=== PATIENT | female | born 1950 | race Caucasian/White ===

== ENCOUNTER 2017-12-08 18:44 | Inpatient (IN) ==
[2017-12-08] MEDS ORDERED: Naloxone 0.4 MG/ML INJ IVP PRN (21:09)
[2017-12-08] MEDS ORDERED: *HR* Metoprolol 5 MG/5 ML VIAL IVP PRN (21:13)
[2017-12-08] MEDS ORDERED: Ringers Solution, Lactated 1,000 ML IVC SCH (21:15)
[2017-12-08] MEDS: Ipratropium/Albuterol Neb 3 ML IH PRN (22:20)
[2017-12-08] MEDS: *HR* Heparin 5,000 UNIT/ML VIAL SQ SCH (22:49)
[2017-12-08] MEDS: Pantoprazole 40 MG VIAL IVP SCH ×2 (22:59→23:33)
--- NOTE | 2017-12-08 23:13 | Internal Med History&Physical ---
Date of Encounter: 12/08/17 Time of Encounter: 23:07 Internal Medicine - H&P: HPI Chief complaint: abdominal pain Admitted From: Hospital to Hospital Transfer Plans for Post Hospital Care: Home History of present illness: Ms. Morales is a 67 year old female presents with chief complaint of abdominal pain. Patient reports she has chronic abdominal pain secondary to abdominal hernias however since 2 weeks ago she had worsening abdominal pain along with nausea, vomiting, diarrhea. She reports a poor appetite secondary to abdominal pain. And pain worsens with movement as well as with coughing. She has chronic cough secondary to COPD. She is not oxygen dependent. Currently she is requiring 4 L. She denies hematemesis, hemoptysis. She is unclear if she has had melena or hematochezia. Patient denies fevers, chills, chest pain, shortness of breath, night sweats. She denies dysuria, hematuria, urinary frequency. She does report that she was treated for UTI with Macrobid recently. She wears a diaper and does not have a Harmon in place. Patient has history of UTIs Past Med Surg Social Fam HX - Past Medical History Medical history: arthritis, COPD, coronary artery disease, GERD, hyperlipidemia , hypertension, osteoporosis Additional medical history: Anemia. stage 3 CKD. Renal Mass Psychiatric history: anxiety - Past Surgical History Additional surgical history: left nephrectomy - Social History Smoking Status: Current every day smoker Alcohol use: none Drug use: none Internal Medicine - H&P: Meds Albuterol Sulfate [Ventolin Hfa] 18 gm IH Q6H 10/07/17 [History] Aspirin [Ecotrin] 325 mg PO DAILY 10/07/17 [History] Diltiazem HCl [Cardizem] 360 mg PO DAILY 10/07/17 [History] Furosemide [Lasix] 20 mg PO DAILY 10/07/17 [History] Isosorbide MONOnitrate (24 HR) [Imdur] 60 mg PO DAILY 10/07/17 [History] Montelukast Sodium [Singulair] 10 mg PO HS 10/07/17 [History] Omeprazole [PriLOSEC] 40 mg PO DAILY 10/07/17 [History] diazePAM [Valium] 10 mg PO DAILY 10/07/17 [History] 3 Allergy/AdvReac Type Severity Reaction Status Date / Time iodine AdvReac See Verified 10/07/17 14:34 Comments All Systems PM: A 10-system review of systems was performed and is negative for pertinent findings except as documented above in the HPI. Review of systems: Constitutional: Denies fever, chills HEENT: Denies headache, trauma, blurry vision, eye discharge, ear pain, ear discharge neck pain, sore throat, rhinorrhea Heart: Denies chest pain palpitations, LE edema Lungs: Poor shortness of breath, cough Abdomen: Reports abdominal pain, nausea, vomiting, diarrhea MSK: Denies back pain, falls, joint pain Kidney: Denies dysuria, hematuria Skin: Denies rash, ulcers Neuro: Denies numbness and tingling Psych: denies axniety, depression - Constitutional Vitals: Temp Pulse Resp BP Pulse Ox 98.3 F 103 18 92/61 88 12/08/17 21:10 12/08/17 21:10 12/08/17 22:24 12/08/17 21:10 12/08/17 22:24 Exam: General: pleasant, moderately distress, weak HEENT: Head atraumatic, normocephalic, EOMI, PERRL, absent ear discharge or trauma, Moist Mucous Membranes, uvula midline Neck: nontender to palpation, absent lymphadenopathy, Cardiovascualr: Sinus tachycardia no murmur, absent gallops or rubs, mild pedal edema bilaterally, radial pulses 2 out of 4 Lungs: Clear to auscultation bilaterally, not in respiratory distress, absent wheezing absent crackles Abdomen: Soft and tender to palpation in the umbilical region. Patient has umbilical hernia as well as right abdominal wall hernia. Skin: warm and dry, absent rash, absent open wounds and nodules MSK: absent clubbing, cyanosis, joints without swelling Neuro: Cranial nerves II through XII intact, UE and LE sensation equal bilaterally, alert oriented 3, Psych: good insight and judgment Internal Med - H&P Results - Labs Labs: Cardiac Enzymes 12/08/17 Range/Units 21:27 Troponin I 0.16 H* (< 0.04) ng/mL - Assessment and plan (1) Sepsis Current Visit: Yes Status: Acute Assessment and plan: presented with leukocytosis, tachycardia, tachypnea along with hypotension Secondary to UTI in conjunction with pancreatitis CT abdomen pelvis shows edema of the pancreas with pancreatic stranding and free fluid. There is no abscess Patient was given Flagyl and ceftriaxone in the ED He was given 2 L normal saline Lactic acid was 0.8 Plan: Obtain CBC in the morning. Telemetry. IV antibiotics. LR 75cc/hr Qualifiers: Sepsis type: sepsis due to unspecified organism Qualified Code(s): A41.9 - Sepsis, unspecified organism (2) UTI (urinary tract infection) Current Visit: Yes Status: Acute Assessment and plan: Patient presents with leukocytosis, hypotension Urinalysis shows turbid urine with pH of 9.0, moderate blood, leukocyte esterase and urine bacteria. There are a few squamous epithelial cells. Urine culture and blood cultures were collected at [facility] We will start patient on ceftriaxone and await culture results Qualifiers: Urinary tract infection type: acute cystitis Hematuria presence: with hematuria Qualified Code(s): N30.01 - Acute cystitis with hematuria (3) Pancreatitis Current Visit: Yes Status: Acute Assessment and plan: Patient presented with worsening abdominal pain for the last couple weeks CT abdomen pelvis showed evidence of pancreatitis. Gallbladder and liver within normal limits. No evidence of ductal dilation. denies alcohol use, trauma Lipase is 1624 LFT, T-ara WNL home meds lasix has been known to cause drug induced pancreatitis. and macrobid has been associated with pancreatitis Clear etiology of pancreatitis obtain triglycerides plan: NPO, zofran prn nausea, LR 75cc/hr, holding pain medication due to low BP. Qualifiers: Chronicity: acute Pancreatitis type: unspecified pancreatitis type Acute pancreatitis complication: no infection or necrosis Qualified Code(s): K85.90 - Acute pancreatitis without necrosis or infection, unspecified (4) Acute renal failure Current Visit: Yes Status: Acute Assessment and plan: NEETU on CKD in presence of sepsis Scr 3.38 previous SCR around 3 plan: strict I/O, avoid nephrotoxic agents, IVF, BMP in AM. Qualifiers: Acute renal failure type: unspecified Qualified Code(s): N17.9 - Acute kidney failure, unspecified (5) Elevated troponin Current Visit: Yes Status: Acute Assessment and plan: patient has had adynamic troponin in setting of NEETU on CKD 0.16, 0.15,0.16 EKg sinus tachycardia without ST elevation or depression no changes to previous denies chest pain likely demand ischemia no previous echocardiogram on file will obtain echo (6) Coronary artery disease Current Visit: Yes Status: Acute Assessment and plan: hx of CAD patient is on aspirin and metoprolol at home w/o chest pain EKG sinus tachycardia without ST elevation or depression plan: patient is NPO will hold aspirin. lopressor prn for HR >120 Qualifiers: Coronary Disease-Associated Artery/Lesion type: [place] artery [place] vs. transplanted heart: [place] heart Associated angina: without angina Qualified Code(s): I25.10 - Atherosclerotic heart disease of [place] coronary artery without angina pectoris (7) Anxiety Current Visit: Yes Status: Acute Assessment and plan: hx of anxiety on valium at home currently calm/ without anxiety will start ativan 0.5mg daily to prevent withdrawal (8) COPD (chronic obstructive pulmonary disease) Current Visit: Yes Status: Acute Assessment and plan: hx of COPD not on O2 at home currently requiring 4L O2 CXR negative for acute changes lung exam clear without crackles or wheezing prn nebulizer suspect patient is having respiratory distress 2nd to pain with respirations and coughing. Qualifiers: COPD type: unspecified COPD Qualified Code(s): J44.9 - Chronic obstructive pulmonary disease, unspecified (9) Aneurysm Current Visit: Yes Status: Acute Assessment and plan: CT abdomen pelvis showed new infrarenal aortic aneurysm 2.9 cm will need repeat follow up in 5 years follow up with PCP - Time Spent With Patient Total time spent is greater than 50% in coordination of care (as documented) at patient's floor/unit and/or counseling patient:
[2017-12-09] MEDS: Ipratropium/Albuterol Neb 3 ML IH PRN ×2 (04:18→21:11)
[2017-12-09] MEDS: Ondansetron 4 MG/2 ML VIAL IVP PRN (05:05)
[2017-12-09 05:14] LABS: Basophils # 0.1 K/mcL (0.0-0.2); Basophils % 0.3 %; Eosinophils # 0.2 K/mcL (0.0-0.6); Eosinophils % 0.8 %; Hematocrit 35.7 % (35.3-44.9); Immature Granulocytes % 0.8 % (0-4); Lymphocytes # 3.1 K/mcL (0.6-4.6); Lymphocytes % 15.3 %; Mean Corpuscular HGB Conc 30.8 g/dL (31.6-35.5); Mean Corpuscular Hemoglobin 29.6 pg (28.0-33.3); Mean Corpuscular Volume 96.2 fL (83.0-100.0); Mean Platelet Volume 9.7 fL (9.4-12.4); Monocytes % 4.9 %; Neutrophils # 15.8 K/mcL (1.6-8.9); Platelet Count 378 K/mcL (140-400); Red Blood Count 3.71 M/mcL (3.82-4.97); Red Cell Distribution Width 16.6 % (11.5-14.5); Segmented Neutrophils % 77.9 %
[2017-12-09 05:39] LABS: Albumin 2.1 g/dL (3.5-5.7); Albumin/Globulin Ratio 0.5 (1.1-2.2); Bilirubin,Total 0.2 mg/dL (0.3-1.0); Calcium 7.9 mg/dL (8.6-10.3); Globulin 4.1 g/dL (2.4-3.5); Total Protein 6.2 g/dL (6.4-8.9)
[2017-12-09] MEDS: *HR* Heparin 5,000 UNIT/ML VIAL SQ SCH ×3 (05:45→23:56)
[2017-12-09] MEDS: Pantoprazole 40 MG VIAL IVP SCH (08:51)
[2017-12-09] MEDS ORDERED: *HR* LORazepam 2 MG/ML VIAL IVP SCH (09:00)
--- NOTE | 2017-12-09 09:31 | Internal Med Progress Note ---
<Devonte Ramos - Last Filed: 12/09/17 10:26> Hospitalist Progress Note - Encounter Date of Encounter: 12/09/17 Time of Encounter: 09:00 - Subjective Interval History: 67 y/o F with hx of multiple abdominal hernias and recurrent UTIs presents to the ED on (12/08) with failure to thrive, increased weakness, and diarrhea. Pt was seen and evaluated at bedside. Pt is A&Ox3. Pt reports chronic abdominal pain as a result of her hernias in the umbilical and right abdominal wall areas however she experienced a worsening in this pain 2 weeks ago with movement and coughing. Pt also began to experience N/V and diarrhea two weeks ago. She describes her diarrhea has being watery. The abdominal pain was so severe pt has developed a poor appetite. Since arriving the pt has not experienced any episodes of diarrhea or felt nauseous. Nausea is currently being controlled with Zofran prn. Pt continues to deny hemoptysis, hematochezia, Pt reports hx of multiple UTIs but is unsure of the timeline she has had them. She has had one recently and was treated with Macrobid Pt additionally has a chronic dry and nonproductive cough secondary to her COPD. Pt has been a daily smoker for most of her life. PMHx includes dx of: arthritis, COPD, CAD, GERD, hyperlipidemia, htn, osteoporosis, anemia, CKD stage III, a renal mass, as well as anxiety. Pt has surgical hx of a left nephrectomy. Upon presenting Troponin levels were drawn OOR at 0.16. Additionally, an elevated lipase of 1624 was found. EKG upon admission showed sinus tachycardia with no ST elevation or depression Pt is currently NPO with a Harmon placed waiting on blood cx results for suspected UTI and echocardiogram to evaluate elevated Troponin levels. Pt is on telemetry with strict monitoring of I/O. - Exam Vitals: Temp Pulse Resp BP Pulse Ox 98.7 F 110 16 110/64 94 12/09/17 07:54 12/09/17 07:54 12/09/17 07:54 12/09/17 07:54 12/09/17 07:54 Exam: General: Pt is fatigued and appears weak. CV: RRR. No murmurs, rubs, or gallops. Radial pulses 2/4. Lung: Pt is experiencing noticeable shortness of breath. Lungs are CTAB. Abdomen: Pt experiences generalized abdominal tenderness with deep palpation - Assessment and Plan (1) Sepsis Current Visit: Yes Status: Acute Assessment and Plan: Pt arrived to the ED (12/08) meeting sepsis criteria of leukocytosis, tachycardia , tachypnea, and hypotension. CT Abdomen and pelvis found edema of the pancreas with pancreatic stranding and free fluid. No abscess noted. D Dimer: 1923 (H) Lactic Acid: 0.8 Pt currently on Ceftriaxone (IV) Pt given IVF (2L saline) LR 75 cc/hr Pt on telemetry CBC from this morning: WBC 20.2 (H), RBC 3.71 (L), Hgb 11 (L) (2) Pancreatitis Current Visit: Yes Status: Acute Assessment and Plan: Pt has had worsening abdominal pain for past [address] abdomen/pelvis found pancreatitis. GB/Liver WNL. No ductal dilation Pt denies alcohol use and trauma Admitting Lipase level of 1624 LFTs and T-ara WNL Etiology of pancreatitis could include pts home medications: Lasix as well as Macrobid TG levels found to be 259 (H), also a possible etiology Pt currently NPO Zofran prn nausea LR 75 cc/hr No current pain meds due to the pts hypotensive state Plan to possibly initiate a TG lowering medication such as fenofibrate following discharge (3) Acute renal failure Current Visit: Yes Status: Acute Assessment and Plan: Creatinine levels currently at 3.07 (H). Previous levels: 3.38 and 3. I/O is being closely watched. Last output 100 mL (wt has remained steady at 62.6 kg) BMP from this morning indicated Na and K WNL. Chloride values OOR Will retake BMP once fluid levels have been stabilized. Plan to increase LR fluids from 75cc/hr to help restore hydration Plan to take Renal ultrasound of the single right kidney and consult nephrology (4) Elevated troponin Current Visit: Yes Status: Acute Assessment and Plan: Pts levels: 0.15, 0.16, 0.16 Levels are checked Q6H EKG finds: sinus tach w/out ST elevation or depression Pt denies any chest pain Echocardiogram is pending (5) COPD (chronic obstructive pulmonary disease) Current Visit: Yes Status: Acute Assessment and Plan: Pt has hx of COPD for which she typically does not need oxygen. Currently pt is on 4L of O2 with a O2Sat of 93 CXR: No acute changes. Mild bibasilar atelectasis and low lung volumes. Lung exam: Pt has nebulizer prn It is possible this respiratory distress is secondary to pts current condition (6) Coronary artery disease Current Visit: Yes Status: Acute Assessment and Plan: Pt has hx of CAD and is taking Aspirin and Metoprolol at home to manage Pt has no complaint of CP Pt currently just taking the metoprolol and has Lopressor prn for HR>120 (7) UTI (urinary tract infection) Current Visit: Yes Status: Acute Assessment and Plan: Urinalysis found turbid urine with a pH of 9.0, moderate blood, leukocyte esterase, urine bacteria, and few squamous epithelial cells. Pt currently on Ceftriaxone awaiting results of blood cx (8) Aneurysm Current Visit: Yes Status: Acute Assessment and Plan: Abdomen CT incidentally found infrarenal aortic aneurysm measuring 2.9cm. As per guidelines, f/u with PCP every 5 yrs to manage (9) Anxiety Current Visit: Yes Status: Acute Assessment and Plan: Pt hx of anxiety for which she takes Valium Pt currently not anxious and has been placed on 0.5 mg Ativan to prevent w/ drawal (10) DVT prophylaxis Current Visit: Yes Status: Acute DVT Prophylaxis: SubQ heparin - Time Spent with Patient Total time spent is greater than 50% in coordination of care (as documented) at patient's floor/unit and/or counseling patient: Greater than 35 minutes Plan of Care Discussed with: patient Internal Medicine: Result - Labs CBC & Chem 7: 12/09/17 04:59 12/09/17 04:59 Labs: Short CBC 12/09/17 Range/Units 04:59 WBC 20.2 H (4.3-11.1) K/mcL Hgb 11.0 L D (11.5-15.4) g/dL Hct 35.7 (35.3-44.9) % Plt Count 378 (140-400) K/mcL Neutrophils # 15.8 H (1.6-8.9) K/mcL BMP 12/09/17 04:59 Sodium 139 Potassium 4.0 Chloride 118 H Carbon Dioxide 12 L BUN 52 H Creatinine 3.07 H Glucose 86 Calcium 7.9 L Cardiac Enzymes 12/08/17 12/09/17 Range/Units 21:27 04:59 Troponin I 0.16 H* 0.16 H* (< 0.04) ng/mL Liver Function 12/09/17 Range/Units 04:59 Total Bilirubin 0.2 L (0.3-1.0) mg/dL AST 7 L (13-39) Units/L ALT 3 L (7-52) Units/L Alkaline Phosphatase 111 H (34-104) Units/L Albumin 2.1 L (3.5-5.7) g/dL Consult Discharge Plan - Plan Referrals: NONE,PCP [Primary Care Provider] - <Levi Topete - Last Filed: 12/09/17 17:45> Hospitalist Progress Note - Encounter Date of Encounter: 12/09/17 - Exam Vitals: Temp Pulse Resp BP Pulse Ox 98.4 F 110 20 120/75 96 12/09/17 15:01 12/09/17 15:01 12/09/17 15:01 12/09/17 15:01 12/09/17 15:01 - Assessment and Plan (1) UTI (urinary tract infection) Current Visit: Yes Status: Acute (2) Sepsis Current Visit: Yes Status: Acute (3) Pancreatitis Current Visit: Yes Status: Acute (4) Aneurysm Current Visit: Yes Status: Inactive (5) Coronary artery disease Current Visit: Yes Status: Acute (6) Anxiety Current Visit: Yes Status: Acute (7) COPD (chronic obstructive pulmonary disease) Current Visit: Yes Status: Chronic (8) Elevated troponin Current Visit: Yes Status: Acute (9) Acute renal failure Current Visit: Yes Status: Acute - Time Spent with Patient Total time spent is greater than 50% in coordination of care (as documented) at patient's floor/unit and/or counseling patient: Internal Medicine: Result - Labs CBC & Chem 7: 12/09/17 04:59 12/09/17 15:15 Labs: Short CBC 12/09/17 Range/Units 04:59 WBC 20.2 H (4.3-11.1) K/mcL Hgb 11.0 L D (11.5-15.4) g/dL Hct 35.7 (35.3-44.9) % Plt Count 378 (140-400) K/mcL Neutrophils # 15.8 H (1.6-8.9) K/mcL BMP 12/09/17 12/09/17 04:59 15:15 Sodium 139 141 Potassium 4.0 4.1 Chloride 118 H 119 H Carbon Dioxide 12 L 16 L BUN 52 H 47 H Creatinine 3.07 H 2.98 H Glucose 86 80 Calcium 7.9 L 8.3 L Cardiac Enzymes 12/08/17 12/09/17 12/09/17 Range/Units 21:27 04:59 10:48 Troponin I 0.16 H* 0.16 H* 0.16 H* (< 0.04) ng/mL Liver Function 12/09/17 Range/Units 04:59 Total Bilirubin 0.2 L (0.3-1.0) mg/dL AST 7 L (13-39) Units/L ALT 3 L (7-52) Units/L Alkaline Phosphatase 111 H (34-104) Units/L Albumin 2.1 L (3.5-5.7) g/dL - Impressions Impressions Echocardiogram 12/09/17 07:00 Impressions: LVEF 65%. Normal LV chamber size, wall thickness and function. Indeterminate diastolic function. Mild right ventricular hypokinesis. No significant valvular dysfunction. No pulmonary hypertension. Estimated RA pressure is 3 mmHg. Left Ventricular Wall Motion: Rest Echo Findings All wall segments showed normal motion. Findings: Study Quality * Technically sub-optimal due to clinical status. ECG Findings * Sinus tachycardia. Left Ventricle * LVEF 65%. * Definity echo contrast was not used. * Normal LV chamber size, wall thickness and function. * Indeterminate diastolic function. Right Ventricle * Mild right ventricular hypokinesis. * RV not well seen, grossly normal size. Left Atrium * Normal left atrial size. Right Atrium * Right atrium is not well visualized. Interatrial Septum * Interatrial septum not well evaluated. Aortic Valve * No aortic regurgitation. * No aortic stenosis. Mitral Valve * Normal mitral valve structure and function. * No mitral regurgitation. Tricuspid Valve * Tricuspid valve not well visualized. * Trace tricuspid regurgitation. * Unable to estimate RVSP due to lack of TR jet. * Estimated RVSP is 33 mmHg. * Estimated RA pressure is 3 mmHg. * No pulmonary hypertension. Pulmonic Valve * Pulmonic valve not well visualized. Aorta * Normally sized aortic root. Pericardium * The pericardium appears normal. IVC * The IVC is not well evaluated. Retroperitoneum Ultrasound 12/09/17 14:30 IMPRESSION: Possible mildly hyperechoic 2.3 cm mass within the upper pole of the right kidney. This finding is suspected to be artifactual possibly representing medical renal disease rather than due to a true renal mass. Either follow-up ultrasound study or MRI of the right kidney is suggested for further evaluation. Left nephrectomy. Cholelithiasis. D/ / 12/09/2017 15:32:11 Donato Whipple MD / asael Interpreting Provider: Donato Whipple MD Chest X-Ray 12/09/17 16:00 IMPRESSION: 1. Suboptimal chest, chin and neck obscuring portions of the upper right and left lung. 2. Bibasilar consolidation, left greater than right with bilateral pleural effusion. Pulmonary edema or pneumonia are considerations. 3. Vascular engorgement and cephalization is demonstrated with bilateral peribronchial cuffing and perivascular haziness typical of congestive heart failure. 4. Mild cardiomegaly. D/ / Jaydon Mojica / Jaydon Mojica Interpreting Provider: Jaydon Mojica - Attending Attestation The history, physical exam, and medical decision making was performed by the medical student either while I was physically present and actively involved or I personally re-performed the exam and medical decision making. I have verified the accuracy of the medical student's documentation with regards to the history, physical exam findings, and medical decision making on 12/09/17. Ms Morales was admitted earlier this AM with acute pancreatitis. She is hungry at this time Exam Alert though somnolent Vitals good except for some tachycardia Abd with tenderness Agree with assessment and plan as above and in H&P <Devonte Ramos S - Last Filed: 12/09/17 10:26> (1) Sepsis Qualifiers: Sepsis type: sepsis due to unspecified organism Qualified Code(s): A41.9 - Sepsis, unspecified organism (3) Acute renal failure Qualifiers: Acute renal failure type: unspecified Qualified Code(s): N17.9 - Acute kidney failure, unspecified (5) COPD (chronic obstructive pulmonary disease) Qualifiers: COPD type: unspecified COPD Qualified Code(s): J44.9 - Chronic obstructive pulmonary disease, unspecified (6) Coronary artery disease Qualifiers: Coronary Disease-Associated Artery/Lesion type: [place] artery [place] vs. transplanted heart: [place] heart Associated angina: without angina Qualified Code(s): I25.10 - Atherosclerotic heart disease of [place] coronary artery without angina pectoris (7) UTI (urinary tract infection) Qualifiers: Urinary tract infection type: acute cystitis Hematuria presence: with hematuria Qualified Code(s): N30.01 - Acute cystitis with hematuria <Levi Topete - Last Filed: 12/09/17 17:45> (1) UTI (urinary tract infection) Qualifiers: Urinary tract infection type: acute cystitis Hematuria presence: with hematuria Qualified Code(s): N30.01 - Acute cystitis with hematuria (2) Sepsis Qualifiers: Sepsis type: sepsis due to unspecified organism Qualified Code(s): A41.9 - Sepsis, unspecified organism (3) Pancreatitis Qualifiers: Chronicity: acute Pancreatitis type: other Acute pancreatitis complication: no infection or necrosis Qualified Code(s): K85.80 - Other acute pancreatitis without necrosis or infection (5) Coronary artery disease Qualifiers: Coronary Disease-Associated Artery/Lesion type: [place] artery [place] vs. transplanted heart: [place] heart Associated angina: without angina Qualified Code(s): I25.10 - Atherosclerotic heart disease of [place] coronary artery without angina pectoris (7) COPD (chronic obstructive pulmonary disease) Qualifiers: COPD type: unspecified COPD Qualified Code(s): J44.9 - Chronic obstructive pulmonary disease, unspecified (9) Acute renal failure Qualifiers: Acute renal failure type: unspecified Qualified Code(s): N17.9 - Acute kidney failure, unspecified
[2017-12-09] MEDS ORDERED: Ringers Solution, Lactated 1,000 ML IVC SCH ×2 (10:26→16:03)
--- NOTE | 2017-12-09 14:01 | Nephrology Consult Note ---
Date of Encounter: 12/09/17 Time of Encounter: 13:50 Assessment and Plan (1) CKD (chronic kidney disease) stage 4, GFR 15-29 ml/min Current Visit: Yes Status: Acute Unsure if this is NEETU related to dehydration or progression of CKD. Spoke with Dr. Barclay agree with IVF at 100/hr, did suggest adding HCO3 since Carbon dioxide is 12. Avoid nephrotoxins and renal dose all medications. Strict I/O. On 11/02/17 Retroperitoneal US did show some hydronephrosis,she does have a Harmon Cath now. UA/Urine NA ordered. Uric Acid and CPK ordered. (2) Pancreatitis Current Visit: Yes Status: Acute Per primary. Qualifiers: Qualified Code(s): K85.90 - Acute pancreatitis without necrosis or infection , unspecified (3) Sepsis Current Visit: Yes Status: Acute Per primary. Qualifiers: Sepsis type: sepsis due to unspecified organism Qualified Code(s): A41.9 - Sepsis, unspecified organism History of Present Illness - Reason for Consult Consult date: 12/09/17 Chronic Kidney Disease - Chief Complaint abdominal pain - History of Present Illness Ms. Morales is a 67 year old female presented with chief complaint of abdominal pain. PMH: arthritis, COPD, coronary artery disease, GERD, hyperlipidemia, hypertension, osteoporosis and CKD III. She is managed outpatient by Dr. Connor. She admits to nausea/vomiting/diarrhea with abdominal pain. She had a left nephrectomy approximately 10 years ago. She denied CP/SOB. She did have a Retroperitoneal US on 11/02/17 which did show hydronephrosis and a possible renal mass. She has seen Dr. Ma and was referred to a urologist in [place] later this month. The daughter did tell me that she does have some hematuria. GFR in September of this year was 16, it is now 15. Agree with IV hydration however would caution with CHF. Renal US already ordered by primary team. NEETU workup initiated. Pt is off the floor at this time for echo. Continue to avoid nephrotoxins if possible. Strict I/O. Past Med Surg Social Fam HX - Past Medical History Medical history: arthritis, COPD, coronary artery disease, GERD, hyperlipidemia , hypertension, osteoporosis Additional medical history: Anemia. stage 3 CKD. Renal Mass Psychiatric history: anxiety - Past Surgical History Additional surgical history: left nephrectomy - Social History Smoking Status: Current every day smoker Alcohol use: none Drug use: none Medications and Allergies Albuterol Sulfate [Ventolin Hfa] 2 puff IH Q6H PRN 10/07/17 [History] Aspirin [Ecotrin] 325 mg PO DAILY 10/07/17 [History] Furosemide [Lasix] 20 mg PO DAILY 10/07/17 [History] Isosorbide MONOnitrate (24 HR) [Imdur] 60 mg PO DAILY 10/07/17 [History] Montelukast Sodium [Singulair] 10 mg PO HS 10/07/17 [History] Omeprazole [PriLOSEC] 40 mg PO DAILY 10/07/17 [History] diazePAM [Valium] 5 mg PO TID PRN 10/07/17 [History] Diltiazem HCl [Cardizem Cd] 360 mg PO DAILY 12/09/17 [History] 3 Allergy/AdvReac Type Severity Reaction Status Date / Time iodine AdvReac See Verified 10/07/17 14:34 Comments Exam - Vital Signs Vital signs: Initial Vital Signs Temp Pulse Resp BP Pulse Ox 98.3 F 103 18 92/61 86 12/08/17 21:10 12/08/17 21:10 12/08/17 21:10 12/08/17 21:10 12/08/17 21:10 Vital Signs - Last 8 Hours Temp Pulse Resp BP Pulse Ox 12/09/17 11:15 98.3 F 109 20 114/63 88 12/09/17 07:54 98.7 F 110 16 110/64 94 Intake and Output 12/08/17 12/09/17 12/09/17 23:59 07:59 15:59 Intake Total 0 / 0 0 / 0 1000 / 1000 Output Total 100 / 100 Balance 0 / 0 -100 / -100 1000 / 1000 Intake: IV Fluids 1000 / 1000 Lactated Ringers 1,000 ML @ 75 1000 / 1000 mls/hr IVC .[id number] [facility] Rx#: [id number] Oral 0 / 0 0 / 0 Output: Urine 50 / 50 Catheter 50 / 50 Other: # Voids 1 1 Weight 62.6 kg 62.6 kg Blood Glucose* 77 Patient Weight 12/09/17 23:59 Weight 62.6 kg Results - Lab Results 12/09/17 04:59 12/09/17 04:59 Most recent lab results Calcium 7.9 mg/dL (8.6-10.3) L 12/09/17 04:59 Consult Discharge Plan - Plan Referrals: NONE,PCP [Primary Care Provider] -
[2017-12-09 15:36] LABS: VBG HCO3 14 mEq/L (21-27); VBG PCO2 38 mmHg (41-51); VBG PH 7.18 pH Units (7.32-7.42); VBG PO2 79 mmHg (25-50)
[2017-12-09] MEDS ORDERED: Sodium Bicarbonate 150 MEQ in D5% in Water 1,000 ML IVC SCH (15:45)
[2017-12-09 15:54] LABS: Calcium 8.3 mg/dL (8.6-10.3); Potassium 4.1 mEq/L (3.5-5.1); Uric Acid 8.2 mg/dL (2.3-7.6)
[2017-12-09] MEDS ORDERED: cefTRIAXone 2,000 MG in Water for inj. (sterile) 20 ML 20 ML IVPB SCH (16:00)
[2017-12-09 19:23] LABS: Bilirubin,Urine Negative (Negative); Blood,Urine Moderate (Negative); Clarity,Urine Turbid (Clear); Color,Urine Yellow (Yellow); Glucose,Urine (UA) Normal (Normal); Ketones,Urine Negative (Negative); Leukocyte Esterase,Urine Large (Negative); Nitrite,Urine Negative (Negative); PH,Urine 6.5 pH Units (5.0-8.0); Protein,Urine 100 mg/dL (Neg-Trace); Specific Gravity,Urine 1.006 (1.010-1.025); Urobilinogen,Urine Normal (Normal)
[2017-12-09 19:24] LABS: Bacteria,Urine None Seen per hpf (None-Few); Hyaline Casts,Urine None Seen per lpf (None-Few); Squamous Epithelial Cell,Urine Moderate per lpf (None-Few); WBC,Urine TNTC per hpf (0-3)
[2017-12-09 19:32] LABS: Protein/Creatinine Ratio,Urine 7.09 mg/mg (0.00-0.20)
[2017-12-10 04:54] LABS: VBG HCO3 22 mEq/L (21-27); VBG PCO2 54 mmHg (41-51); VBG PH 7.22 pH Units (7.32-7.42); VBG PO2 71 mmHg (25-50)
[2017-12-10 04:59] LABS: Hematocrit 35.7 % (35.3-44.9); Hemoglobin 11.1 g/dL (11.5-15.4); Mean Corpuscular HGB Conc 31.1 g/dL (31.6-35.5); Mean Corpuscular Hemoglobin 30.2 pg (28.0-33.3); Mean Corpuscular Volume 97.3 fL (83.0-100.0); Mean Platelet Volume 10.2 fL (9.4-12.4); Platelet Count 381 K/mcL (140-400); Red Blood Count 3.67 M/mcL (3.82-4.97); Red Cell Distribution Width 16.6 % (11.5-14.5)
[2017-12-10 05:25] LABS: Albumin 1.9 g/dL (3.5-5.7); Albumin/Globulin Ratio 0.5 (1.1-2.2); Bilirubin,Total 0.2 mg/dL (0.3-1.0); Calcium 7.9 mg/dL (8.6-10.3); Potassium 3.5 mEq/L (3.5-5.1); Total Protein 5.9 g/dL (6.4-8.9)
[2017-12-10] MEDS: Ipratropium/Albuterol Neb 3 ML IH PRN (05:54)
[2017-12-10] MEDS: Ipratropium/Albuterol Neb 3 ML IH SCH ×5 (08:43→23:29)
[2017-12-10] MEDS: *HR* Heparin 5,000 UNIT/ML VIAL SQ SCH ×2 (08:45→16:24)
[2017-12-10] MEDS: Pantoprazole 40 MG VIAL IVP SCH (08:46)
--- NOTE | 2017-12-10 08:46 | Nephrology Progress Note ---
Date of Encounter: 12/10/17 Time of Encounter: 17:00 - Assessment and Plan (1) CKD (chronic kidney disease) stage 4, GFR 15-29 ml/min Current Visit: Yes Status: Chronic CKD stage IV and she is at her baseline. She initially presented with pancreatitis and required volume expansion. Now that her CXR is suggesting a hypervolemic status (with bibasilar consolidations), I agree with stopping the IVF, and recommend resuming diuretics. I see that her home Rx includes Furosemide 20mg IV x1, so let's start with this as a test dose and titrate by UOP and clinical status/response. She may need D5w tomorrow if the hypernatremia worsens. Meanwhile, continue to follow a renal protective strategy as able by avoiding concomitant nephrotoxic medications / exposures, if able. Continue to follow strict I/Os, daily weights and dosing of renally cleared Rx by eGFR or CrCl. Will follow with you. (2) History of nephrectomy Current Visit: Yes Status: Chronic Hx of left nephrectomy, and in this solitary renal state, this has likely contributed at least in part to her CKD stage IV. (3) Renal cyst, acquired, right Current Visit: Yes Status: Acute Noted on renal U/S to be a mildly hyperechoic right 2.3cm lesion, and I recommend repeat retroperitoneal U/S or CT abd without contrast or MRI abd without gadolinium as an outpt in about 3 months. (4) Pancreatitis Current Visit: Yes Status: Acute Qualifiers: Qualified Code(s): K85.90 - Acute pancreatitis without necrosis or infection , unspecified (5) Sepsis Current Visit: Yes Status: Acute Qualifiers: Sepsis type: sepsis due to unspecified organism Qualified Code(s): A41.9 - Sepsis, unspecified organism (6) Hypernatremia Current Visit: Yes Status: Acute See above. (7) Hypomagnesemia Current Visit: Yes Status: Acute Will provide 2gm Mag Sulfate and I've ordered written instruction to pharmacy to mix in sterile water or D5W (instead of 0.9% saline d/t the mild hypernatremia). She is borderline hypokalemic as well, and since I've added Lasix, I've also ordered a low dose KCl IV since she is NPO. Subjective Principal diagnosis: CKD Interval history: Pt was s/e and her son, daughter and floor RN were present. She reported feeling thirsty. She affirmed having mild central abd pain during the exam. She has nausea with a vomit bag at bedside. Objective - Vital Signs Vital signs: Vital Signs Temp Pulse Resp BP Pulse Ox 12/10/17 07:27 97.5 F L 117 17 101/67 87 12/10/17 05:54 26 87 12/10/17 04:00 97.9 F 110 16 102/66 85 12/10/17 00:00 98 F 121 16 111/65 92 12/09/17 21:16 92 12/09/17 21:11 18 92 12/09/17 20:00 98 F 117 16 117/82 93 12/09/17 15:01 98.4 F 110 20 120/75 96 12/09/17 11:15 98.3 F 109 20 114/63 88 Intake and Output 12/09/17 12/10/17 12/10/17 23:59 07:59 15:59 Intake Total 0 / 0 0 / 0 Output Total 700 / 700 Balance 0 / 0 -700 / -700 Intake: Oral 0 / 0 0 / 0 Output: Urine 300 / 300 Catheter 400 / 400 Other: Weight 63.5 kg Blood Glucose* 79 63 Patient Weight 12/10/17 23:59 Weight 63.5 kg - General Appearance General appearance: Present: appears started age, obese, fatigue, frail EENT: Present: ATNC, mucous membranes dry Neck: Present: supple Respiratory: Present: clear Cardiology: Present: no edema, normal S1, normal S2 Gastrointestinal: Present: normoactive bowel sounds, tenderness (mild without rebound in the epigastric area) Integumentary: Present: no rash, warm and dry Neurologic: Present: no focal deficit, no asterixis Musculoskeletal: Present: no erythema, no clubbing Psychiatric: Present: cooperative - Lab 12/10/17 15:21 12/10/17 15:21 Most recent lab results Calcium 7.9 mg/dL (8.6-10.3) L 12/10/17 04:34 Urine Creatinine 23 mg/dL 12/09/17 19:10 Urine Sodium 68.7 mEq/L 12/09/17 19:10 Urine Total Protein 163 mg/dL (1-14) H 12/09/17 19:10 - Imaging Kidney/bladder ultrasound: report reviewed (left nephrectomy with right renal cyst) Consult Discharge Plan - Plan Referrals: NONE,PCP [Primary Care Provider] -
[2017-12-10] MEDS ORDERED: D5% in Water 1,000 ML IVC PRN (08:48)
[2017-12-10] MEDS ORDERED: Dextrose Gel 15 GM/37.5 ML TUBE PO PRN ×2 (08:48)
[2017-12-10] MEDS ORDERED: *HR* Dextrose 50 % in Water (Syg) 50 ML SYRINGE IVP PRN (08:48)
[2017-12-10] MEDS: Piperacillin/Tazobactam 3.375 GM in 0.9 % Sodium Chloride Mini Bag 100 ML IVPB SCH ×2 (08:57→21:01)
[2017-12-10] MEDS ORDERED: Furosemide 20 MG TABLET PO SCH (09:00)
[2017-12-10] MEDS ORDERED: Ringers Solution, Lactated 1,000 ML IVC SCH (10:00)
--- NOTE | 2017-12-10 10:04 | Internal Med Progress Note ---
<Devonte Ramos - Last Filed: 12/10/17 13:23> Hospitalist Progress Note - Encounter Date of Encounter: 12/10/17 Time of Encounter: 07:30 - Subjective Interval History: 67 y/o F with hx of multiple abdominal hernias and recurrent UTIs presents to the ED on (12/08) with failure to thrive, increased weakness, and diarrhea. Pt was seen and evaluated at bedside. Pt is A&Ox3. Pt reports chronic abdominal pain as a result of her hernias in the umbilical and right abdominal wall areas however she experienced a worsening in this pain 2 weeks ago with movement and coughing. Pt also began to experience N/V and diarrhea two weeks ago. She describes her diarrhea has being watery. The abdominal pain was so severe pt has developed a poor appetite. Since arriving the pt has not experienced any episodes of diarrhea or felt nauseous. Nausea is currently being controlled with Zofran prn. Pt continues to deny hemoptysis, hematochezia, Pt reports hx of multiple UTIs but is unsure of the timeline she has had them. She has had one recently and was treated with Macrobid Pt additionally has a chronic dry and nonproductive cough secondary to her COPD. Pt has been a daily smoker for most of her life. PMHx includes dx of: arthritis, COPD, CAD, GERD, hyperlipidemia, htn, osteoporosis, anemia, CKD stage III, a renal mass, as well as anxiety. Pt has surgical hx of a left nephrectomy and recent renal ultrasound found a mass in her remaining right kidney (12/09/17). Upon presenting (12/09/17) Troponin levels were drawn OOR at 0.16. EKG upon admission showed sinus tachycardia with no ST elevation or depression. Additionally, an elevated lipase of [address] of abdomen and pelvis was significant for pancreatitis and a fluid regimen was started on LR at 77cc/ hr. LR was increased to 150 cc/hr when BMP showed OOR electrolytes consistent with decreased kidney function. CXR taken after this point showed B/L pleural effusion with mild cardiomegaly (). A third CXR taken this morning (12/10) continued to show B/L pulmonary effusions and no pulmonary edema. Echocardiogram was WNL with an EF of 65%. Pt ABG had pH of 7.18. Diffuse rales were heard in the lungs. At this point bicarb was added to pt regimen overnight and LR was taken back down to 100cc/hr This morning pt BMP had improved with kidney function back to pt baseline (SCr from 3.3 at admission to 2.78 today) and ABG showing pH 7.22, pCO2 54 (H), and pO2 71. However vitals were concerning with a downtrending BP. BP at 5:00 this morning was 101/67. Pt was on 8 L of O2 with a Sat around 80% however fluids were stopped this morning. In order to resume fluids and preserve O2 levels pt was switched over to a bipap (FiO2 0.8). Duoneb has been scheduled QH to support respiratory efforts. Nephrology has been consulted. Currently holding fluids and adding Lasix 20mg PO to assist lung function. Urine cx identifies a gram negative catalino. Blood cx results pending. Pt antibiotic switched to Zosyn. Ativan has been D/C until pt requires it Pt glucose level was 63 this morning and D50 was added. Pt is currently NPO with a Harmon placed waiting on blood cx results and repeat CXR to evaluate lungs. Repeat CXRs will be scheduled to monitor lung status. Pt is on telemetry with strict monitoring of I/O. Last urine output was 700 mL. - Exam Vitals: Temp Pulse Resp BP Pulse Ox 97.5 F L 117 24 101/67 91 12/10/17 07:27 12/10/17 07:27 12/10/17 08:43 12/10/17 08:43 12/10/17 08:43 Exam: Head: normocephalic CV: RRR, No murmurs rubs or gallops Lungs: Diffuse rales. Abdomen: Tender to deep palpation - Assessment and Plan (1) Sepsis Current Visit: Yes Status: Acute Assessment and Plan: Pt arrived to the ED (12/08) meeting sepsis criteria of leukocytosis, tachycardia , tachypnea, and hypotension. CT Abdomen and pelvis found edema of the pancreas with pancreatic stranding and free fluid. No abscess noted. D Dimer: 1923 (H) Lactic Acid: 0.5 (12/10), 0.8 (12/09) Urine Cx: Gram negative catalino. Pt given IVF (2L saline) (12/09) On admission pt was given Ceftriaxone, but now due to pts worsening clinical picture with possible infectious etiology, the medication has been switched to Zosyn. Doubt respiratory source. Pt on telemetry (2) Pancreatitis Current Visit: Yes Status: Acute Assessment and Plan: Pt has had worsening abdominal pain for past [address] abdomen/pelvis found pancreatitis. GB/Liver WNL. No ductal dilation Pt denies alcohol use and trauma Admitting Lipase level of 1624 LFTs and T-ara WNL Etiology of pancreatitis could include pts home medications: Lasix as well as Macrobid TG levels found to be 259 (H), also a possible etiology Pt currently NPO Zofran prn nausea LR 75 cc/hr on (12/09) increased to 150cc/hr and later decreased to 100 cc/hr later that day with the pt presenting in an acidotic state.. LR D/C due to declining respiratory capacity and unstable vitals (BP 101/67) this morning (). Nephro consulted due to pt history of left nephrectomy and mass in right kidney. NEETU is improving (Cr has improved from 3.3 to 2.3 which is around patient's baseline). Urine output is 1.5 kg/hr. Filipe's Criteria determined to be 4 points, indicating a 15% predicted mortality Currently fluids are being held and pt is starting Lasix 20mg PO to assist respiratory function with spot diuresis as needed. No current pain meds due to the pts hypotensive stat Plan to recheck lipase Plan to possibly initiate a TG lowering medication such as fenofibrate following discharge (3) Acute renal failure Current Visit: Yes Status: Acute Assessment and Plan: Creatinine levels currently back at baseline at 2.78. Previous levels: 3.38, 3, 3.07, 2.98) I/O is being closely watched. Last output 700 mL LR fluids were increased from 75cc/hr to 150cc/hr to help restore hydration and then later to 100 cc/hr (12/09). Currently pt is not on fluids as to preserve lung function. Current urine out put is 1.5/kg/hr Nephrology was consulted (12/09). Renal ultrasound was taken and found a mass in the right kidney. 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 Currently pt is on 4L of O2 with a O2Sat of 93 CXR: No acute changes. Mild bibasilar atelectasis and low lung volumes. Second CXR taken on (12/09) showed B/L pleural effusion and mild cardiomegaly Lung exam: diffuse rales were heard in pt lungs (12/09) and continue to be present Pt has nebulizer prn It is possible this respiratory distress is secondary to pts current condition Pt is on bipap with FiO2 at 0.8. O2 sat at 93% (6) Coronary artery disease Current Visit: Yes Status: Acute Assessment and Plan: Pt has hx of CAD and is taking Aspirin and Metoprolol at home to manage Pt has no complaint of CP Pt currently just taking the metoprolol and has Lopressor prn for HR>120 (7) UTI (urinary tract infection) Current Visit: Yes Status: Acute Assessment and Plan: Urinalysis found turbid urine with a pH of 9.0, moderate blood, leukocyte esterase, urine bacteria, and few squamous epithelial cells. Urine cx found a gram negative catalino Pt switched from Ceftriaxone to Zosyn Blood cx results pending (8) Aneurysm Current Visit: Yes Status: Acute Assessment and Plan: Abdomen CT incidentally found infrarenal aortic aneurysm measuring 2.9cm. As per guidelines, f/u with PCP every 5 yrs to manage (9) Anxiety Current Visit: Yes Status: Acute Assessment and Plan: Pt hx of anxiety for which she takes Valium Pt currently not anxious and has been placed on 0.5 mg Ativan to prevent w/ drawal (12/09) Ativan D/C (12/10) (10) DVT prophylaxis Current Visit: Yes Status: Acute Assessment and Plan: Heparin SubQ - Time Spent with Patient Total time spent is greater than 50% in coordination of care (as documented) at patient's floor/unit and/or counseling patient: Internal Medicine: Result - Labs CBC & Chem 7: 12/10/17 04:34 12/10/17 04:34 Labs: Short CBC 12/10/17 Range/Units 04:34 WBC 17.1 H (4.3-11.1) K/mcL Hgb 11.1 L (11.5-15.4) g/dL Hct 35.7 (35.3-44.9) % Plt Count 381 (140-400) K/mcL BMP 12/09/17 12/10/17 15:15 04:34 Sodium 141 144 Potassium 4.1 3.5 Chloride 119 H 117 H Carbon Dioxide 16 L 20 L BUN 47 H 45 H Creatinine 2.98 H 2.78 H Glucose 80 93 Calcium 8.3 L 7.9 L Cardiac Enzymes 12/09/17 Range/Units 10:48 Troponin I 0.16 H* (< 0.04) ng/mL Liver Function 12/10/17 Range/Units 04:34 Total Bilirubin 0.2 L (0.3-1.0) mg/dL AST 6 L (13-39) Units/L ALT 3 L (7-52) Units/L Alkaline Phosphatase 109 H (34-104) Units/L Albumin 1.9 L (3.5-5.7) g/dL Urine 12/09/17 Range/Units 19:10 Urine Color Yellow (Yellow) Urine Clarity Turbid A (Clear) Urine pH 6.5 (5.0-8.0) pH Units Ur Specific [place] 1.006 L (1.010-1.025) Urine Protein 100 H (Neg-Trace) mg/dL Urine Glucose (UA) Normal (Normal) mg/dL - Impressions Impressions Echocardiogram 12/09/17 07:00 Impressions: LVEF 65%. Normal LV chamber size, wall thickness and function. Indeterminate diastolic function. Mild right ventricular hypokinesis. No significant valvular dysfunction. No pulmonary hypertension. Estimated RA pressure is 3 mmHg. Left Ventricular Wall Motion: Rest Echo Findings All wall segments showed normal motion. Findings: Study Quality * Technically sub-optimal due to clinical status. ECG Findings * Sinus tachycardia. Left Ventricle * LVEF 65%. * Definity echo contrast was not used. * Normal LV chamber size, wall thickness and function. * Indeterminate diastolic function. Right Ventricle * Mild right ventricular hypokinesis. * RV not well seen, grossly normal size. Left Atrium * Normal left atrial size. Right Atrium * Right atrium is not well visualized. Interatrial Septum * Interatrial septum not well evaluated. Aortic Valve * No aortic regurgitation. * No aortic stenosis. Mitral Valve * Normal mitral valve structure and function. * No mitral regurgitation. Tricuspid Valve * Tricuspid valve not well visualized. * Trace tricuspid regurgitation. * Unable to estimate RVSP due to lack of TR jet. * Estimated RVSP is 33 mmHg. * Estimated RA pressure is 3 mmHg. * No pulmonary hypertension. Pulmonic Valve * Pulmonic valve not well visualized. Aorta * Normally sized aortic root. Pericardium * The pericardium appears normal. IVC * The IVC is not well evaluated. Retroperitoneum Ultrasound 12/09/17 14:30 IMPRESSION: Possible mildly hyperechoic 2.3 cm mass within the upper pole of the right kidney. This finding is suspected to be artifactual possibly representing medical renal disease rather than due to a true renal mass. Either follow-up ultrasound study or MRI of the right kidney is suggested for further evaluation. Left nephrectomy. Cholelithiasis. D/ / 12/09/2017 15:32:11 Donato Whipple MD / asael Interpreting Provider: Donato Whipple MD Chest X-Ray 12/09/17 16:00 IMPRESSION: 1. Suboptimal chest, chin and neck obscuring portions of the upper right and left lung. 2. Bibasilar consolidation, left greater than right with bilateral pleural effusion. Pulmonary edema or pneumonia are considerations. 3. Vascular engorgement and cephalization is demonstrated with bilateral peribronchial cuffing and perivascular haziness typical of congestive heart failure. 4. Mild cardiomegaly. D/ / Jaydon Mojica / Jaydon Mojica Interpreting Provider: Jaydon Mojica Consult Discharge Plan - Plan Referrals: NONE,PCP [Primary Care Provider] - <Levi Topete - Last Filed: 12/10/17 18:31> Hospitalist Progress Note - Encounter Date of Encounter: 12/10/17 - Exam Vitals: Temp Pulse Resp BP Pulse Ox 97.8 F 120 20 109/69 88 12/10/17 15:10 12/10/17 18:15 12/10/17 18:15 12/10/17 18:15 12/10/17 18:15 - Assessment and Plan (1) Respiratory failure Current Visit: Yes Status: Acute (2) UTI (urinary tract infection) Current Visit: Yes Status: Acute (3) Sepsis Current Visit: Yes Status: Acute (4) Pancreatitis Current Visit: Yes Status: Acute (5) Coronary artery disease Current Visit: Yes Status: Acute (6) Anxiety Current Visit: Yes Status: Acute (7) COPD (chronic obstructive pulmonary disease) Current Visit: Yes Status: Chronic (8) Elevated troponin Current Visit: Yes Status: Acute (9) Acute renal failure Current Visit: Yes Status: Acute (10) Hypernatremia Current Visit: Yes Status: Acute - Time Spent with Patient Total time spent is greater than 50% in coordination of care (as documented) at patient's floor/unit and/or counseling patient: Internal Medicine: Result - Labs CBC & Chem 7: 12/10/17 15:21 12/10/17 15:21 Labs: Short CBC 12/10/17 12/10/17 Range/Units 04:34 15:21 WBC 17.1 H 17.7 H (4.3-11.1) K/mcL Hgb 11.1 L 10.8 L (11.5-15.4) g/dL Hct 35.7 34.6 L (35.3-44.9) % Plt Count 381 365 (140-400) K/mcL BMP 12/10/17 12/10/17 04:34 15:21 Sodium 144 147 H Potassium 3.5 3.5 Chloride 117 H 118 H Carbon Dioxide 20 L 23 BUN 45 H 44 H Creatinine 2.78 H 2.89 H Glucose 93 98 Calcium 7.9 L 7.8 L Cardiac Enzymes 12/10/17 Range/Units 15:21 Troponin I 0.11 H* (< 0.04) ng/mL Liver Function 12/10/17 Range/Units 04:34 Total Bilirubin 0.2 L (0.3-1.0) mg/dL AST 6 L (13-39) Units/L ALT 3 L (7-52) Units/L Alkaline Phosphatase 109 H (34-104) Units/L Albumin 1.9 L (3.5-5.7) g/dL Urine 12/09/17 Range/Units 19:10 Urine Color Yellow (Yellow) Urine Clarity Turbid A (Clear) Urine pH 6.5 (5.0-8.0) pH Units Ur Specific [place] 1.006 L (1.010-1.025) Urine Protein 100 H (Neg-Trace) mg/dL Urine Glucose (UA) Normal (Normal) mg/dL - ABG Interpretation ABG results: ABG ABG pH 7.31 pH Units (7.32-7.45) L 12/10/17 15:16 ABG pCO2 46 mmHg (35-45) H 12/10/17 15:16 ABG pO2 71 mmHg (85-104) L 12/10/17 15:16 ABG O2 Saturation 92 % (95-98) L 12/10/17 15:16 - Impressions Impressions Chest X-Ray 12/10/17 08:05 IMPRESSION: Stable examination with bilateral pleural effusions and bibasilar atelectasis. Findings suggesting emphysema. D/ / Zen Avelar MD / Zen Avelar MD Interpreting Provider: Zen Avelar MD - Attending Attestation The history, physical exam, and medical decision making was performed by the medical student either while I was physically present and actively involved or I personally re-performed the exam and medical decision making. I have verified the accuracy of the medical student's documentation with regards to the history, physical exam findings, and medical decision making on 12/10/17. Ms Morales is currently admitted for acute pancreatitis and renal failure. She remains moderate to high risk due to potential for worsening clinical status. Ms Morales is more hypoxic today. No fever or chills. Placed on bipap. Blood pressure has been on low side. Fluids held earlier due to concern for pulmonary edema. CXR shows effusions but not edema. More alert now and pulling at bipap. Exam alert Mild resp distress Mucus membranes dry Heart tachy Lungs diminished bases - no rales or rhonchi Abd soft - tender in epigastric region. No edema Labs reviewed. Lipase improving. Trop same. WBC elevated. Lactate normal. Creatinine about the same. I/P 1. Hypoxic and hypercarbic resp failure - bipap today 2. Tachycardia - takes benzo at home. Restart low dose 3. Acute pancreatitis Further diagnoses and plan as above. <Devonte Ramos - Last Filed: 12/10/17 13:23> (1) Sepsis Qualifiers: Sepsis type: sepsis due to unspecified organism Qualified Code(s): A41.9 - Sepsis, unspecified organism (3) Acute renal failure Qualifiers: Acute renal failure type: unspecified Qualified Code(s): N17.9 - Acute kidney failure, unspecified (5) COPD (chronic obstructive pulmonary disease) Qualifiers: COPD type: unspecified COPD Qualified Code(s): J44.9 - Chronic obstructive pulmonary disease, unspecified (6) Coronary artery disease Qualifiers: Coronary Disease-Associated Artery/Lesion type: [place] artery [place] vs. transplanted heart: beaver heart Associated angina: without angina Qualified Code(s): I25.10 - Atherosclerotic heart disease of beaver coronary artery without angina pectoris (7) UTI (urinary tract infection) Qualifiers: Urinary tract infection type: acute cystitis Hematuria presence: with hematuria Qualified Code(s): N30.01 - Acute cystitis with hematuria <Levi Topete - Last Filed: 12/10/17 18:31> (1) Respiratory failure Qualifiers: Chronicity: acute Respiratory failure complication: hypoxia and hypercapnia Qualified Code(s): J96.01 - Acute respiratory failure with hypoxia; J96.02 - Acute respiratory failure with hypercapnia (2) UTI (urinary tract infection) Qualifiers: Urinary tract infection type: acute cystitis Hematuria presence: with hematuria Qualified Code(s): N30.01 - Acute cystitis with hematuria (3) Sepsis Qualifiers: Sepsis type: sepsis due to unspecified organism Qualified Code(s): A41.9 - Sepsis, unspecified organism (4) Pancreatitis Qualifiers: Chronicity: acute Pancreatitis type: other Acute pancreatitis complication: no infection or necrosis Qualified Code(s): K85.80 - Other acute pancreatitis without necrosis or infection (5) Coronary artery disease Qualifiers: Coronary Disease-Associated Artery/Lesion type: [place] artery [place] vs. transplanted heart: beaver heart Associated angina: without angina Qualified Code(s): I25.10 - Atherosclerotic heart disease of [place] coronary artery without angina pectoris (7) COPD (chronic obstructive pulmonary disease) Qualifiers: COPD type: unspecified COPD Qualified Code(s): J44.9 - Chronic obstructive pulmonary disease, unspecified (9) Acute renal failure Qualifiers: Acute renal failure type: unspecified Qualified Code(s): N17.9 - Acute kidney failure, unspecified
[2017-12-10 13:30] LABS: Magnesium 1.6 mg/dL (1.6-2.6)
[2017-12-10] MEDS ORDERED: Albumin 25% 12.5gm/50mL 12.5 GM/50 ML IV.SOLN IVPB ONE (15:04)
[2017-12-10 15:21] LABS: ABG Base Excess -3 mEq/L (-2 to 3); ABG HCO3 23 mEq/L (21-27); ABG Oxygen Saturation 92 % (95-98); ABG PCO2 46 mmHg (35-45); ABG PH 7.31 pH Units (7.32-7.45); ABG PO2 71 mmHg (85-104); ABG TCO2 24 mEq/L (20-26); Blood Gas Modality NIV; Blood Gas VT 350 cc
[2017-12-10 15:35] LABS: Hematocrit 34.6 % (35.3-44.9); Hemoglobin 10.8 g/dL (11.5-15.4); Mean Corpuscular HGB Conc 31.2 g/dL (31.6-35.5); Mean Corpuscular Hemoglobin 30.7 pg (28.0-33.3); Mean Corpuscular Volume 98.3 fL (83.0-100.0); Platelet Count 365 K/mcL (140-400); Red Blood Count 3.52 M/mcL (3.82-4.97); Red Cell Distribution Width 16.9 % (11.5-14.5)
[2017-12-10 16:00] LABS: Calcium 7.8 mg/dL (8.6-10.3); Potassium 3.5 mEq/L (3.5-5.1)
[2017-12-10 16:05] LABS: Troponin I 0.11 ng/mL (< 0.04)
[2017-12-10] MEDS ORDERED: Furosemide 20 MG/2 ML VIAL IVP ONE (17:24)
--- NOTE | 2017-12-10 17:26 | Electrocardiograph Report ---
[place] [id number] Test Date: 2017-12-08 Pat Name: Mamta Morales Department: 111 Room: [id number] Gender: F [employer] Clerk: [id number] : 1950 Requested By: Levi Topete Order Number: [id number] Reading MD: Felisa Stewart Measurements Intervals [place] Rate: 104 P: 71 AK: 162 QRS: 32 QRSD: 90 T: 65 QT: 359 QTc: 420 Interpretive Statements SINUS TACHYCARDIA LOW QRS VOLTAGE IN PRECORDIAL LEADS NONSPECIFIC T-WAVE ABNORMALITY ABNORMAL RHYTHM ECG Electronically Signed On 12-10-2017 17:25:09 EDT by Felisa Stewart
[2017-12-11] MEDS: Ipratropium/Albuterol Neb 3 ML IH SCH ×5 (03:45→20:02)
[2017-12-11 05:00] LABS: Hematocrit 33.3 % (35.3-44.9); Hemoglobin 10.2 g/dL (11.5-15.4); Mean Corpuscular HGB Conc 30.6 g/dL (31.6-35.5); Mean Corpuscular Hemoglobin 29.7 pg (28.0-33.3); Mean Corpuscular Volume 97.1 fL (83.0-100.0); Mean Platelet Volume 10.2 fL (9.4-12.4); Platelet Count 336 K/mcL (140-400); Red Blood Count 3.43 M/mcL (3.82-4.97); Red Cell Distribution Width 16.9 % (11.5-14.5)
[2017-12-11] MEDS: Ondansetron 4 MG/2 ML VIAL IVP PRN (05:11)
[2017-12-11 05:18] LABS: Calcium 8.2 mg/dL (8.6-10.3)
[2017-12-11 05:19] LABS: Magnesium 2.4 mg/dL (1.6-2.6); Phosphorous 3.3 mg/dL (2.7-4.5)
[2017-12-11] MEDS ORDERED: Furosemide 20 MG/2 ML VIAL IVP ONE (05:35)
--- NOTE | 2017-12-11 08:03 | Internal Med Progress Note ---
<Levi Topete - Last Filed: 12/11/17 16:17> Hospitalist Progress Note - Encounter Date of Encounter: 12/11/17 - Exam Vitals: Temp Pulse Resp BP Pulse Ox 98.1 F 120 18 106/68 90 12/11/17 15:32 12/11/17 15:32 12/11/17 15:39 12/11/17 15:32 12/11/17 15:39 - Assessment and Plan (1) Respiratory failure Current Visit: Yes Status: Acute (2) UTI (urinary tract infection) Current Visit: Yes Status: Acute (3) Sepsis Current Visit: Yes Status: Acute (4) Pancreatitis Current Visit: Yes Status: Acute (5) Coronary artery disease Current Visit: Yes Status: Acute (6) Anxiety Current Visit: Yes Status: Acute (7) COPD (chronic obstructive pulmonary disease) Current Visit: Yes Status: Chronic (8) Elevated troponin Current Visit: Yes Status: Acute (9) Acute renal failure Current Visit: Yes Status: Acute (10) Hypernatremia Current Visit: Yes Status: Acute - Time Spent with Patient Total time spent is greater than 50% in coordination of care (as documented) at patient's floor/unit and/or counseling patient: Internal Medicine: Result - Labs CBC & Chem 7: 12/11/17 04:43 12/11/17 04:43 Labs: Short CBC 12/11/17 Range/Units 04:43 WBC 15.8 H (4.3-11.1) K/mcL Hgb 10.2 L (11.5-15.4) g/dL Hct 33.3 L (35.3-44.9) % Plt Count 336 (140-400) K/mcL BMP 12/11/17 04:43 Sodium 150 H Potassium 4.0 Chloride 120 H Carbon Dioxide 22 L BUN 43 H Creatinine 2.90 H Glucose 94 Calcium 8.2 L - ABG Interpretation ABG results: ABG ABG pH 7.31 pH Units (7.32-7.45) L 12/10/17 15:16 ABG pCO2 46 mmHg (35-45) H 12/10/17 15:16 ABG pO2 71 mmHg (85-104) L 12/10/17 15:16 ABG O2 Saturation 92 % (95-98) L 12/10/17 15:16 PT/INR, D-dimer PT 12.2 Seconds (9.4-12.1) H 12/11/17 08:30 - Impressions Impressions Chest X-Ray 12/11/17 05:36 IMPRESSION: No substantial change in bilateral effusions, edema and basilar opacities. D/ / Ramsey Luciano / Ramsey Luciano Interpreting Provider: Ramsey Luciano Consult Discharge Plan - Plan Referrals: NONE,PCP [Primary Care Provider] - - Attending Attestation I examined this patient and my medical decision-making was reviewed with the Resident Physician on 12/11/17. I agree with the documented findings, disposition and treatment plan as described except to the extent set forth below. Ms Morales is currently admitted for acute hypoxic resp failure and pancreatitis. She remains high risk due to potential for worsening respiratory status. Ms Morales had a rough night. She remains tachycardic. No fever or chills. WBC somewhat better. On bipap. Seems to be more oriented and awake at this time. No CP. Still with some abd pain and nausea. Exam alert More awake and interactive Mucus membranes dry Heart reg and tachy Decreased breath sounds. No wheeze Abd soft. Mild epigastric tenderness. No edema Labs reviewed I/P 1. Resp failure - CXR not impressive for fluid or infiltrate. Remains tachycardic. Will start heparin - unable to do CTA due to renal function. Would be difficult to do V/Q with current respiratory status. 2. Pancreatitis - supportive care 3. Hypernatremia - hypotonic fluids for now Further diagnoses and plan as above. <Cb Barclay - Last Filed: 12/11/17 18:00> Hospitalist Progress Note - Encounter Date of Encounter: 12/11/17 Time of Encounter: 08:00 - Subjective Interval History: Ms. Morales continues to describe thirst, she does respond in short sentences and makes good eye contact, more energy today. Less slouched posture. Mild abdominal pain. - Exam Vitals: Temp Pulse Resp BP Pulse Ox 97.6 F 111 20 108/66 99 12/11/17 07:42 12/11/17 07:42 12/11/17 07:42 12/11/17 07:42 12/11/17 07:42 Exam: PHYSICAL EXAM: Head exam: Present: atraumatic, normocephalic Eye exam: Present: conjuntiva pink, sclera anicteric, EOMI Neck exam Present: supple, trachea midline. Absent: lymphadenopathy Respiratory exam: Present: modest resp effort, on rebreather, normal chest wall excursion. Absent: accessory muscle use, rales, rhonchi, wheezes Cardiovascular exam: Present: RRR, +S1, +S2. Absent: diastolic murmur, gallop, rubs, systolic murmur GI/Abdominal exam: Present: normal bowel sounds, soft, no peritoneal signs, midline herination (chronic), mild tenderness on palpation of hernia - reduceable Extremities exam: Present: warm, radial pulses palpable and symmetrical. Absent : calf tenderness, cyanotic, pedal edema Neurological exam: Present: oriented X3, no focal deficits. Absent: facial droop, speech deficit Skin exam: Present: dry, intact - Assessment and Plan (1) Acute respiratory failure with hypoxia and hypercarbia Current Visit: Yes Status: Acute Assessment and Plan: In setting of acute pancreatitis Underlying COPD/emphasematous changes on CXR ECHO 65%, CXR shows no pulm edema Concern for PE due to tachycardia and hypoxia, on heparin gtt, ordering venous studies; imaging with CTA or VQ difficult in clinical picture due to patient's CKD and poor resp effort respectively continue bipap, nonrebreather, duonebs, steroid (2) Sepsis Current Visit: Yes Status: Acute Assessment and Plan: Sepsis in setting of acute pancreatitis wt ct 15.8 (17.7, 20.2) last abg 7.31 MAP in 80s today compared to 65-70 yesterday Remains tachycardic UOP has been >1 x2 days, creatinine at baseline Continue fluid resuscitation today, electrolyte repletion (s/p mag and calcium) , non-rebreather (3) Pancreatitis Current Visit: Yes Status: Acute Assessment and Plan: Acute pancreatitis: lipase downtrending 208 (216, 1624) Negative gallstone workup, denies alcohol, has history of macrobid use plan as above (4) UTI (urinary tract infection) Current Visit: Yes Status: Acute Assessment and Plan: Patient presents with leukocytosis, hypotension Urinalysis shows turbid urine with pH of 9.0, moderate blood, leukocyte esterase and urine bacteria. There are a few squamous epithelial cells. Urine culture and blood cultures were collected at [facility] Urine Culture has grown Klebsiella - abx coverage adequate (5) Coronary artery disease Current Visit: Yes Status: Acute Assessment and Plan: echo this admission shows lvef 65%, ecg without ischemic changes, doubt acs (6) Anxiety Current Visit: Yes Status: Acute Assessment and Plan: Pt hx of anxiety for which she takes Valium Pt currently not anxious and has been placed on 0.5 mg Ativan to prevent w/ drawal (12/09) Ativan D/C (12/10) (7) COPD (chronic obstructive pulmonary disease) Current Visit: Yes Status: Chronic Assessment and Plan: emphasematous changes on CXR continue duoneb eron, o2 titration (8) Elevated troponin Current Visit: Yes Status: Acute Assessment and Plan: elevated in setting of acute resp failure, likely demand (9) Acute renal failure Current Visit: Yes Status: Acute Assessment and Plan: 3.3->3.0->1.9 near baseline 150 sodium in setting of 3rd spacing from acute pancreatitis and IVF with .9NS; switching to d5-1/2NS UOP good >1cc/kg/hr (10) Aneurysm Current Visit: Yes Status: Acute Assessment and Plan: Abdomen CT incidentally found infrarenal aortic aneurysm measuring 2.9cm. As per guidelines, f/u with PCP every 5 yrs to manage (11) Dysphagia Current Visit: Yes Status: Acute Assessment and Plan: 12/11 x1 cough episode when taking Cardizem per RN Ordering speech eval - pt to be in sitting position for meds and for eval (12) DVT prophylaxis Current Visit: Yes Status: Acute Assessment and Plan: currently on heparin drip for concern for possible PE - Time Spent with Patient Total time spent is greater than 50% in coordination of care (as documented) at patient's floor/unit and/or counseling patient: Internal Medicine: Result - Labs CBC & Chem 7: 12/11/17 04:43 12/11/17 04:43 Labs: Short CBC 12/10/17 12/11/17 Range/Units 15:21 04:43 WBC 17.7 H 15.8 H (4.3-11.1) K/mcL Hgb 10.8 L 10.2 L (11.5-15.4) g/dL Hct 34.6 L 33.3 L (35.3-44.9) % Plt Count 365 336 (140-400) K/mcL BMP 12/10/17 12/10/17 12/11/17 04:34 15:21 04:43 Sodium 144 147 H 150 H Potassium 3.5 3.5 4.0 Chloride 117 H 118 H 120 H Carbon Dioxide 20 L 23 22 L BUN 45 H 44 H 43 H Creatinine 2.78 H 2.89 H 2.90 H Glucose 93 98 94 Calcium 7.9 L 7.8 L 8.2 L Cardiac Enzymes 12/10/17 Range/Units 15:21 Troponin I 0.11 H* (< 0.04) ng/mL Liver Function 12/10/17 Range/Units 04:34 Total Bilirubin 0.2 L (0.3-1.0) mg/dL AST 6 L (13-39) Units/L ALT 3 L (7-52) Units/L Alkaline Phosphatase 109 H (34-104) Units/L Albumin 1.9 L (3.5-5.7) g/dL - ABG Interpretation ABG results: ABG ABG pH 7.31 pH Units (7.32-7.45) L 12/10/17 15:16 ABG pCO2 46 mmHg (35-45) H 12/10/17 15:16 ABG pO2 71 mmHg (85-104) L 12/10/17 15:16 ABG O2 Saturation 92 % (95-98) L 12/10/17 15:16 - Impressions Impressions Chest X-Ray 12/10/17 08:05 IMPRESSION: Stable examination with bilateral pleural effusions and bibasilar atelectasis. Findings suggesting emphysema. D/ / Zen Avelar MD / Zen Avelar MD Interpreting Provider: Zen Avelar MD Chest X-Ray 12/11/17 05:36 IMPRESSION: No substantial change in bilateral effusions, edema and basilar opacities. D/ / Ramsey Luciano / Ramsey Luciano Interpreting Provider: Ramsey Luciano <Levi Topete - Last Filed: 12/11/17 16:17> (1) Respiratory failure Qualifiers: Chronicity: acute Respiratory failure complication: hypoxia and hypercapnia Qualified Code(s): J96.01 - Acute respiratory failure with hypoxia; J96.02 - Acute respiratory failure with hypercapnia (2) UTI (urinary tract infection) Qualifiers: Urinary tract infection type: acute cystitis Hematuria presence: with hematuria Qualified Code(s): N30.01 - Acute cystitis with hematuria (3) Sepsis Qualifiers: Sepsis type: sepsis due to unspecified organism Qualified Code(s): A41.9 - Sepsis, unspecified organism (4) Pancreatitis Qualifiers: Chronicity: acute Pancreatitis type: other Acute pancreatitis complication: no infection or necrosis Qualified Code(s): K85.80 - Other acute pancreatitis without necrosis or infection (5) Coronary artery disease Qualifiers: Coronary Disease-Associated Artery/Lesion type: [place] artery [place] vs. transplanted heart: [place] heart Associated angina: without angina Qualified Code(s): I25.10 - Atherosclerotic heart disease of [place] coronary artery without angina pectoris (7) COPD (chronic obstructive pulmonary disease) Qualifiers: COPD type: unspecified COPD Qualified Code(s): J44.9 - Chronic obstructive pulmonary disease, unspecified (9) Acute renal failure Qualifiers: Acute renal failure type: unspecified Qualified Code(s): N17.9 - Acute kidney failure, unspecified <Cb Barclay - Last Filed: 12/11/17 18:00> (2) Sepsis Qualifiers: Sepsis type: sepsis due to unspecified organism Qualified Code(s): A41.9 - Sepsis, unspecified organism (3) Pancreatitis Qualifiers: Chronicity: acute Pancreatitis type: other Acute pancreatitis complication: no infection or necrosis Qualified Code(s): K85.80 - Other acute pancreatitis without necrosis or infection (4) UTI (urinary tract infection) Qualifiers: Urinary tract infection type: acute cystitis Hematuria presence: with hematuria Qualified Code(s): N30.01 - Acute cystitis with hematuria (5) Coronary artery disease Qualifiers: Coronary Disease-Associated Artery/Lesion type: [place] artery [place] vs. transplanted heart: [place] heart Associated angina: without angina Qualified Code(s): I25.10 - Atherosclerotic heart disease of [place] coronary artery without angina pectoris (7) COPD (chronic obstructive pulmonary disease) Qualifiers: COPD type: unspecified COPD Qualified Code(s): J44.9 - Chronic obstructive pulmonary disease, unspecified (9) Acute renal failure Qualifiers: Acute renal failure type: unspecified Qualified Code(s): N17.9 - Acute kidney failure, unspecified
[2017-12-11] MEDS ORDERED: *HR* Heparin 5,000 UNIT/ML VIAL IVP ONE (08:04)
[2017-12-11] MEDS ORDERED: *HR* Heparin 5,000 UNIT/ML VIAL IVP PRN ×2 (08:04)
[2017-12-11] MEDS: D5% in 0.45% NACL 1,000 ML IVC SCH (09:11)
[2017-12-11] MEDS: Pantoprazole 40 MG VIAL IVP SCH (09:11)
[2017-12-11] MEDS: Piperacillin/Tazobactam 3.375 GM in 0.9 % Sodium Chloride Mini Bag 100 ML IVPB SCH ×2 (09:11→20:59)
[2017-12-11 09:13] LABS: Heparin anti-factor XA UFH 0.08 IU/mL (0.30-0.70)
[2017-12-11 09:14] LABS: INR 1.1; Prothrombin Time 12.2 Seconds (9.4-12.1)
[2017-12-11] MEDS: Heparin 25,000 UNIT/500 ML D5W 25,000 UNIT/500 ML BAG IVC SCH (11:25)
[2017-12-11] MEDS: *HR* Heparin 5,000 UNIT/ML VIAL SQ SCH ×3 (11:27→16:52)
--- NOTE | 2017-12-11 13:36 | Nephrology Progress Note ---
Date of Encounter: 12/11/17 Time of Encounter: 10:55 - Assessment and Plan (1) CKD (chronic kidney disease) stage 4, GFR 15-29 ml/min Current Visit: Yes Status: Chronic CKD stage IV and she is at or at least very near her baseline. No need for [employer] at this time. Hypernatremia: likely d/t her being NPO from the pancreatitis. She has an intact thirst, and reported feeling considerably thirsty. Meanwhile, a hypotonic IVF is very prudent such as 1/2NS or D5W, as you have already started : agree. Meanwhile, continue to follow a renal protective strategy as able by avoiding concomitant nephrotoxic medications / exposures, if able. Continue to follow strict I/Os, daily weights and dosing of renally cleared Rx by eGFR or CrCl. Will follow with you. (2) History of nephrectomy Current Visit: Yes Status: Chronic Hx of left nephrectomy, and in this solitary renal state, this has likely contributed at least in part to her CKD stage IV. (3) Renal cyst, acquired, right Current Visit: Yes Status: Acute Noted on renal U/S to be a mildly hyperechoic right 2.3cm lesion, and I recommend repeat retroperitoneal U/S or CT abd without contrast or MRI abd without gadolinium as an outpt in about 3 months. (4) Pancreatitis Current Visit: Yes Status: Acute Per primary. Qualifiers: Qualified Code(s): K85.90 - Acute pancreatitis without necrosis or infection , unspecified (5) Sepsis Current Visit: Yes Status: Acute Qualifiers: Sepsis type: sepsis due to unspecified organism Qualified Code(s): A41.9 - Sepsis, unspecified organism (6) Hypernatremia Current Visit: Yes Status: Acute See above. (7) Hypomagnesemia Current Visit: Yes Status: Acute S/p Mag Sulfate. Should follow levels. Subjective Principal diagnosis: CKD Interval history: Pt was s/e in her 2NE room. She was by herself, and she did not report N/V today but that she has been thirst the last few days. She did not report CP or diarrhea. She feels more hungry she said as well. Objective - Vital Signs Vital signs: Vital Signs Temp Pulse Resp BP Pulse Ox 12/11/17 11:49 20 108/72 89 12/11/17 11:47 98.7 F 118 20 108/72 90 12/11/17 08:00 18 98 12/11/17 07:42 97.6 F 111 20 108/66 99 12/11/17 04:00 97.8 F 113 26 109/66 88 12/11/17 03:45 21 92 12/11/17 00:27 21 93 12/10/17 23:29 22 93 12/10/17 22:00 97.8 F 19 11 110/95 91 12/10/17 21:00 91 12/10/17 20:12 26 92 12/10/17 20:00 97.8 F 120 22 94/60 91 12/10/17 18:15 120 20 109/69 88 12/10/17 15:31 30 87/59 93 12/10/17 15:10 97.8 F 128 17 93/54 94 12/10/17 14:57 127 22 85/54 93 Intake and Output 12/10/17 12/11/17 12/11/17 23:59 07:59 15:59 Intake Total 220 / 220 100 / 100 Output Total 394 / 394 800 / 800 Balance -174 / -174 -700 / -700 Intake: IV Fluids 100 / 100 100 / 100 Zosyn 3.375 GM In 0.9 % Sodium 100 / 100 Chloride (Mini-Bag +) 100 ML @ 25 mls/hr IVPB Q12H [facility] Rx#: [id number] Potassium Chloride 10 mEq/100mL 100 / 100 10 meq In 100 ml @ 100 mls/hr IVPB Q1H [facility] Rx#:[id number] Oral 120 / 120 0 / 0 Output: Catheter 394 / 394 800 / 800 Other: Stool Size Small Stool Consistency loose Stool Color Brown # Bowel Movement Diapers 1 Weight 63.7 kg Blood Glucose* 102 105 90 Patient Weight 12/11/17 23:59 Weight 63.7 kg - General Appearance General appearance: Present: well-developed, appears started age, chronically ill, frail EENT: Present: ATNC, PERRL, mucous membranes moist Neck: Present: supple Respiratory: Present: course breath sounds Cardiology: Present: no edema, normal S1, normal S2 Gastrointestinal: Present: normoactive bowel sounds, no tenderness, no guarding Integumentary: Present: no rash, warm and dry Neurologic: Present: no focal deficit, no asterixis, alert and oriented x3 Musculoskeletal: Present: no deformities, no erythema, no cyanosis Psychiatric: Present: mood/affect appropriate, cooperative - Lab 12/13/17 05:54 12/13/17 05:54 Most recent lab results ABG pH 7.31 pH Units (7.32-7.45) L 12/10/17 15:16 ABG pCO2 46 mmHg (35-45) H 12/10/17 15:16 ABG pO2 71 mmHg (85-104) L 12/10/17 15:16 ABG HCO3 23 mEq/L (21-27) 12/10/17 15:16 ABG O2 Saturation 92 % (95-98) L 12/10/17 15:16 Calcium 8.2 mg/dL (8.6-10.3) L 12/11/17 04:43 Phosphorus 3.3 mg/dL (2.7-4.5) 12/11/17 04:43 Magnesium 2.4 mg/dL (1.6-2.6) 12/11/17 04:43 Urine Creatinine 23 mg/dL 12/09/17 19:10 Urine Sodium 68.7 mEq/L 12/09/17 19:10 Urine Total Protein 163 mg/dL (1-14) H 12/09/17 19:10 Consult Discharge Plan - Plan Referrals: NONE,PCP [Primary Care Provider] -
[2017-12-11] MEDS: Insulin LISPRO 300 UNITS/3 ML VIAL SQ SCH ×2 (14:47→18:12)
[2017-12-11] MEDS: MethylPREDNISolone 40 MG/ML VIAL IVP SCH (20:58)
[2017-12-12] MEDS: Ipratropium/Albuterol Neb 3 ML IH SCH ×6 (00:24→19:49)
[2017-12-12] MEDS: *HR* Heparin 5,000 UNIT/ML VIAL SQ SCH ×3 (01:11→18:16)
[2017-12-12] MEDS: Insulin LISPRO 300 UNITS/3 ML VIAL SQ SCH ×4 (01:12→20:01)
[2017-12-12 02:10] LABS: Hematocrit 34.7 % (35.3-44.9); Hemoglobin 10.8 g/dL (11.5-15.4); Mean Corpuscular HGB Conc 31.1 g/dL (31.6-35.5); Mean Corpuscular Hemoglobin 30.4 pg (28.0-33.3); Mean Corpuscular Volume 97.7 fL (83.0-100.0); Mean Platelet Volume 10.2 fL (9.4-12.4); Platelet Count 358 K/mcL (140-400); Red Blood Count 3.55 M/mcL (3.82-4.97); Red Cell Distribution Width 16.6 % (11.5-14.5)
[2017-12-12 02:36] LABS: Potassium 3.8 mEq/L (3.5-5.1)
[2017-12-12] MEDS: D5% in 0.45% NACL 1,000 ML IVC SCH (06:38)
--- NOTE | 2017-12-12 07:27 | Internal Med Progress Note ---
<Levi Topete - Last Filed: 12/12/17 15:51> Hospitalist Progress Note - Encounter Date of Encounter: 12/12/17 - Exam Vitals: Temp Pulse Resp BP Pulse Ox 97.5 F L 100 31 117/73 90 12/12/17 12:58 12/12/17 12:58 12/12/17 14:29 12/12/17 12:58 12/12/17 14:29 - Assessment and Plan (1) Respiratory failure Current Visit: Yes Status: Acute (2) Pneumonia Current Visit: Yes Status: Suspected (3) UTI (urinary tract infection) Current Visit: Yes Status: Resolved (4) Sepsis Current Visit: Yes Status: Acute (5) Pancreatitis Current Visit: Yes Status: Acute (6) Coronary artery disease Current Visit: Yes Status: Acute (7) Anxiety Current Visit: Yes Status: Chronic (8) COPD (chronic obstructive pulmonary disease) Current Visit: Yes Status: Chronic (9) Elevated troponin Current Visit: Yes Status: Acute (10) Acute renal failure Current Visit: Yes Status: Acute (11) Hypernatremia Current Visit: Yes Status: Acute - Time Spent with Patient Total time spent is greater than 50% in coordination of care (as documented) at patient's floor/unit and/or counseling patient: Internal Medicine: Result - Labs CBC & Chem 7: 12/12/17 01:59 12/12/17 01:59 Labs: Short CBC 12/12/17 Range/Units 01:59 WBC 16.1 H (4.3-11.1) K/mcL Hgb 10.8 L (11.5-15.4) g/dL Hct 34.7 L (35.3-44.9) % Plt Count 358 (140-400) K/mcL BMP 12/12/17 01:59 Sodium 146 H Potassium 3.8 Chloride 116 H Carbon Dioxide 21 L BUN 36 H Creatinine 2.59 H Glucose 183 H Calcium 8.0 L - ABG Interpretation ABG results: ABG ABG pH 7.31 pH Units (7.32-7.45) L 12/10/17 15:16 ABG pCO2 46 mmHg (35-45) H 12/10/17 15:16 ABG pO2 71 mmHg (85-104) L 12/10/17 15:16 ABG O2 Saturation 92 % (95-98) L 12/10/17 15:16 PT/INR, D-dimer PT 12.2 Seconds (9.4-12.1) H 12/11/17 08:30 - Impressions Impressions Abdomen/Pelvis CT 12/12/17 07:44 IMPRESSION: Large ventral complex abdominal hernia containing multiple loops of bowel. No bowel obstruction is suspected at this time. Inflammatory changes of the pancreas, similar to the prior study. Perivesical fat stranding. Correlation for cystitis is recommended. D/ / Myriam Velazquez Cha, MD / Myriam Velazquez Cha, MD Interpreting Provider: Myriam Velazquez Cha, MD Chest CT 12/12/17 07:44 IMPRESSION: Bibasilar consolidation, greatest of the left lower lobe suspicious for pneumonia. Left pleural effusion. D/ / Myriam Velazquez Cha, MD / Myriam Velazquez Cha, MD Interpreting Provider: Myriam Velazquez Cha, MD Consult Discharge Plan - Plan Referrals: NONE,PCP [Primary Care Provider] - - Attending Attestation I examined this patient and my medical decision-making was reviewed with the Resident Physician on 12/12/17. I agree with the documented findings, disposition and treatment plan as described except to the extent set forth below. Ms Morales is currently admitted for acute pancreatitis and hypoxic resp failure. She remains moderate to high risk due to the potential for worsening clinical status. Ms Morales is more alert today but continues to be hypoxic. Her heart rate and BP are better. No fever or chills. Some dyspnea. Feels hungry and thirsty. Exam alert and interactive. Hypoxic with nonrebreather Mucus membranes dry Heart reg and not tachy Diminished breath sounds R. No rhonchi ABd soft with minimal epigastric discomfort. No edema CT - LLL consolidation and effusion. I/P 1. Hypoxia - bipap 2. LLL consolidation/pneumonia - ? aspiration versus other. Broaden abx Pulm consult tomorrow. Speech eval tomorrow for dysphagia. Further diagnoses and plan as above. <Cb Barclay - Last Filed: 12/12/17 17:00> Hospitalist Progress Note - Encounter Date of Encounter: 12/12/17 Time of Encounter: 08:30 - Subjective Interval History: Ms. Morales is more animated (not agitated-animated) today but at the consequence of not wanting to use bipap and desaturing on hi-flow. She is tolerating the full-face mask version of bipap. She remains thirsty. Plan for swallow eval tomorrow and possible diet change. - Exam Vitals: Temp Pulse Resp BP Pulse Ox 98.2 F 87 20 133/83 93 12/12/17 06:47 12/12/17 06:47 12/12/17 06:47 12/12/17 06:47 12/12/17 06:47 Exam: PHYSICAL EXAM: Head exam: Present: atraumatic, normocephalic Eye exam: Present: conjuntiva pink, sclera anicteric, EOMI Neck exam Present: supple, trachea midline. Absent: lymphadenopathy Respiratory exam: Present: modest resp effort, on full-face mask bipap, normal chest wall excursion, bilateral basilar rales. Absent: accessory muscle use Cardiovascular exam: Present: RRR, +S1, +S2. Absent: diastolic murmur, gallop, rubs, systolic murmur GI/Abdominal exam: Present: normal bowel sounds, soft, no peritoneal signs, midline herniation (chronic), mild tenderness on palpation of hernia - reduceable Extremities exam: Present: warm, radial pulses palpable and symmetrical. Absent : calf tenderness, cyanotic, pedal edema Neurological exam: Present: oriented X3, no focal deficits. Absent: facial droop, speech deficit Skin exam: Present: dry, intact - Assessment and Plan (1) Acute respiratory failure with hypoxia and hypercarbia Current Visit: Yes Status: Acute Assessment and Plan: In setting of acute pancreatitis Underlying COPD/emphasematous changes on CXR CT Chest/abd/pelvis shows bibasilar consolidations, atelectasis L>R (her dependent side) ECHO 65%, CXR shows no pulm edema Patient more agreeable to full-faced bipap, has done well on AVAPs prior days, Plan: continuing bipap, duonebs, steroid, zosyn/levaquin/vanc (gram-/+/atypicals /mrsa/double pseudomonas) Pulmonology has been consulted, appreciate their evaluation (2) Sepsis Current Visit: Yes Status: Acute Assessment and Plan: Sepsis in setting of acute pancreatitis wt ct 16.1 (15.8, 17.7, 20.2) last abg 7.31 MAP in 100s today compared to prior days in 65-70 range Remains tachycardic UOP has been >1 x2 days, creatinine at baseline Abx coverage with Zosyn, Levaquin, Vanc Continue fluid resuscitation, electrolyte repletion (s/p mag and calcium), non- rebreather; plan for swallow eval and possible diet progression tomorrow 12/13 (3) Pancreatitis Current Visit: Yes Status: Acute Assessment and Plan: Acute pancreatitis: lipase downtrending 191 (208, 216, 1624) Negative gallstone workup, denies alcohol, has history of macrobid use plan as above (4) UTI (urinary tract infection) Current Visit: Yes Status: Resolved Assessment and Plan: Patient presents with leukocytosis, hypotension Urinalysis early in hospital course shows turbid urine with pH of 9.0, moderate blood, leukocyte esterase and urine bacteria. There are a few squamous epithelial cells. Urine culture and blood cultures were collected at [facility] Urine Culture has grown Klebsiella - CT abd/pelvis possitlbe cystitis (fat stranding) - abx coverage adequate (5) Coronary artery disease Current Visit: Yes Status: Acute Assessment and Plan: echo this admission shows lvef 65%, ecg without ischemic changes, doubt acs (6) Anxiety Current Visit: Yes Status: Chronic Assessment and Plan: Pt hx of anxiety for which she takes Valium Pt currently not anxious and has been placed on 0.5 mg Ativan to prevent w/ drawal (12/09) Ativan D/C (12/10) (7) COPD (chronic obstructive pulmonary disease) Current Visit: Yes Status: Chronic Assessment and Plan: emphasematous changes on CXR continue duoneb eron, o2 titration (8) Elevated troponin Current Visit: Yes Status: Acute Assessment and Plan: elevated in setting of acute resp failure, likely demand (9) Acute renal failure Current Visit: Yes Status: Acute Assessment and Plan: Now below baseline UOP good >1cc/kg/hr switched from LR to d5 1/2 NS hypotonic for elevating Na, improved today (10) Aneurysm Current Visit: Yes Status: Acute (11) Dysphagia Current Visit: Yes Status: Acute Assessment and Plan: Speech eval Wednesday (12) DVT prophylaxis Current Visit: Yes Status: Acute Assessment and Plan: Has been on Heparin drip in setting of concern for PE Negative LE doppler - Time Spent with Patient Total time spent is greater than 50% in coordination of care (as documented) at patient's floor/unit and/or counseling patient: Internal Medicine: Result - Labs CBC & Chem 7: 12/12/17 01:59 12/12/17 01:59 Labs: Short CBC 12/12/17 Range/Units 01:59 WBC 16.1 H (4.3-11.1) K/mcL Hgb 10.8 L (11.5-15.4) g/dL Hct 34.7 L (35.3-44.9) % Plt Count 358 (140-400) K/mcL BMP 12/12/17 01:59 Sodium 146 H Potassium 3.8 Chloride 116 H Carbon Dioxide 21 L BUN 36 H Creatinine 2.59 H Glucose 183 H Calcium 8.0 L - ABG Interpretation ABG results: ABG ABG pH 7.31 pH Units (7.32-7.45) L 12/10/17 15:16 ABG pCO2 46 mmHg (35-45) H 12/10/17 15:16 ABG pO2 71 mmHg (85-104) L 12/10/17 15:16 ABG O2 Saturation 92 % (95-98) L 12/10/17 15:16 PT/INR, D-dimer PT 12.2 Seconds (9.4-12.1) H 12/11/17 08:30 <Levi Topete - Last Filed: 12/12/17 15:51> (1) Respiratory failure Qualifiers: Chronicity: acute Respiratory failure complication: hypoxia and hypercapnia Qualified Code(s): J96.01 - Acute respiratory failure with hypoxia; J96.02 - Acute respiratory failure with hypercapnia (2) Pneumonia Qualifiers: Pneumonia type: aspiration pneumonia Aspiration pneumonia type: due to regurgitated food Laterality: left Lung location: lower lobe of lung Qualified Code(s): J69.0 - Pneumonitis due to inhalation of food and vomit (3) UTI (urinary tract infection) Qualifiers: Urinary tract infection type: acute cystitis Hematuria presence: with hematuria Qualified Code(s): N30.01 - Acute cystitis with hematuria (4) Sepsis Qualifiers: Sepsis type: sepsis due to unspecified organism Qualified Code(s): A41.9 - Sepsis, unspecified organism (5) Pancreatitis Qualifiers: Chronicity: acute Pancreatitis type: other Acute pancreatitis complication: no infection or necrosis Qualified Code(s): K85.80 - Other acute pancreatitis without necrosis or infection (6) Coronary artery disease Qualifiers: Coronary Disease-Associated Artery/Lesion type: [place] artery [place] vs. transplanted heart: [place] heart Associated angina: without angina Qualified Code(s): I25.10 - Atherosclerotic heart disease of [place] coronary artery without angina pectoris (8) COPD (chronic obstructive pulmonary disease) Qualifiers: COPD type: emphysema Emphysema type: panlobular Qualified Code(s): J43.1 - Panlobular emphysema (10) Acute renal failure Qualifiers: Acute renal failure type: unspecified Qualified Code(s): N17.9 - Acute kidney failure, unspecified <Cb Barclay - Last Filed: 12/12/17 17:00> (2) Sepsis Qualifiers: Sepsis type: sepsis due to unspecified organism Qualified Code(s): A41.9 - Sepsis, unspecified organism (3) Pancreatitis Qualifiers: Chronicity: acute Pancreatitis type: other Acute pancreatitis complication: no infection or necrosis Qualified Code(s): K85.80 - Other acute pancreatitis without necrosis or infection (4) UTI (urinary tract infection) Qualifiers: Urinary tract infection type: acute cystitis Hematuria presence: with hematuria Qualified Code(s): N30.01 - Acute cystitis with hematuria (5) Coronary artery disease Qualifiers: Coronary Disease-Associated Artery/Lesion type: [place] artery [place] vs. transplanted heart: [place] heart Associated angina: without angina Qualified Code(s): I25.10 - Atherosclerotic heart disease of [place] coronary artery without angina pectoris (7) COPD (chronic obstructive pulmonary disease) Qualifiers: COPD type: emphysema Emphysema type: panlobular Qualified Code(s): J43.1 - Panlobular emphysema (9) Acute renal failure Qualifiers: Acute renal failure type: unspecified Qualified Code(s): N17.9 - Acute kidney failure, unspecified
--- NOTE | 2017-12-12 10:26 | Event Note ---
Date of Encounter: 12/12/17 Time of Encounter: 10:25 Nephrology Chart Review Pt's renal function is near if not better than baseline. No new nephrology recommendations today (Wednesday). My colleague Dr. Dougherty will be on-call tomorrow. Thank you.
[2017-12-12] MEDS: Pantoprazole 40 MG VIAL IVP SCH (11:04)
[2017-12-12] MEDS: MethylPREDNISolone 40 MG/ML VIAL IVP SCH (11:05)
[2017-12-12] MEDS: Piperacillin/Tazobactam 3.375 GM in 0.9 % Sodium Chloride Mini Bag 100 ML IVPB SCH (11:07)
[2017-12-12] MEDS ORDERED: Levofloxacin 750 MG/150 ML 750 MG/150 ML BAG IVPB ONE ×2 (13:00→21:00)
[2017-12-12] MEDS ORDERED: *HR* LORazepam 2 MG/ML VIAL IVP ONE ×2 (14:27→23:55)
[2017-12-12] MEDS: Heparin 25,000 UNIT/500 ML D5W 25,000 UNIT/500 ML BAG IVC SCH (14:28)
[2017-12-12 22:24] LABS: Adenovirus Not Detected (Not Detect); Bordetella Pertussis Not Detected (Not Detect); Chlamydophila pneumoniae Not Detected (Not Detect); Coronavirus 229E Not Detected (Not Detect); Coronavirus HKU1 Not Detected (Not Detect); Coronavirus NL63 Not Detected (Not Detect); Coronavirus OC43 Not Detected (Not Detect); Human Metapneumovirus Not Detected (Not Detect); Human Rhinovirus/Enterovirus Not Detected (Not Detect); Influenza A Subtype 2009 H1 Not Detected (Not Detect); Influenza A Untypeable Not Detected (Not Detect); Influenza B Not Detected (Not Detect); Mycoplasma pneumoniae Not Detected (Not Detect); Parainfluenza Virus 1 Not Detected (Not Detect); Parainfluenza Virus 2 Not Detected (Not Detect); Parainfluenza Virus 3 Not Detected (Not Detect); Parainfluenza Virus 4 Not Detected (Not Detect); Respiratory Syncytial Virus Not Detected (Not Detect)
[2017-12-13] MEDS: Ipratropium/Albuterol Neb 3 ML IH SCH ×7 (00:06→22:57)
[2017-12-13] MEDS: *HR* Heparin 5,000 UNIT/ML VIAL SQ SCH ×4 (00:25→23:48)
[2017-12-13] MEDS: Insulin LISPRO 300 UNITS/3 ML VIAL SQ SCH ×4 (00:26→17:31)
[2017-12-13] MEDS: Piperacillin/Tazobactam 3.375 GM in 0.9 % Sodium Chloride Mini Bag 100 ML IVPB SCH ×2 (00:27→08:59)
[2017-12-13] MEDS: D5% in 0.45% NACL 1,000 ML IVC SCH ×2 (05:32→05:33)
[2017-12-13 06:09] LABS: VBG HCO3 22 mEq/L (21-27); VBG PCO2 44 mmHg (41-51); VBG PO2 128 mmHg (25-50)
[2017-12-13 06:21] LABS: Hematocrit 31.7 % (35.3-44.9); Hemoglobin 9.7 g/dL (11.5-15.4); Mean Corpuscular HGB Conc 30.6 g/dL (31.6-35.5); Mean Corpuscular Volume 98.1 fL (83.0-100.0); Mean Platelet Volume 10.6 fL (9.4-12.4); Platelet Count 366 K/mcL (140-400); Red Blood Count 3.23 M/mcL (3.82-4.97); Red Cell Distribution Width 16.2 % (11.5-14.5)
[2017-12-13 06:32] LABS: Calcium 8.4 mg/dL (8.6-10.3); Potassium 4.3 mEq/L (3.5-5.1)
--- NOTE | 2017-12-13 07:28 | Pulmonology Consult Note ---
Date of Encounter: 12/13/17 Time of Encounter: 07:15 Assessment and Plan (1) Acute respiratory failure Current Visit: Yes Status: Acute Patient has acceptable oxygenation and ventilation if the condition worsened we will repeat a blood gas. Patient is on currently on BiPAP will give a break to put her on [place] high flow see the Vapotherm effect will help her so she can participate in incentive spirometry and flutter valve. Patient should be nothing by mouth will hold off IV fluids as she might be fluid overload with a background of diastolic dysfunction patient cannot diuresis now as she recently recovered from sepsis will hold off diuresis for now. The most likely etiology for this severe VQ mismatch is due to pneumonia I do not think pulmonary embolism is contributing to the current picture well stopped the heparin drip. Patient cannot undergo CTA because of her kidney function and patient cannot lie flat for a pulmonary perfusion imaging. To continue bronchodilators and steroids. On broad-spectrum antibiotics for pneumonia and streptococcal pneumonia antigen was positive in urine. We will continue with Vanco Levaquin. Vancomycin is renally dosed Vanco trough is 20. Since patient work of breathing is stable we will hold off ICU transfer for now if patient clinically deteriorated patient will need ICU transfer will have low threshold to transfer to ICU. Qualifiers: Respiratory failure complication: hypoxia Qualified Code(s): J96.01 - Acute respiratory failure with hypoxia (2) COPD (chronic obstructive pulmonary disease) Current Visit: Yes Status: Chronic COPD exacerbation complicated by possible aspiration pneumonia to continue bronchodilators and steroids. Qualifiers: COPD type: emphysema Emphysema type: panlobular Qualified Code(s): J43.1 - Panlobular emphysema (3) Acute kidney injury superimposed on CKD Current Visit: Yes Status: Acute Patient at her baseline renal function will hold of diuresis which will eventually help her hypoxic respiratory failure with since she recovered from subsequent recently we will hold of diuresis for next 24 hours (4) Pneumonia Current Visit: Yes Status: Acute Patient pneumonia most likely due to aspiration with urinary Streptococcus pneumonia is positive to continue vancomycin and Levaquin Vanco trough is a 20 will not feed her unless a formal speech evaluation has been done but patient is not clinically stable to get swallow evaluation today. Qualifiers: Pneumonia type: due to unspecified organism Laterality: bilateral Lung location: lower lobe of lung Qualified Code(s): J18.1 - Lobar pneumonia, unspecified organism History of Present Illness Consult date: 12/13/17 Requesting physician: Levi Topete Reason for consult: COPD, hypoxemia, pneumonia Chief complaint: Abdominal pain. History of present illness: 67-year-old female with past medical history of COPD not oxygen dependent with acute on chronic abdominal pain found to have pancreatitis also has ventral hernia with did not show any signs of intestinal obstruction developed acute respiratory failure found to have bilateral lower lobe pneumonia most likely due to aspiration patient and her caregivers noticed that she chokes on liquids and sometimes solids even her family members attest to that patient denies any unusual cough and sputum production denies any sick contact face that she is more short of breath than usual otherwise she is feeling a lot better when she came in when she presented she was in sepsis most likely due to UTI, pneumonia patient was fluid resuscitated patient hemodynamically became stable but progressively became more hypoxic the CT scan shows bilateral lower lobe consolidation with some more volume loss now central airway obstruction GERD bilateral lower lobe air bronchograms noted. Pulmonary was consult that for this worsening acute hypoxic respiratory failure. She denies any active chest pain, chest tightness denies any palpitation or syncope denies any neuro symptoms denies any active abdominal pain denies any nausea vomiting. Past Med Surg Social Fam HX - Past Medical History Medical history: arthritis, COPD, coronary artery disease, GERD, hyperlipidemia , hypertension, osteoporosis Additional medical history: Anemia. stage 3 CKD. Renal Mass Psychiatric history: anxiety - Past Surgical History Additional surgical history: left nephrectomy - Social History Smoking Status: Current every day smoker Alcohol use: none Drug use: none Medications and Allergies Albuterol Sulfate [Ventolin Hfa] 2 puff IH Q6H PRN 10/07/17 [History] Aspirin [Ecotrin] 325 mg PO DAILY 10/07/17 [History] Furosemide [Lasix] 20 mg PO DAILY 10/07/17 [History] Isosorbide MONOnitrate (24 HR) [Imdur] 60 mg PO DAILY 10/07/17 [History] Montelukast Sodium [Singulair] 10 mg PO HS 10/07/17 [History] Omeprazole [PriLOSEC] 40 mg PO DAILY 10/07/17 [History] diazePAM [Valium] 5 mg PO TID PRN 10/07/17 [History] Diltiazem HCl [Cardizem Cd] 360 mg PO DAILY 12/09/17 [History] 3 Allergy/AdvReac Type Severity Reaction Status Date / Time iodine AdvReac See Verified 10/07/17 14:34 Comments All Systems: The remainder of the systems were reviewed and are negative Physical Examination Vital Signs: Vital Signs, Last 4 Hours Temp Pulse Resp BP Pulse Ox 12/13/17 05:10 97.3 F L 58 18 119/67 98 12/13/17 04:55 27 97 General appearance: appears uncomfortable Effort: mildly labored Auscultation: bilateral: diminished breath sounds, rales (Scattered) Gastrointestinal: other (Ventral hernia noted) Extremities: edema Results - Laboratory Findings CBC and BMP: 12/13/17 05:54 12/13/17 05:54 ABG ABG pH 7.31 pH Units (7.32-7.45) L 12/10/17 15:16 ABG pCO2 46 mmHg (35-45) H 12/10/17 15:16 ABG pO2 71 mmHg (85-104) L 12/10/17 15:16 ABG O2 Saturation 92 % (95-98) L 12/10/17 15:16 PT/INR, D-dimer PT 12.2 Seconds (9.4-12.1) H 12/11/17 08:30 Abnormal lab findings: Abnormal lab results WBC 15.1 K/mcL (4.3-11.1) H 12/13/17 05:54 RBC 3.23 M/mcL (3.82-4.97) L 12/13/17 05:54 Hgb 9.7 g/dL (11.5-15.4) L 12/13/17 05:54 Hct 31.7 % (35.3-44.9) L 12/13/17 05:54 MCHC 30.6 g/dL (31.6-35.5) L 12/13/17 05:54 RDW 16.2 % (11.5-14.5) H 12/13/17 05:54 Neutrophils # 15.8 K/mcL (1.6-8.9) H 12/09/17 04:59 PT 12.2 Seconds (9.4-12.1) H 12/11/17 08:30 ABG pH 7.31 pH Units (7.32-7.45) L 12/10/17 15:16 ABG pCO2 46 mmHg (35-45) H 12/10/17 15:16 ABG pO2 71 mmHg (85-104) L 12/10/17 15:16 ABG O2 Saturation 92 % (95-98) L 12/10/17 15:16 ABG Base Excess -3 mEq/L (-2 to 3) L 12/10/17 15:16 VBG pH 7.30 pH Units (7.32-7.42) L 12/13/17 06:06 VBG pO2 128 mmHg (25-50) H 12/13/17 06:06 Chloride 117 mEq/L (98-107) H 12/13/17 05:54 Carbon Dioxide 19 mEq/L (23-29) L 12/13/17 05:54 BUN 35 mg/dL (8-23) H 12/13/17 05:54 Creatinine 2.27 mg/dL (0.60-1.20) H 12/13/17 05:54 Est GFR ( Amer) 26 (> 60) L 12/13/17 05:54 Est GFR (Non-Af Amer) 21 (> 60) L 12/13/17 05:54 Glucose 152 mg/dL (70-105) H 12/13/17 05:54 POC Glucose 141 mg/dL (70-99) H 12/13/17 06:03 Calculated Osmolality 307 (280-300) H 12/13/17 05:54 Uric Acid 8.2 mg/dL (2.3-7.6) H 12/09/17 15:15 Calcium 8.4 mg/dL (8.6-10.3) L 12/13/17 05:54 Total Bilirubin 0.2 mg/dL (0.3-1.0) L 12/10/17 04:34 AST 6 Units/L (13-39) L 12/10/17 04:34 ALT 3 Units/L (7-52) L 12/10/17 04:34 Alkaline Phosphatase 109 Units/L (34-104) H 12/10/17 04:34 Creatine Kinase 14 Units/L (30-223) L 12/09/17 15:15 Troponin I 0.11 ng/mL (< 0.04) H* 12/10/17 15:21 Serum Total Protein 5.9 g/dL (6.4-8.9) L 12/10/17 04:34 Albumin 1.9 g/dL (3.5-5.7) L 12/10/17 04:34 Globulin 4.0 g/dL (2.4-3.5) H 12/10/17 04:34 Albumin/Globulin Ratio 0.5 (1.1-2.2) L 12/10/17 04:34 Triglycerides 259 mg/dL (< 150) H 12/09/17 04:59 Lipase 180 Units/L (11-82) H 12/13/17 05:54 Urine Clarity Turbid (Clear) A 12/09/17 19:10 Ur Specific [place] 1.006 (1.010-1.025) L 12/09/17 19:10 Urine Protein 100 mg/dL (Neg-Trace) H 12/09/17 19:10 Urine Blood Moderate (Negative) H 12/09/17 19:10 Ur Leukocyte Esterase Large (Negative) H 12/09/17 19:10 Urine Microscopic RBC 5-15 per hpf (0-3) H 12/09/17 19:10 Urine Microscopic WBC TNTC per hpf (0-3) H 12/09/17 19:10 Ur Squamous Epith Cells Moderate per lpf (None-Few) H 12/09/17 19:10 Protein/Creatinin Ratio 7.09 mg/mg (0.00-0.20) H 12/09/17 19:10 Urine Total Protein 163 mg/dL (1-14) H 12/09/17 19:10 Vancomycin Trough 20 mcg/mL (5-10) H 12/13/17 05:54 - Microbiology Findings Microbiology Findings: Microbiology, Last 48 Hours 12/12/17 22:15 Legionella Antigen - Final Urine,Catheterized Streptococcus pneumoniae Antigen (M - Final - Clinical Findings Intake & Output: Intake & Output 12/12/17 12/12/17 12/13/17 15:59 23:59 07:59 Intake Total 333 / 333 900 / 900 198 / 198 Output Total 200 / 200 250 / 250 Balance 333 / 333 700 / 700 -52 / -52 Weight 58.7 kg Consult Discharge Plan - Plan Referrals: NONE,PCP [Primary Care Provider] -
[2017-12-13] MEDS ORDERED: Aminoglycoside Consult 1 EACH MC ONE (08:13)
[2017-12-13] MEDS: MethylPREDNISolone 40 MG/ML VIAL IVP SCH (08:58)
[2017-12-13] MEDS: Pantoprazole 40 MG VIAL IVP SCH (08:58)
[2017-12-13] MEDS: Heparin 25,000 UNIT/500 ML D5W 25,000 UNIT/500 ML BAG IVC SCH (09:07)
--- NOTE | 2017-12-13 09:46 | Internal Med Progress Note ---
<Devonte Ramos S - Last Filed: 12/13/17 16:38> Hospitalist Progress Note - Encounter Date of Encounter: 12/13/17 Time of Encounter: 08:30 - Subjective Interval History: Pt was seen and evaluated at bedside. Pt denies hemoptysis, hematochezia, abdominal pain, or any further episodes of diarrhea. Pt latest Chest CT (12/12) found bibasilar consolidation and LLL pneumonia. Pt is now being treated for S pneumo with Levaquin. There is also a left pleural effusion. Pt is on a Blayne 40 L with FiO2 of 70%. Speech eval reports pt can tolerate soft foods and liquids so pt is being transitioned to this diet. Currently waiting on blood and sputum cx results. - Exam Vitals: Temp Pulse Resp BP Pulse Ox 97.1 F L 107 24 134/88 96 12/13/17 07:32 12/13/17 07:32 12/13/17 07:59 12/13/17 07:32 12/13/17 07:59 Exam: Head: Normocephalic Lungs: Some wheezing heard CV: RRR. No murmurs rubs or gallops. Abdomen: Pain with deep palpation MSK: Upper and Lower extremities 5/5 strength - Assessment and Plan (1) Acute respiratory failure with hypoxia and hypercarbia Current Visit: Yes Status: Acute Assessment and Plan: In setting of acute pancreatitis Underlying COPD/emphasematous changes on CXR CT Chest/abd/pelvis shows bibasilar consolidations, atelectasis L>R (her dependent side) ECHO 65%, CXR shows no pulm edema Patient more agreeable to full-faced bipap, has done well on AVAPs prior days, Plan: continuing duonebs, steroid, levaquin Pt currently on 70% O2 on [place]ne. Pt tolerating well. Pulmonology has been consulted and pt should be evaluated today (2) Sepsis Current Visit: Yes Status: Acute Assessment and Plan: Sepsis in setting of acute pancreatitis. Pt meets criteria of leukocytosis, tachycardia, tachypnea, and hypotension. D-Dimer at admission 1923 (H) wt ct 15.1 (16.1, 15.8, 17.7, 20.2) VBG today (pH 7.30 L, pO2 128 H) MAP 119 today (in 60s-70s at admission) Lactic acid measurements: 0.8, 1.0 Remains tachycardic UOP has been >1 x2 days, creatinine at baseline for pt Abx coverage with Levaquin Continue fluid resuscitation, electrolyte repletion (s/p mag and calcium), non- rebreather; Consult for swallowing dysfxn and possible introduction of food today found pt can tolerate soft foods and liquids (3) Pancreatitis Current Visit: Yes Status: Acute Assessment and Plan: Pt had worsening abdominal pain for 2 weeks prior to presentation CT abdomen/pelvis found Acute pancreatitis. GB/Liver WNL with no ductal dilation LFTs and T-ara WNL lipase downtrending 191 (208, 216, 1624) TG levels 259 (H) at admission Pt denies alcohol use or trauma, has history of macrobid use. Zofran prn nausea plan as above (4) Acute renal failure Current Visit: Yes Status: Acute Assessment and Plan: Pt now below baseline with SCr 2.27 (3.38 at admission) UOP good >1cc/kg/hr switched from LR to d5 1/2 NS hypotonic to elevate Na. Na WNL at 143 (5) Elevated troponin Current Visit: Yes Status: Acute Assessment and Plan: elevated in setting of acute respiratory failure Pts levels: 0.15, 0.16, 0.16, 0.11 EKG finds: sinus tach w/out ST elevation or depression Pt denies any chest pain Echocardiogram WNL found LVEF 65% (6) COPD (chronic obstructive pulmonary disease) Current Visit: Yes Status: Chronic Assessment and Plan: emphasematous changes on CXR continue duoneb eron, o2 titration (7) Coronary artery disease Current Visit: Yes Status: Acute Assessment and Plan: Pt has hx of CAD and is taking Aspirin and Metoprolol at home to manage No current complaint of CP echo this admission shows LV EF 65%, ecg without ischemic changes Pt given Lopressor prn for HR>120 (8) UTI (urinary tract infection) Current Visit: Yes Status: Resolved Assessment and Plan: Patient presents with leukocytosis, hypotension Urinalysis early in hospital course shows turbid urine with pH of 9.0, moderate blood, leukocyte esterase and urine bacteria. There are a few squamous epithelial cells. Urine culture and blood cultures were collected at [facility] Urine Culture has grown Klebsiella - CT abd/pelvis possitlbe cystitis (fat stranding) - abx coverage adequate (9) Aneurysm Current Visit: Yes Status: Acute Assessment and Plan: Abdomen CT incidentally found infrarenal aortic aneurysm measuring 2.9cm. As per guidelines, f/u with PCP every 5 yrs to manage (10) Anxiety Current Visit: Yes Status: Chronic Assessment and Plan: Pt hx of anxiety for which she takes Valium Pt currently not anxious and has been placed on 0.5 mg Ativan to prevent w/ drawal (12/09) Ativan D/C (12/10) (11) DVT prophylaxis Current Visit: Yes Status: Acute Assessment and Plan: Has been on Heparin drip in setting of concern for PE Negative LE Doppler (12) Dysphagia Current Visit: Yes Status: Acute Assessment and Plan: Speech eval today cleared pt for liquids and soft foods. Plan to change pt diet off NPO - Time Spent with Patient Total time spent is greater than 50% in coordination of care (as documented) at patient's floor/unit and/or counseling patient: Greater than 35 minutes Plan of Care Discussed with: patient Internal Medicine: Result - Labs CBC & Chem 7: 12/13/17 05:54 12/13/17 05:54 Labs: Short CBC 12/13/17 Range/Units 05:54 WBC 15.1 H (4.3-11.1) K/mcL Hgb 9.7 L (11.5-15.4) g/dL Hct 31.7 L (35.3-44.9) % Plt Count 366 (140-400) K/mcL BMP 12/13/17 05:54 Sodium 143 Potassium 4.3 Chloride 117 H Carbon Dioxide 19 L BUN 35 H Creatinine 2.27 H Glucose 152 H Calcium 8.4 L - ABG Interpretation ABG results: ABG ABG pH 7.31 pH Units (7.32-7.45) L 12/10/17 15:16 ABG pCO2 46 mmHg (35-45) H 12/10/17 15:16 ABG pO2 71 mmHg (85-104) L 12/10/17 15:16 ABG O2 Saturation 92 % (95-98) L 12/10/17 15:16 PT/INR, D-dimer PT 12.2 Seconds (9.4-12.1) H 12/11/17 08:30 - Impressions Impressions Abdomen/Pelvis CT 12/12/17 07:44 IMPRESSION: Large ventral complex abdominal hernia containing multiple loops of bowel. No bowel obstruction is suspected at this time. Inflammatory changes of the pancreas, similar to the prior study. Perivesical fat stranding. Correlation for cystitis is recommended. D/ / Myriam Velazquez Cha, MD / Myriam Velazquez Cha, MD Interpreting Provider: Myriam Velazquez Cha, MD Chest CT 12/12/17 07:44 IMPRESSION: Bibasilar consolidation, greatest of the left lower lobe suspicious for pneumonia. Left pleural effusion. D/ / Myriam Velazquez Cha, MD / Myriam Velazquez Cha, MD Interpreting Provider: Myriam Velazquez Cha, MD Consult Discharge Plan - Plan Referrals: NONE,PCP [Primary Care Provider] - <Levi Topete - Last Filed: 12/13/17 19:10> Hospitalist Progress Note - Encounter Date of Encounter: 12/13/17 - Exam Vitals: Temp Pulse Resp BP Pulse Ox 97.9 F 71 25 129/84 90 12/13/17 11:08 12/13/17 15:00 12/13/17 15:43 12/13/17 15:00 12/13/17 15:43 - Assessment and Plan (1) Respiratory failure Current Visit: Yes Status: Acute (2) Pneumonia Current Visit: Yes Status: Acute (3) UTI (urinary tract infection) Current Visit: Yes Status: Resolved (4) Sepsis Current Visit: Yes Status: Acute (5) Pancreatitis Current Visit: Yes Status: Acute (6) Coronary artery disease Current Visit: Yes Status: Acute (7) Anxiety Current Visit: Yes Status: Chronic (8) COPD (chronic obstructive pulmonary disease) Current Visit: Yes Status: Chronic (9) Elevated troponin Current Visit: Yes Status: Acute (10) Acute renal failure Current Visit: Yes Status: Acute (11) Hypernatremia Current Visit: Yes Status: Acute - Time Spent with Patient Total time spent is greater than 50% in coordination of care (as documented) at patient's floor/unit and/or counseling patient: Internal Medicine: Result - Labs CBC & Chem 7: 12/13/17 05:54 12/13/17 05:54 Labs: Short CBC 12/13/17 Range/Units 05:54 WBC 15.1 H (4.3-11.1) K/mcL Hgb 9.7 L (11.5-15.4) g/dL Hct 31.7 L (35.3-44.9) % Plt Count 366 (140-400) K/mcL BMP 12/13/17 05:54 Sodium 143 Potassium 4.3 Chloride 117 H Carbon Dioxide 19 L BUN 35 H Creatinine 2.27 H Glucose 152 H Calcium 8.4 L - ABG Interpretation ABG results: ABG ABG pH 7.31 pH Units (7.32-7.45) L 12/10/17 15:16 ABG pCO2 46 mmHg (35-45) H 12/10/17 15:16 ABG pO2 71 mmHg (85-104) L 12/10/17 15:16 ABG O2 Saturation 92 % (95-98) L 12/10/17 15:16 PT/INR, D-dimer PT 12.2 Seconds (9.4-12.1) H 12/11/17 08:30 - Attending Attestation The history, physical exam, and medical decision making was performed by the medical student either while I was physically present and actively involved or I personally re-performed the exam and medical decision making. I have verified the accuracy of the medical student's documentation with regards to the history, physical exam findings, and medical decision making on 12/13/17. Ms Morales is currently admitted for resp failure and pneumonia. She remains moderate to high risk due to potential for worsening clinical status. Ms Morales is breathing better overall. No fever or chills. Tolerating current treatments. Pulm to see today. Exam alert Comfortable at this time. Mucus membranes dry Heart distant No wheeze abd soft No edema I/P 1. Pneumococcal pneumonia -on IV abx. 2. Resp failure Further diagnoses and plan as above <Devonte Ramos - Last Filed: 12/13/17 16:38> (2) Sepsis Qualifiers: Sepsis type: sepsis due to unspecified organism Qualified Code(s): A41.9 - Sepsis, unspecified organism (4) Acute renal failure Qualifiers: Acute renal failure type: unspecified Qualified Code(s): N17.9 - Acute kidney failure, unspecified (6) COPD (chronic obstructive pulmonary disease) Qualifiers: COPD type: emphysema Emphysema type: panlobular Qualified Code(s): J43.1 - Panlobular emphysema (7) Coronary artery disease Qualifiers: Coronary Disease-Associated Artery/Lesion type: [place] artery [place] vs. transplanted heart: [place] heart Associated angina: without angina Qualified Code(s): I25.10 - Atherosclerotic heart disease of [place] coronary artery without angina pectoris (8) UTI (urinary tract infection) Qualifiers: Urinary tract infection type: acute cystitis Hematuria presence: with hematuria Qualified Code(s): N30.01 - Acute cystitis with hematuria <Levi Topete - Last Filed: 12/13/17 19:10> (1) Respiratory failure Qualifiers: Chronicity: acute Respiratory failure complication: hypoxia and hypercapnia Qualified Code(s): J96.01 - Acute respiratory failure with hypoxia; J96.02 - Acute respiratory failure with hypercapnia (2) Pneumonia Qualifiers: Pneumonia type: due to Pneumococcus Laterality: bilateral Lung location: lower lobe of lung Qualified Code(s): J13 - Pneumonia due to Streptococcus pneumoniae (3) UTI (urinary tract infection) Qualifiers: Urinary tract infection type: acute cystitis Hematuria presence: with hematuria Qualified Code(s): N30.01 - Acute cystitis with hematuria (4) Sepsis Qualifiers: Sepsis type: sepsis due to unspecified organism Qualified Code(s): A41.9 - Sepsis, unspecified organism (5) Pancreatitis Qualifiers: Chronicity: acute Pancreatitis type: other Acute pancreatitis complication: no infection or necrosis Qualified Code(s): K85.80 - Other acute pancreatitis without necrosis or infection (6) Coronary artery disease Qualifiers: Coronary Disease-Associated Artery/Lesion type: [place] artery [place] vs. transplanted heart: [place] heart Associated angina: without angina Qualified Code(s): I25.10 - Atherosclerotic heart disease of [place] coronary artery without angina pectoris (8) COPD (chronic obstructive pulmonary disease) Qualifiers: COPD type: emphysema Emphysema type: panlobular Qualified Code(s): J43.1 - Panlobular emphysema (10) Acute renal failure Qualifiers: Acute renal failure type: unspecified Qualified Code(s): N17.9 - Acute kidney failure, unspecified
--- NOTE | 2017-12-13 17:33 | Nephrology Progress Note ---
Date of Encounter: 12/13/17 Time of Encounter: 13:00 - Assessment and Plan (1) CKD (chronic kidney disease) stage 4, GFR 15-29 ml/min Current Visit: Yes Status: Chronic SCr noted improved at 2.27, GFR 21 which is better than baseline UOP documented at 525cc in the past 24hrs Can stop IVF if concerns for resp. distress worsen Continue to avoid nephrotoxins if possible (2) Sepsis Current Visit: Yes Status: Acute Per primary. Abx on board Qualifiers: Sepsis type: sepsis due to unspecified organism Qualified Code(s): A41.9 - Sepsis, unspecified organism (3) Pancreatitis Current Visit: Yes Status: Acute Per primary. Advance po as tolerated Qualifiers: Chronicity: acute Acute pancreatitis complication: no infection or necrosis Qualified Code(s): K85.90 - Acute pancreatitis without necrosis or infection, unspecified (4) History of nephrectomy Current Visit: Yes Status: Chronic (5) Renal cyst, acquired, right Current Visit: Yes Status: Acute (6) Hypernatremia Current Visit: Yes Status: Acute Sodium improved at 143, continue free water (7) Hypomagnesemia Current Visit: Yes Status: Acute Subjective Principal diagnosis: CKD Interval history: Interim noted, pt seen and examined with daughter at bedside with complaints of back pain. Wants to go home soon. BiPAP noted on and appears comfortable Objective - Vital Signs Vital signs: Vital Signs Temp Pulse Resp BP Pulse Ox 12/13/17 15:43 25 90 12/13/17 15:00 71 129/84 90 12/13/17 12:43 83 12/13/17 11:08 97.9 F 95 18 123/78 87 12/13/17 10:55 18 90 12/13/17 07:59 24 96 12/13/17 07:32 97.1 F L 107 18 134/88 95 12/13/17 05:10 97.3 F L 58 18 119/67 98 12/13/17 04:55 27 97 12/13/17 00:07 31 117/79 88 12/12/17 23:58 97.6 F 91 18 117/79 92 12/12/17 19:50 28 130/88 97 12/12/17 19:12 98.0 F 68 18 130/88 99 Intake and Output 12/13/17 12/13/17 12/13/17 07:59 15:59 23:59 Intake Total 298 / 298 1452 / 1452 Output Total 250 / 250 550 / 550 Balance 48 / 48 902 / 902 Intake: IV Fluids 298 / 298 1212 / 1212 D5% And 0.45% Nacl 1000 Ml Bag 528 / 528 1,000 ML @ 75 mls/hr IVC . [id number] [facility] Rx#:[id number] Heparin 25,000 UNIT/500 ML D5W 198 / 198 284 / 284 25,000 unit In 500 ml @ 14 UNIT /KG/HR 17.836 mls/hr IVC .Q24H [facility] Rx#:[id number] Levaquin Premix 750mg/150 mL 150 / 150 750 mg In 150 ml @ 100 mls/hr IVPB ONCE ONE Rx#:[id number] Zosyn 3.375 GM In 0.9 % Sodium 100 / 100 Chloride (Mini-Bag +) 100 ML @ 25 mls/hr IVPB Q12H [facility] Rx#: [id number] Oral 0 / 0 240 / 240 Output: Urine 300 / 300 Catheter 250 / 250 250 / 250 Other: Meal Lunch Percent of Meal Consumed 50% Stool Size Small Stool Consistency liquid Stool Color Brown Blood Glucose* 141 187 184 - General Appearance General appearance: Present: chronically ill (NAD) EENT: Present: ATNC, mucous membranes moist Neck: Present: no JVD, supple Additional Comments: good areation ant bilat Cardiology: Present: no edema, normal S1, normal S2 Gastrointestinal: Present: no tenderness, no guarding Integumentary: Present: warm and dry Neurologic: Present: no focal deficit Musculoskeletal: Present: no deformities Psychiatric: Present: mood/affect appropriate - Lab 12/16/17 04:25 12/16/17 04:25 Most recent lab results ABG pH 7.31 pH Units (7.32-7.45) L 12/10/17 15:16 ABG pCO2 46 mmHg (35-45) H 12/10/17 15:16 ABG pO2 71 mmHg (85-104) L 12/10/17 15:16 ABG HCO3 23 mEq/L (21-27) 12/10/17 15:16 ABG O2 Saturation 92 % (95-98) L 12/10/17 15:16 Calcium 8.4 mg/dL (8.6-10.3) L 12/13/17 05:54 Phosphorus 3.3 mg/dL (2.7-4.5) 12/11/17 04:43 Magnesium 2.4 mg/dL (1.6-2.6) 12/11/17 04:43 Urine Creatinine 23 mg/dL 12/09/17 19:10 Urine Sodium 68.7 mEq/L 12/09/17 19:10 Urine Total Protein 163 mg/dL (1-14) H 12/09/17 19:10 Consult Discharge Plan - Plan Referrals: NONE,PCP [Primary Care Provider] -
[2017-12-14] MEDS: Insulin LISPRO 300 UNITS/3 ML VIAL SQ SCH ×5 (00:37→21:00)
[2017-12-14] MEDS: Ipratropium/Albuterol Neb 3 ML IH SCH ×5 (04:41→19:52)
[2017-12-14] MEDS ORDERED: Levofloxacin 500 MG/100 ML 500 MG/100 ML BAG IVPB SCH (09:00)
[2017-12-14] MEDS ORDERED: Furosemide 80 MG in 0.9 % Sodium Chloride 50 ML IVPB ONE (09:08)
--- NOTE | 2017-12-14 09:32 | Internal Med Progress Note ---
<Devonte Ramos - Last Filed: 12/14/17 13:37> Hospitalist Progress Note - Encounter Date of Encounter: 12/14/17 Time of Encounter: 09:00 - Subjective Interval History: Pt was seen and evaluated at bedside. Pt appears to be fatigued but is A&Ox3. Pt has begun to experience episodes of diarrhea, although this could be due to the reintroduction of fluids into diet. Since reintroduction yesterday pt has had 5-6 episodes of watery diarrhea. Pt denies abdominal pain except at hernia sites, despite reintroduction of diet and pt existing dx of acute pancreatitis. Pt denies N/V and CP. Lipase continues to dt at 180 (1624 at admission). Pt receives regular consults with pulm and nephrology. Pt urine output has been WNL at 525cc/24 hours. Pt was unable to tolerate Blayne FiO2 80% and is bipap dependent (FiO2 80%). Pt continues to receive Albuterol/Ipratropium and steroids to assist respiration. Pt was unable to undergo incentive spirometry testing yesterday (12/13). Pt continues to receive Levaquin for Strep pneumo LLL pneumonia. Pt is transitioning to pureed diet. Blood and sputum Cx pending. Stool cx taken and is C diff negative. Supplemented low potassium level (2.9). Repeat CXR to monitor pleural effusions today found worsening in the right base and mild improvement in the left. B/L effusions still present. . Pt diuresed with Furosemide (80 IV). Pt is currently back on Blayne FiO2 80% with an O2Sat of 83%. Pt has mentioned she does not wish to return to bipap. Pt code status is now DNR CCA DNI - Exam Vitals: Temp Pulse Resp BP Pulse Ox 97.9 F 99 28 97/49 97 12/14/17 07:00 12/14/17 07:00 12/14/17 08:04 12/14/17 07:00 12/14/17 08:04 Exam: Head: Normocephalic Skin: Cyanosis observed around the lips Lungs: Some wheezing heard CV: RRR. No murmurs rubs or gallops. Abdomen: Pain with deep palpation at sites of hernias. Bowel sounds in all 4 quadrants. MSK: Upper Extremities 4/5 strength - Assessment and Plan (1) Acute respiratory failure with hypoxia and hypercarbia Current Visit: Yes Status: Acute Assessment and Plan: In setting of acute pancreatitis Underlying COPD/emphasematous changes on CXR CT Chest/abd/pelvis shows bibasilar consolidations, atelectasis L>R (her dependent side) ECHO 65%, CXR shows no pulm edema Patient more agreeable to full-faced bipap, has done well on AVAPs prior days, Plan: continuing duonebs, steroid, levaquin Pt used bipap overnight with FiO2 80% and had O2 Sat 97% Pt is currently refusing the bipap and has Blayne FiO2 80% in with an O2Sat of 83%. Pt does not wish to return to bipap. Repeat CXR ordered (12/14) Regular consults with pulmonology (2) Sepsis Current Visit: Yes Status: Acute Assessment and Plan: Sepsis in setting of acute pancreatitis. Pt meets criteria of leukocytosis, tachycardia, tachypnea, and hypotension. D-Dimer at admission 1923 (H) wt ct downtrending 14.8 (15.1, 16.1, 15.8, 17.7, 20.2) Last VBG (12/13) (pH 7.30 L, pO2 128 H) MAP 81 today (in 60s-70s at admission) Lactic acid measurements: 0.8, 1.0 Pt remains tachycardic Urine Output has been >1cc/kg/hr Creatinine levels below pt baseline. Latest measurement 1.99. Abx coverage with Levaquin electrolyte repletion (s/p mag and calcium) (3) Pneumonia Current Visit: Yes Status: Acute Assessment and Plan: LLL pneumonia with identified organism S pneumoniae (12/12) Pt on day 3 of Abx therapy with Levaquin (4) Pancreatitis Current Visit: Yes Status: Acute Assessment and Plan: Pt had worsening abdominal pain for 2 weeks prior to presentation CT abdomen/pelvis found Acute pancreatitis. GB/Liver WNL with no ductal dilation LFTs and T-ara WNL lipase downtrending at 180 (1624 at admission) TG levels 259 (H) at admission Pt denies alcohol use or trauma, has history of macrobid use. Zofran prn nausea Pt recently reintroduced fluids into diet (12/13) and has experienced no abdominal pain since Pt currently on pureed diet (5) Acute renal failure Current Visit: Yes Status: Acute Assessment and Plan: Pt now below baseline with SCr 2.27 (3.38 at admission) UOP good >1cc/kg/hr and over last 24 hrs pt produced 525 cc switched from LR to d5 1/2 NS hypotonic to elevate Na. Na WNL at 143 Nephrology consult placed; awaiting recommendations (6) Elevated troponin Current Visit: Yes Status: Acute Assessment and Plan: Elevated in setting of acute respiratory failure; possibly secondary to demand ischemia Pts levels: 0.15, 0.16, 0.16, 0.11 EKG finds: sinus tach w/out ST elevation or depression Pt denies any chest pain Echocardiogram WNL found LVEF 65% (7) COPD (chronic obstructive pulmonary disease) Current Visit: Yes Status: Chronic Assessment and Plan: CXR shows emphysematous changes continue duoneb eron, o2 titration Pt currently on Blayne FiO2 80% (8) Coronary artery disease Current Visit: Yes Status: Acute Assessment and Plan: Pt has hx of CAD and is taking Aspirin and Metoprolol at home to manage No current complaint of CP (9) UTI (urinary tract infection) Current Visit: Yes Status: Resolved Assessment and Plan: Patient presents with leukocytosis, hypotension Urinalysis early in hospital course shows turbid urine with pH of 9.0, moderate blood, leukocyte esterase and urine bacteria. Urine culture and blood cultures were collected at [facility] Urine Culture has grown Klebsiella - CT abd/pelvis possitlbe cystitis (fat stranding) Abx coverage with Levaquin (10) Aneurysm Current Visit: Yes Status: Acute Assessment and Plan: Abdomen CT incidentally found infrarenal aortic aneurysm measuring 2.9cm. As per guidelines, f/u with PCP every 5 yrs to manage (11) Anxiety Current Visit: Yes Status: Chronic Assessment and Plan: Pt hx of anxiety for which she takes Valium Pt currently not anxious and has been placed on 0.5 mg Ativan to prevent w/ drawal (12/09) Ativan D/C (12/10) (12) DVT prophylaxis Current Visit: Yes Status: Acute Assessment and Plan: Negative LE Doppler Heparin Drip D/C, imaging not concerning for PE (12/13) Currently on SubQ Heparin - Time Spent with Patient Total time spent is greater than 50% in coordination of care (as documented) at patient's floor/unit and/or counseling patient: Internal Medicine: Result - Labs CBC & Chem 7: 12/14/17 10:27 12/14/17 10:27 - ABG Interpretation ABG results: ABG ABG pH 7.31 pH Units (7.32-7.45) L 12/10/17 15:16 ABG pCO2 46 mmHg (35-45) H 12/10/17 15:16 ABG pO2 71 mmHg (85-104) L 12/10/17 15:16 ABG O2 Saturation 92 % (95-98) L 12/10/17 15:16 PT/INR, D-dimer PT 12.2 Seconds (9.4-12.1) H 12/11/17 08:30 Consult Discharge Plan - Plan Referrals: NONE,PCP [Primary Care Provider] - <Fili Ulloa - Last Filed: 12/14/17 16:18> Hospitalist Progress Note - Encounter Date of Encounter: 12/14/17 - Exam Vitals: Temp Pulse Resp BP Pulse Ox 98.3 F 118 16 108/86 90 12/14/17 15:52 12/14/17 15:52 12/14/17 15:52 12/14/17 15:52 12/14/17 15:52 - Assessment and Plan (1) Sepsis Current Visit: Yes Status: Acute (2) Pancreatitis Current Visit: Yes Status: Acute (3) UTI (urinary tract infection) Current Visit: Yes Status: Resolved (4) Coronary artery disease Current Visit: Yes Status: Acute (5) Anxiety Current Visit: Yes Status: Chronic (6) COPD (chronic obstructive pulmonary disease) Current Visit: Yes Status: Chronic (7) Elevated troponin Current Visit: Yes Status: Acute (8) Acute renal failure Current Visit: Yes Status: Acute (9) Hypernatremia Current Visit: Yes Status: Acute (10) Respiratory failure Current Visit: Yes Status: Acute (11) Pneumonia Current Visit: Yes Status: Acute - Time Spent with Patient Total time spent is greater than 50% in coordination of care (as documented) at patient's floor/unit and/or counseling patient: Internal Medicine: Result - Labs CBC & Chem 7: 12/14/17 10:27 12/14/17 10:27 Labs: Short CBC 12/14/17 Range/Units 10:27 WBC 14.8 H (4.3-11.1) K/mcL Hgb 10.7 L (11.5-15.4) g/dL Hct 34.3 L (35.3-44.9) % Plt Count 371 (140-400) K/mcL Neutrophils # 12.3 H (1.6-8.9) K/mcL BMP 12/14/17 10:27 Sodium 144 Potassium 2.9 L Chloride 114 H Carbon Dioxide 22 L BUN 26 H Creatinine 1.99 H Glucose 158 H Calcium 8.2 L - ABG Interpretation ABG results: ABG ABG pH 7.31 pH Units (7.32-7.45) L 12/10/17 15:16 ABG pCO2 46 mmHg (35-45) H 12/10/17 15:16 ABG pO2 71 mmHg (85-104) L 12/10/17 15:16 ABG O2 Saturation 92 % (95-98) L 12/10/17 15:16 PT/INR, D-dimer PT 12.2 Seconds (9.4-12.1) H 12/11/17 08:30 - Impressions Impressions Chest X-Ray 12/14/17 10:14 IMPRESSION: Bibasilar opacities compatible with bilateral pleural effusions and associated atelectasis or infiltrates, right somewhat worse than left. Findings appear improved on the left but worsened on the right from recent CT chest 12/12/2017. D/ / 12/14/2017 10:44:27 Reji Burris MD / Roxanna Bowie Interpreting Provider: Reji Burris MD - Attending Attestation The history, physical exam, and medical decision making was performed by the medical student either while I was physically present and actively involved or I personally re-performed the exam and medical decision making. I have verified the accuracy of the medical student's documentation with regards to the history, physical exam findings, and medical decision making on 12/13/17. She remains dyspneic but is improved symptomwise. Refusing to wear Bipap. States she would not want inutbation. she understands that if her breahting worsens that "I will " without aggressive treatment such as Bipap. I discussed the case with Pulm Med. Will try Lasix, as she has received IVF initially and may be in mild Diastolic CHF Pt otherwise continus on abx for PNA. Currently day #7 abx, currently Levaquin renally dosed. Renal fxn remains stable. Exam: Mild converational dyspnea, obese, AAOx3 (has capacitance to make her own decisions) Neck supple Lung - dimin bs bases Ht RRR abd NT Ext- no sig edema <Devonte Ramos S - Last Filed: 12/14/17 13:37> (2) Sepsis Qualifiers: Sepsis type: sepsis due to unspecified organism Qualified Code(s): A41.9 - Sepsis, unspecified organism (3) Pneumonia Qualifiers: Pneumonia type: due to Pneumococcus Laterality: bilateral Lung location: lower lobe of lung Qualified Code(s): J13 - Pneumonia due to Streptococcus pneumoniae (5) Acute renal failure Qualifiers: Acute renal failure type: unspecified Qualified Code(s): N17.9 - Acute kidney failure, unspecified (7) COPD (chronic obstructive pulmonary disease) Qualifiers: COPD type: emphysema Emphysema type: panlobular Qualified Code(s): J43.1 - Panlobular emphysema (8) Coronary artery disease Qualifiers: Coronary Disease-Associated Artery/Lesion type: kake artery Three Affiliated vs. transplanted heart: kake heart Associated angina: without angina Qualified Code(s): I25.10 - Atherosclerotic heart disease of kake coronary artery without angina pectoris (9) UTI (urinary tract infection) Qualifiers: Urinary tract infection type: acute cystitis Hematuria presence: with hematuria Qualified Code(s): N30.01 - Acute cystitis with hematuria <Fili Ulloa - Last Filed: 12/14/17 16:18> (1) Sepsis Qualifiers: Sepsis type: sepsis due to unspecified organism Qualified Code(s): A41.9 - Sepsis, unspecified organism (2) Pancreatitis Qualifiers: Chronicity: acute Pancreatitis type: other Acute pancreatitis complication: no infection or necrosis Qualified Code(s): K85.80 - Other acute pancreatitis without necrosis or infection (3) UTI (urinary tract infection) Qualifiers: Urinary tract infection type: acute cystitis Hematuria presence: with hematuria Qualified Code(s): N30.01 - Acute cystitis with hematuria (4) Coronary artery disease Qualifiers: Coronary Disease-Associated Artery/Lesion type: kake artery Three Affiliated vs. transplanted heart: kake heart Associated angina: without angina Qualified Code(s): I25.10 - Atherosclerotic heart disease of kake coronary artery without angina pectoris (6) COPD (chronic obstructive pulmonary disease) Qualifiers: COPD type: emphysema Emphysema type: panlobular Qualified Code(s): J43.1 - Panlobular emphysema (8) Acute renal failure Qualifiers: Acute renal failure type: unspecified Qualified Code(s): N17.9 - Acute kidney failure, unspecified (10) Respiratory failure Qualifiers: Chronicity: acute Respiratory failure complication: hypoxia and hypercapnia Qualified Code(s): J96.01 - Acute respiratory failure with hypoxia; J96.02 - Acute respiratory failure with hypercapnia (11) Pneumonia Qualifiers: Pneumonia type: due to Pneumococcus Laterality: bilateral Lung location: lower lobe of lung Qualified Code(s): J13 - Pneumonia due to Streptococcus pneumoniae
[2017-12-14] MEDS: *HR* Heparin 5,000 UNIT/ML VIAL SQ SCH ×3 (09:35→23:17)
[2017-12-14] MEDS: MethylPREDNISolone 40 MG/ML VIAL IVP SCH (09:35)
[2017-12-14 11:03] LABS: Basophils % 0.1 %; Eosinophils % 0.1 %; Hematocrit 34.3 % (35.3-44.9); Hemoglobin 10.7 g/dL (11.5-15.4); Immature Granulocytes % 0.9 % (0-4); Lymphocytes # 1.5 K/mcL (0.6-4.6); Lymphocytes % 10.2 %; Mean Corpuscular HGB Conc 31.2 g/dL (31.6-35.5); Mean Corpuscular Hemoglobin 30.7 pg (28.0-33.3); Mean Corpuscular Volume 98.3 fL (83.0-100.0); Mean Platelet Volume 10.6 fL (9.4-12.4); Monocytes # 0.9 K/mcL (0.0-1.3); Monocytes % 5.7 %; Neutrophils # 12.3 K/mcL (1.6-8.9); Platelet Count 371 K/mcL (140-400); Red Blood Count 3.49 M/mcL (3.82-4.97); Red Cell Distribution Width 16.1 % (11.5-14.5)
[2017-12-14 11:58] LABS: Calcium 8.2 mg/dL (8.6-10.3); Potassium 2.9 mEq/L (3.5-5.1)
--- NOTE | 2017-12-14 16:46 | Pulmonology Progress Note ---
Date of Encounter: 12/14/17 Time of Encounter: 08:30 Assessment and Plan (1) Acute respiratory failure Current Visit: Yes Status: Acute Due to bilateral lower lobe pneumonia possibly complicated by hydrostatic pulmonary edema agree with primary team plan for diuresis. Patient code status changed to DNRCC -DNI Qualifiers: Respiratory failure complication: hypoxia Qualified Code(s): J96.01 - Acute respiratory failure with hypoxia (2) COPD (chronic obstructive pulmonary disease) Current Visit: Yes Status: Chronic To continue with bronchdilators and steroids Qualifiers: COPD type: emphysema Emphysema type: panlobular Qualified Code(s): J43.1 - Panlobular emphysema (3) Acute kidney injury superimposed on CKD Current Visit: Yes Status: Acute Stable to continue with diuresis (4) Pneumonia Current Visit: Yes Status: Acute To continue the broad spectrum antibiotics will need incentive spirometry and flutter valve to aid bronchopulmonary hygiene. IS will help in alveolar recruitment . Qualifiers: Pneumonia type: due to unspecified organism Laterality: bilateral Lung location: lower lobe of lung Qualified Code(s): J18.1 - Lobar pneumonia, unspecified organism Subjective Principal diagnosis: Pneumonia with Acute Hypoxic respiratory failure Interval history: Patient is not doing well with increased respiratory distress and she is desaturating on high flow nasal cannula , denies any chest pain or chest tightness sensation wants to go home Patient is hypoxic she is conscious oriented does not want any aggressive measure like intubation and chest compression in case she ends up with cardiopulmonary arrest [place] the primary team and the nurse to finalize the CODE STATUS. Objective PUL Vital signs: Last Vital Signs Temp 98.3 F 12/14/17 15:52 Pulse 118 12/14/17 15:52 Resp 16 12/14/17 16:28 BP 108/86 12/14/17 15:52 Pulse Ox 86 12/14/17 16:28 Auscultation: bilateral: diminished breath sounds (basilar diminshed breadth sounds ), rales (scattered rales ) Results - Laboratory Findings CBC and BMP: 12/14/17 10:27 12/14/17 10:27 ABG ABG pH 7.31 pH Units (7.32-7.45) L 12/10/17 15:16 ABG pCO2 46 mmHg (35-45) H 12/10/17 15:16 ABG pO2 71 mmHg (85-104) L 12/10/17 15:16 ABG O2 Saturation 92 % (95-98) L 12/10/17 15:16 PT/INR, D-dimer PT 12.2 Seconds (9.4-12.1) H 12/11/17 08:30 Abnormal lab findings: Abnormal lab results WBC 14.8 K/mcL (4.3-11.1) H 12/14/17 10:27 RBC 3.49 M/mcL (3.82-4.97) L 12/14/17 10:27 Hgb 10.7 g/dL (11.5-15.4) L 12/14/17 10:27 Hct 34.3 % (35.3-44.9) L 12/14/17 10:27 MCHC 31.2 g/dL (31.6-35.5) L 12/14/17 10:27 RDW 16.1 % (11.5-14.5) H 12/14/17 10:27 Neutrophils # 12.3 K/mcL (1.6-8.9) H 12/14/17 10:27 PT 12.2 Seconds (9.4-12.1) H 12/11/17 08:30 Heparin Anti-Xa, Unfract 0.08 IU/mL (0.30-0.70) L 12/14/17 01:50 ABG pH 7.31 pH Units (7.32-7.45) L 12/10/17 15:16 ABG pCO2 46 mmHg (35-45) H 12/10/17 15:16 ABG pO2 71 mmHg (85-104) L 12/10/17 15:16 ABG O2 Saturation 92 % (95-98) L 12/10/17 15:16 ABG Base Excess -3 mEq/L (-2 to 3) L 12/10/17 15:16 VBG pH 7.30 pH Units (7.32-7.42) L 12/13/17 06:06 VBG pO2 128 mmHg (25-50) H 12/13/17 06:06 Potassium 2.9 mEq/L (3.5-5.1) L 12/14/17 10:27 Chloride 114 mEq/L (98-107) H 12/14/17 10:27 Carbon Dioxide 22 mEq/L (23-29) L 12/14/17 10:27 BUN 26 mg/dL (8-23) H 12/14/17 10:27 Creatinine 1.99 mg/dL (0.60-1.20) H 12/14/17 10:27 Est GFR ( Amer) 30 (> 60) L 12/14/17 10:27 Est GFR (Non-Af Amer) 25 (> 60) L 12/14/17 10:27 Glucose 158 mg/dL (70-105) H 12/14/17 10:27 POC Glucose 235 mg/dL (70-99) H 12/14/17 15:52 Calculated Osmolality 306 (280-300) H 12/14/17 10:27 Uric Acid 8.2 mg/dL (2.3-7.6) H 12/09/17 15:15 Calcium 8.2 mg/dL (8.6-10.3) L 12/14/17 10:27 Total Bilirubin 0.2 mg/dL (0.3-1.0) L 12/10/17 04:34 AST 6 Units/L (13-39) L 12/10/17 04:34 ALT 3 Units/L (7-52) L 12/10/17 04:34 Alkaline Phosphatase 109 Units/L (34-104) H 12/10/17 04:34 Creatine Kinase 14 Units/L (30-223) L 12/09/17 15:15 Troponin I 0.11 ng/mL (< 0.04) H* 12/10/17 15:21 Serum Total Protein 5.9 g/dL (6.4-8.9) L 12/10/17 04:34 Albumin 1.9 g/dL (3.5-5.7) L 12/10/17 04:34 Globulin 4.0 g/dL (2.4-3.5) H 12/10/17 04:34 Albumin/Globulin Ratio 0.5 (1.1-2.2) L 12/10/17 04:34 Triglycerides 259 mg/dL (< 150) H 12/09/17 04:59 Lipase 180 Units/L (11-82) H 12/13/17 05:54 Urine Clarity Turbid (Clear) A 12/09/17 19:10 Ur Specific [place] 1.006 (1.010-1.025) L 12/09/17 19:10 Urine Protein 100 mg/dL (Neg-Trace) H 12/09/17 19:10 Urine Blood Moderate (Negative) H 12/09/17 19:10 Ur Leukocyte Esterase Large (Negative) H 12/09/17 19:10 Urine Microscopic RBC 5-15 per hpf (0-3) H 12/09/17 19:10 Urine Microscopic WBC TNTC per hpf (0-3) H 12/09/17 19:10 Ur Squamous Epith Cells Moderate per lpf (None-Few) H 12/09/17 19:10 Protein/Creatinin Ratio 7.09 mg/mg (0.00-0.20) H 12/09/17 19:10 Urine Total Protein 163 mg/dL (1-14) H 12/09/17 19:10 Vancomycin Trough 20 mcg/mL (5-10) H 12/13/17 05:54 - Microbiology Findings Microbiology Findings: Microbiology, Last 48 Hours 12/13/17 07:38 Blood Culture - Preliminary Peripheral Venipuncture Culture is incubating and being continuously monitored for growth. Final report to follow. 12/13/17 07:38 Blood Culture - Preliminary Peripheral Venipuncture Culture is incubating and being continuously monitored for growth. Final report to follow. 12/12/17 22:15 Legionella Antigen - Final Urine,Catheterized Streptococcus pneumoniae Antigen (M - Final - Clinical Findings Intake & Output: Intake & Output 12/14/17 12/14/17 12/14/17 07:59 15:59 23:59 Intake Total 0 / 0 480 / 480 Output Total 700 / 700 1900 / 1900 Balance -700 / -700 -1420 / -1420 Weight 58.7 kg Consult Discharge Plan - Plan Referrals: NONE,PCP [Primary Care Provider] -
[2017-12-14] MEDS: Aspirin Enteric Coated 325 MG Tablet PO SCH (17:37)
--- NOTE | 2017-12-14 17:44 | Nephrology Progress Note ---
Date of Encounter: 12/14/17 Time of Encounter: 12:00 - Assessment and Plan (1) CKD (chronic kidney disease) stage 4, GFR 15-29 ml/min Current Visit: Yes Status: Chronic SCR continues to improve past what was perceived as her baseline at 1.99, GFR 25 UOP noted at 800cc in the past 24hrs but drastically improved at 2600cc today sa far after lasix. Careful use of diuretics advised Ok to hold IVF for now Continue to avoid nephrotoxins if possible (2) Sepsis Current Visit: Yes Status: Acute Per primary. Qualifiers: Sepsis type: sepsis due to unspecified organism Qualified Code(s): A41.9 - Sepsis, unspecified organism (3) Pancreatitis Current Visit: Yes Status: Acute Per primary. Qualifiers: Chronicity: acute Acute pancreatitis complication: no infection or necrosis Qualified Code(s): K85.90 - Acute pancreatitis without necrosis or infection, unspecified (4) History of nephrectomy Current Visit: Yes Status: Chronic (5) Renal cyst, acquired, right Current Visit: Yes Status: Acute (6) Hypernatremia Current Visit: Yes Status: Acute sodium remains stable at 144, will monitor (7) Hypomagnesemia Current Visit: Yes Status: Acute Subjective Principal diagnosis: Pneumonia with Acute Hypoxic respiratory failure Interval history: Interim noted, pt seen and examined with daughter at bedside with complaints of back pain. Wants to go home soon. BiPAP noted on and appears comfortable Objective - Vital Signs Vital signs: Vital Signs Temp Pulse Resp BP Pulse Ox 12/14/17 16:28 16 86 12/14/17 15:52 98.3 F 118 16 108/86 90 12/14/17 12:03 140/89 12/14/17 12:01 35 93 12/14/17 11:59 28 93 12/14/17 11:49 106 29 133/97 96 12/14/17 08:04 28 97 12/14/17 07:00 97.9 F 99 24 97/49 99 12/14/17 04:41 24 89 12/14/17 04:00 98 F 101 19 109/93 99 12/13/17 23:52 97.8 F 98 26 122/69 91 12/13/17 22:58 31 97 12/13/17 20:00 97.8 F 84 19 133/78 86 12/13/17 19:56 25 88 Intake and Output 09/25/18 09/25/18 09/25/18 07:59 15:59 23:59 Intake Total 0 / 0 480 / 480 Output Total 700 / 700 1900 / 1900 Balance -700 / -700 -1420 / -1420 Intake: Oral 0 / 0 480 / 480 Output: Catheter 700 / 700 1900 / 1900 Other: Meal Lunch Percent of Meal Consumed 75% Stool Size Moderate Moderate Stool Consistency liquid loose liquid Stool Characteristics Mucoid Stool Color Brown Brown Yellow Yellow Green Weight 58.7 kg Blood Glucose* 129 235 Patient Weight 12/14/17 23:59 Weight 58.7 kg - General Appearance General appearance: Present: chronically ill EENT: Present: ATNC, mucous membranes moist Neck: Present: no JVD, supple Respiratory: Present: course breath sounds Cardiology: Present: no edema, normal S1, normal S2 Gastrointestinal: Present: no tenderness, no guarding Integumentary: Present: warm and dry Neurologic: Present: no focal deficit Musculoskeletal: Present: no deformities Psychiatric: Present: mood/affect appropriate - Lab 12/16/17 04:25 12/16/17 04:25 Most recent lab results ABG pH 7.31 pH Units (7.32-7.45) L 12/10/17 15:16 ABG pCO2 46 mmHg (35-45) H 12/10/17 15:16 ABG pO2 71 mmHg (85-104) L 12/10/17 15:16 ABG HCO3 23 mEq/L (21-27) 12/10/17 15:16 ABG O2 Saturation 92 % (95-98) L 12/10/17 15:16 Calcium 8.2 mg/dL (8.6-10.3) L 12/14/17 10:27 Phosphorus 3.3 mg/dL (2.7-4.5) 12/11/17 04:43 Magnesium 2.4 mg/dL (1.6-2.6) 12/11/17 04:43 Urine Creatinine 23 mg/dL 12/09/17 19:10 Urine Sodium 68.7 mEq/L 12/09/17 19:10 Urine Total Protein 163 mg/dL (1-14) H 12/09/17 19:10 Consult Discharge Plan - Plan Referrals: NONE,PCP [Primary Care Provider] -
[2017-12-15] MEDS: Ipratropium/Albuterol Neb 3 ML IH SCH ×6 (00:03→19:54)
[2017-12-15] MEDS ORDERED: Acetaminophen 325 MG TABLET PO PRN (00:21)
[2017-12-15 05:37] LABS: Basophils % 0.3 %; Hematocrit 31.3 % (35.3-44.9); Hemoglobin 9.8 g/dL (11.5-15.4); Immature Granulocytes % 1.7 % (0-4); Mean Corpuscular HGB Conc 31.3 g/dL (31.6-35.5); Mean Corpuscular Hemoglobin 30.1 pg (28.0-33.3); Mean Platelet Volume 11.3 fL (9.4-12.4); Monocytes # 0.9 K/mcL (0.0-1.3); Monocytes % 6.3 %; Neutrophils # 11.7 K/mcL (1.6-8.9); Platelet Count 331 K/mcL (140-400); Red Blood Count 3.26 M/mcL (3.82-4.97); Red Cell Distribution Width 15.8 % (11.5-14.5); Segmented Neutrophils % 84.7 %
[2017-12-15 06:07] LABS: Magnesium 1.5 mg/dL (1.6-2.6)
[2017-12-15] MEDS: Aspirin Enteric Coated 325 MG Tablet PO SCH (09:12)
[2017-12-15] MEDS: *HR* Heparin 5,000 UNIT/ML VIAL SQ SCH ×2 (09:12→17:31)
[2017-12-15] MEDS: MethylPREDNISolone 40 MG/ML VIAL IVP SCH (09:12)
[2017-12-15] MEDS: Insulin LISPRO 300 UNITS/3 ML VIAL SQ SCH ×4 (09:21→20:43)
--- NOTE | 2017-12-15 11:34 | Internal Med Progress Note ---
Hospitalist Progress Note - Encounter Date of Encounter: 12/15/17 Time of Encounter: 09:00 - Subjective Interval History: Chief complaint: Shortness of breath Patient states she is better overnight. Still refusing BiPAP. She is denying any complaints when asked and is constantly asking to go home. Cystoscopy remains on high-flow oxygen. She denies any chest pain. Nausea vomiting. No fevers or chills. Review of systems: Other than mentioned above is negative - Exam Vitals: Temp Pulse Resp BP Pulse Ox 98.4 F 87 18 132/68 90 12/15/17 11:08 12/15/17 11:08 12/15/17 11:08 12/15/17 11:08 12/15/17 11:08 Exam: General: Anxious, alert and oriented 3 Neck is supple Oropharynx is dry's Head: Normocephalic Skin: Cyanosis observed around the lips Lungs: Some wheezing heard CV: RRR. No murmurs rubs or gallops. Abdomen: Pain with deep palpation at sites of hernias. Bowel sounds in all 4 quadrants. MSK: Upper Extremities 4/5 strength neurological grossly nonfocal - Assessment and Plan (1) Sepsis Current Visit: Yes Status: Acute Assessment and Plan: presented with leukocytosis, tachycardia, tachypnea along with hypotension Secondary to UTI in conjunction with pancreatitis CT abdomen pelvis shows edema of the pancreas with pancreatic stranding and free fluid. There is no abscess Patient was given Flagyl and ceftriaxone in the ED He was given 2 L normal saline Lactic acid was 0.8 Plan: Obtain CBC in the morning. Telemetry. IV antibiotics. LR 75cc/hr 12/15: Patient continues on dosed Levaquin. Day #8 antibiotics. Will complete 10 day course (2) Pancreatitis Current Visit: Yes Status: Acute Assessment and Plan: Patient presented with worsening abdominal pain for the last couple weeks CT abdomen pelvis showed evidence of pancreatitis. Gallbladder and liver within normal limits. No evidence of ductal dilation. denies alcohol use, trauma Lipase is 1624 LFT, T-ara WNL home meds lasix has been known to cause drug induced pancreatitis. and macrobid has been associated with pancreatitis Clear etiology of pancreatitis obtain triglycerides 12/15: Resolved (3) UTI (urinary tract infection) Current Visit: Yes Status: Resolved Assessment and Plan: Patient presents with leukocytosis, hypotension Urinalysis shows turbid urine with pH of 9.0, moderate blood, leukocyte esterase and urine bacteria. There are a few squamous epithelial cells. Urine culture and blood cultures were collected at [facility] We will start patient on ceftriaxone and await culture results 12/15: Day#8 antibiotics. Currently Levaquin, renally dosed. All cultures negative. (4) Coronary artery disease Current Visit: Yes Status: Acute Assessment and Plan: hx of CAD patient is on aspirin and metoprolol at home w/o chest pain EKG sinus tachycardia without ST elevation or depression plan: patient is NPO will hold aspirin. lopressor prn for HR >120 (5) Anxiety Current Visit: Yes Status: Chronic (6) COPD (chronic obstructive pulmonary disease) Current Visit: Yes Status: Chronic Assessment and Plan: hx of COPD not on O2 at home currently requiring 4L O2 CXR negative for acute changes lung exam clear without crackles or wheezing prn nebulizer suspect patient is having respiratory distress 2nd to pain with respirations and coughing. 12/15: Overall improved. Change to oral prednisone 40 mg by mouth daily. Slow taper. Continue aggressive bronchodilator therapy. (7) Elevated troponin Current Visit: Yes Status: Acute (8) Acute renal failure Current Visit: Yes Status: Acute Assessment and Plan: NEETU on CKD in presence of sepsis Scr 3.38 previous SCR around 3 plan: strict I/O, avoid nephrotoxic agents, IVF, BMP in AM. 12/15: Creatinine has improved. Patient has acute on chronic renal failure stage III. (9) Hypernatremia Current Visit: Yes Status: Acute (10) Respiratory failure Current Visit: Yes Status: Acute Assessment and Plan: Patient is still requiring high level oxygen. She is refusing BiPAP. I had a long discussion with the patient and the daughter. Will request of care to evaluate. (11) Pneumonia Current Visit: Yes Status: Acute (12) Acute on chronic diastolic (congestive) heart failure Current Visit: Yes Status: Acute Assessment and Plan: Echo showed EF of 65%. Continued diuresis as renal function allows. She seems to be improving. Blood pressure control. Monitor renal function. DVT Prophylaxis: Sub Q heparin - Time Spent with Patient Total time spent is greater than 50% in coordination of care (as documented) at patient's floor/unit and/or counseling patient: Greater than 35 minutes Plan of Care Discussed with: patient Internal Medicine: Result - Labs CBC & Chem 7: 12/15/17 04:53 12/15/17 04:53 Labs: Short CBC 12/15/17 Range/Units 04:53 WBC 13.8 H (4.3-11.1) K/mcL Hgb 9.8 L (11.5-15.4) g/dL Hct 31.3 L (35.3-44.9) % Plt Count 331 (140-400) K/mcL Neutrophils # 11.7 H (1.6-8.9) K/mcL BMP 12/14/17 12/15/17 10:27 04:53 Sodium 144 140 Potassium 2.9 L 5.0 D Chloride 114 H 113 H Carbon Dioxide 22 L 22 L BUN 26 H 27 H Creatinine 1.99 H 1.91 H Glucose 158 H 204 H Calcium 8.2 L 8.0 L - ABG Interpretation ABG results: ABG ABG pH 7.31 pH Units (7.32-7.45) L 12/10/17 15:16 ABG pCO2 46 mmHg (35-45) H 12/10/17 15:16 ABG pO2 71 mmHg (85-104) L 12/10/17 15:16 ABG O2 Saturation 92 % (95-98) L 12/10/17 15:16 PT/INR, D-dimer PT 12.2 Seconds (9.4-12.1) H 12/11/17 08:30 - Impressions Impressions Chest X-Ray 12/14/17 10:14 IMPRESSION: Bibasilar opacities compatible with bilateral pleural effusions and associated atelectasis or infiltrates, right somewhat worse than left. Findings appear improved on the left but worsened on the right from recent CT chest 12/12/2017. D/ / 12/14/2017 10:44:27 Reji Burris MD / Roxanna Bowie Interpreting Provider: Reji Burris MD Consult Discharge Plan - Plan Referrals: NONE,PCP [Primary Care Provider] - (1) Sepsis Qualifiers: Sepsis type: sepsis due to unspecified organism Qualified Code(s): A41.9 - Sepsis, unspecified organism (2) Pancreatitis Qualifiers: Chronicity: acute Pancreatitis type: other Acute pancreatitis complication: no infection or necrosis Qualified Code(s): K85.80 - Other acute pancreatitis without necrosis or infection (3) UTI (urinary tract infection) Qualifiers: Urinary tract infection type: acute cystitis Hematuria presence: with hematuria Qualified Code(s): N30.01 - Acute cystitis with hematuria (4) Coronary artery disease Qualifiers: Coronary Disease-Associated Artery/Lesion type: [place] artery [place] vs. transplanted heart: [place] heart Associated angina: without angina Qualified Code(s): I25.10 - Atherosclerotic heart disease of [place] coronary artery without angina pectoris (6) COPD (chronic obstructive pulmonary disease) Qualifiers: COPD type: emphysema Emphysema type: panlobular Qualified Code(s): J43.1 - Panlobular emphysema (8) Acute renal failure Qualifiers: Acute renal failure type: unspecified Qualified Code(s): N17.9 - Acute kidney failure, unspecified (10) Respiratory failure Qualifiers: Chronicity: acute Respiratory failure complication: hypoxia and hypercapnia Qualified Code(s): J96.01 - Acute respiratory failure with hypoxia; J96.02 - Acute respiratory failure with hypercapnia (11) Pneumonia Qualifiers: Pneumonia type: due to Pneumococcus Laterality: bilateral Lung location: lower lobe of lung Qualified Code(s): J13 - Pneumonia due to Streptococcus pneumoniae
[2017-12-15] MEDS ORDERED: Furosemide 80 MG in 0.9 % Sodium Chloride 50 ML IVPB ONE (14:18)
--- NOTE | 2017-12-15 15:54 | Palliative - Consult Note ---
Date of Encounter: 12/15/17 Time of Encounter: 14:00 - Assessment and Plan (1) Dyspnea Current Visit: Yes Status: Acute Assessment and plan: Patient's oxygen saturation quickly drops to 80% without oxygen supplementation. Order Morphine SL PRN for Dyspnea. Qualifiers: Dyspnea type: unspecified Qualified Code(s): R06.00 - Dyspnea, unspecified (2) Sepsis Current Visit: Yes Status: Acute Assessment and plan: WBC improving. Continue management per primary team. Qualifiers: Sepsis type: sepsis due to unspecified organism Qualified Code(s): A41.9 - Sepsis, unspecified organism (3) Pancreatitis Current Visit: Yes Status: Acute Assessment and plan: Management per primary team. Qualifiers: Chronicity: acute Pancreatitis type: other Acute pancreatitis complication: no infection or necrosis Qualified Code(s): K85.80 - Other acute pancreatitis without necrosis or infection (4) Anxiety Current Visit: Yes Status: Chronic Assessment and plan: Patient's daughter reports chronic anxiety. Order Ativan SL PRN for comfort. (5) COPD (chronic obstructive pulmonary disease) Current Visit: Yes Status: Chronic Assessment and plan: Patient on high flow oxygen and BiPAP. End stage COPD with hypoxia. Qualifiers: COPD type: emphysema Emphysema type: panlobular Qualified Code(s): J43.1 - Panlobular emphysema (6) Acute renal failure Current Visit: Yes Status: Acute Assessment and plan: Nephrology recommendations appreciated. SCr improving. Qualifiers: Acute renal failure type: unspecified Qualified Code(s): N17.9 - Acute kidney failure, unspecified (7) Acute respiratory failure with hypoxia and hypercarbia Current Visit: Yes Status: Acute (8) Goals of care, counseling/discussion Current Visit: Yes Status: Acute Assessment and plan: Conducted 90 minutes goals of care discussion with patient and patient's daughter Emanuel regarding discharge planning, CODE STATUS, and disease projectory. Family was unsure of what COPD was, education provided; verbalized understanding. Patient's discharge plan is to return home with family care. Patient had just been approved for [employer] services. Family understands they need help in the home to provide her care. Patient expresses desire to remain a patient of Dr. Francisco. Patient initially uninterested in hospice as poor family experience in [place]. Explained benefits and services provided by hospice. Family and patient agree for [facility] at home. Family expressed desire to complete MPOA. Completed with Assistance from Angel STEVEN[facility]. Family desires to bring patient home Wednesday morning post completion of IV antibiotics. Dr. Ulloa Notified. Family needs: hospital bed, BSC, Oxygen, BiPAP, Bedpan, over the bed table. Already has Wheelchair, walker, shower chair, and nebulizer from [facility]. Notified Laureen at [facility] of planned discharge for wednesday and medical needs. BiPAP settings shared. Palliative-CN HPI - Data of Consult Patient: new to practice Consult date: 12/15/17 Requesting Physician: Levi Topete DO Primary Care Provider: PCP NONE - Consult Narrative Palliative Care/Comfort Measures: Palliative care Reason for consult: Goals of care History of present illness: Ms. Morales is a 67 year old female Arrived to [facility] as a Hospital to hospital transfer on 12/08/17 with chief complaints of abdominal pain times 2 weeks. PMH: arthritis, COPD, coronary artery disease, GERD, hyperlipidemia, hypertension, osteoporosis, Anemia, Stage 3 CKD, and Renal mass. EKG Sinus tachycardia, Low QRS Voltage in precordial Leads, Non-specific T-Wave Abnormality, and Abnormal rhythm ECG. Echo performed. Nephrology consulted for CKD stage 4; recommend avoid nephrotoxins r/ t dehydration or progression of CKD. Ultrasound report showing: Possible mildly hyperechoic 2.3 cm mass within the upper pole of the right kidney; Left nephrectomy; and Cholelithiasis. X-ray showing: Suboptimal chest, chin and neck obscuring portions of the upper right and left lung; Bibasilar consolidation, left greater than right with bilateral pleural effusion; Vascular engorgement and cephalization is demonstrated with bilateral peribronchial cuffing and perivascular haziness typical of congestive heart failure; Mild cardiomegaly; Stable examination with bilateral pleural effusions and bibasilar atelectasis; Findings suggesting emphysema. Patient admitted and medically managed for: Sepsis, Pancreatitis, Acute Renal Failure, Elevated troponin, COPD, CAD, UTI, Aneurysm, and Anxiety. Repeat chest x-ray showed no substantial changes. CT/CT abdomen pelvis w/o contrast showing: Large ventral complex abdominal hernia containing multiple loops of bowel; No bowel obstruction is suspected at this time; Inflammatory changes of the pancreas; Perivesical fat stranding; and Correlation for cystitis is recommended. Pulmonary consult for Acute respiratory failure, COPD, and Pneumonia; recommend high flow oxygen and BiPAP. Palliative care consults for Goals of care discussion. Patient sitting in bed eating lunch upon arrival. Patients daughter presented at bedside after initial introduction. Patient is alert and oriented times 2, disoriented to time. Patient denies pain, anxiety, dyspnea, nausea, and vomiting during assessment. Patients oxygen level dropped repetitively during discussion. Patient expressed desire to return home with family care. CC: Levi Topete, DO - Time Spent with Patient Time: Total time spent is greater than 50% in coordination of care (as documented) at patient's floor/unit and/or counseling patient: Greater than 35 minutes Past Med Surg Social Fam HX - Past Medical History Medical history: arthritis, COPD, coronary artery disease, GERD, hyperlipidemia , hypertension, osteoporosis Additional medical history: Anemia. stage 3 CKD. Renal Mass Psychiatric history: anxiety - Past Surgical History Additional surgical history: left nephrectomy - Social History Smoking Status: Current every day smoker Alcohol use: none Drug use: none Medications and Allergies Albuterol Sulfate [Ventolin Hfa] 2 puff IH Q6H PRN 10/07/17 [History] Aspirin [Ecotrin] 325 mg PO DAILY 10/07/17 [History] Furosemide [Lasix] 20 mg PO DAILY 10/07/17 [History] Isosorbide MONOnitrate (24 HR) [Imdur] 60 mg PO DAILY 10/07/17 [History] Montelukast Sodium [Singulair] 10 mg PO HS 10/07/17 [History] Omeprazole [PriLOSEC] 40 mg PO DAILY 10/07/17 [History] diazePAM [Valium] 5 mg PO TID PRN 10/07/17 [History] Diltiazem HCl [Cardizem Cd] 360 mg PO DAILY 12/09/17 [History] 3 Allergy/AdvReac Type Severity Reaction Status Date / Time iodine AdvReac See Verified 10/07/17 14:34 Comments ROS unobtainable: due to mental status Palliative Care-Exam - Constitutional Vitals: Temp Pulse Resp BP Pulse Ox 98.4 F 87 18 132/68 90 12/15/17 11:08 12/15/17 11:08 12/15/17 11:08 12/15/17 11:08 12/15/17 11:08 General appearance: Present: cooperative, mild distress - Head Head Exam: Present: atraumatic, normal inspection - Expanded Head Exam Head exam expanded IM: Absent: raccoon eyes - Eye Eye exam: Present: EOMI, normal appearance Pupils: Present: normal accommodation - ENT ENT exam: Present: mucous membranes dry, normal external ear exam - Expanded ENT Exam Mouth Exam: Present: normal external inspection. Absent: drooling - Neck Neck exam: Present: full ROM, normal inspection - Respiratory Respiratory exam: Present: accessory muscle use, rhonchi, wheezes. Absent: respiratory distress - Cardiovascular Cardiovascular exam: Present: +S1, +S2 - Expanded Cardiovascular Exam Peripheral pulses: 1+: Radial (L), Radial (R), Posterior Tibialis (L), Posterior Tibialis (R), Dorsalis Pedis (L) PM, Dorsalis Pedis (R) PM - GI/Abdominal Exam GI/Abdominal exam: Present: normal bowel sounds, soft. Absent: tenderness - Rectal Rectal exam: Present: deferred - Catheter Type: Urethral (Harmon) - Extremities Exam Extremities exam: Present: full ROM, normal inspection. Absent: calf tenderness , pedal edema, tenderness - Back Exam Back exam: Present: normal inspection. Absent: rash noted - Neurological Exam Neurological exam: Present: alert, altered, strengths equal and symetr throughout. Absent: oriented X3 - Expanded Neurological Exam Patient oriented to: Present: person, place. Absent: time - Psychiatric Psychiatric exam: Present: anxious - Skin Skin exam: Present: dry, intact, warm Internal Medicine - CN: Reslt - Labs CBC & Chem 7: 12/15/17 04:53 12/15/17 04:53 Labs: Short CBC 12/15/17 Range/Units 04:53 WBC 13.8 H (4.3-11.1) K/mcL Hgb 9.8 L (11.5-15.4) g/dL Hct 31.3 L (35.3-44.9) % Plt Count 331 (140-400) K/mcL Neutrophils # 11.7 H (1.6-8.9) K/mcL BMP 12/15/17 04:53 Sodium 140 Potassium 5.0 D Chloride 113 H Carbon Dioxide 22 L BUN 27 H Creatinine 1.91 H Glucose 204 H Calcium 8.0 L - ABG Interpretation ABG results: ABG ABG pH 7.31 pH Units (7.32-7.45) L 12/10/17 15:16 ABG pCO2 46 mmHg (35-45) H 12/10/17 15:16 ABG pO2 71 mmHg (85-104) L 12/10/17 15:16 ABG O2 Saturation 92 % (95-98) L 12/10/17 15:16 PT/INR, D-dimer PT 12.2 Seconds (9.4-12.1) H 12/11/17 08:30 Consult Discharge Plan - Plan Referrals: NONE,PCP [Primary Care Provider] - Palliative Quality Palliative Quality: Screen for Code Status: Yes, Screen for Goals of Care: Yes, Screen for Pain: Yes, If Pain Regimen Started, Initiate Bowel Regimen: NA, Screen for Nausea/Vomitting: Yes Code Status: 12/08/17 21:09 Resuscitation Status: Active [RES] Routine Comment: Resuscitation Status: Full Code 12/14/17 09:06 DNR [Resuscitation Status: Active] [RES] Routine Comment: Resuscitation Status: [id number]
--- NOTE | 2017-12-15 17:58 | Nephrology Progress Note ---
Date of Encounter: 12/15/17 Time of Encounter: 12:00 - Assessment and Plan (1) CKD (chronic kidney disease) stage 4, GFR 15-29 ml/min Current Visit: Yes Status: Chronic SCR continues to improve past what was perceived as her baseline at 1.91, GFR 26 UOP noted at 2950cc in the past 24hrs after lasix given. Careful use of diuretics advised No need for IVF at this time Continue to avoid nephrotoxins if possible (2) Sepsis Current Visit: Yes Status: Acute Per primary. Qualifiers: Sepsis type: sepsis due to unspecified organism Qualified Code(s): A41.9 - Sepsis, unspecified organism (3) Pancreatitis Current Visit: Yes Status: Acute Per primary Qualifiers: Chronicity: acute Acute pancreatitis complication: no infection or necrosis Qualified Code(s): K85.90 - Acute pancreatitis without necrosis or infection, unspecified (4) History of nephrectomy Current Visit: Yes Status: Chronic (5) Renal cyst, acquired, right Current Visit: Yes Status: Acute (6) Hypernatremia Current Visit: Yes Status: Acute sodium remains stable at 140, will monitor (7) Hypomagnesemia Current Visit: Yes Status: Acute Subjective Principal diagnosis: Pneumonia with Acute Hypoxic respiratory failure Interval history: Interim noted, pt seen and examined resting comfortably with nasal cannula. No family at bedside Objective - Vital Signs Vital signs: Vital Signs Temp Pulse Resp BP Pulse Ox 12/15/17 15:56 98.5 F 96 20 129/84 89 12/15/17 11:08 98.4 F 87 18 132/68 90 12/15/17 11:05 21 88 12/15/17 08:00 98.2 F 85 18 129/74 94 12/15/17 07:49 24 98 12/15/17 04:00 96.3 F L 75 19 139/80 94 12/15/17 03:12 24 123/82 96 12/15/17 00:03 18 123/82 93 12/15/17 00:00 98.3 F 101 19 123/82 92 12/14/17 19:52 18 114/67 92 12/14/17 19:00 98.0 F 109 19 114/67 Intake and Output 12/15/17 12/15/17 12/15/17 07:59 15:59 23:59 Intake Total 30 / 30 600 / 600 120 / 120 Output Total 500 / 500 650 / 650 Balance -470 / -470 600 / 600 -530 / -530 Intake: Oral 30 / 30 600 / 600 120 / 120 Output: Urine 500 / 500 Catheter 650 / 650 Other: Meal Lunch Percent of Meal Consumed 50% # Urine Diapers 1 Weight 60.8 kg Blood Glucose* 213 277 Patient Weight 12/15/17 23:59 Weight 60.8 kg - General Appearance General appearance: Present: chronically ill (mild distress due to breathing issues) EENT: Present: ATNC, mucous membranes moist Neck: Present: no JVD Respiratory: Present: course breath sounds (ant bilat) Cardiology: Present: no edema, normal S1, normal S2 Gastrointestinal: Present: no tenderness, no guarding, obese Integumentary: Present: warm and dry Neurologic: Present: no focal deficit Musculoskeletal: Present: no deformities Psychiatric: Present: mood/affect appropriate - Lab 12/16/17 04:25 12/16/17 04:25 Most recent lab results ABG pH 7.31 pH Units (7.32-7.45) L 12/10/17 15:16 ABG pCO2 46 mmHg (35-45) H 12/10/17 15:16 ABG pO2 71 mmHg (85-104) L 12/10/17 15:16 ABG HCO3 23 mEq/L (21-27) 12/10/17 15:16 ABG O2 Saturation 92 % (95-98) L 12/10/17 15:16 Calcium 8.0 mg/dL (8.6-10.3) L 12/15/17 04:53 Phosphorus 3.3 mg/dL (2.7-4.5) 12/11/17 04:43 Magnesium 1.5 mg/dL (1.6-2.6) L 12/15/17 04:53 Urine Creatinine 23 mg/dL 12/09/17 19:10 Urine Sodium 68.7 mEq/L 12/09/17 19:10 Urine Total Protein 163 mg/dL (1-14) H 12/09/17 19:10 Consult Discharge Plan - Plan Referrals: NONE,PCP [Primary Care Provider] -
[2017-12-15] MEDS: MORPHINE SUL Oral CONC 10 MG/0.5 ML ORAL.SYG SL PRN (20:43)
[2017-12-16] MEDS: Ipratropium/Albuterol Neb 3 ML IH SCH ×7 (00:08→23:17)
[2017-12-16] MEDS: *HR* Heparin 5,000 UNIT/ML VIAL SQ SCH ×4 (00:13→23:41)
[2017-12-16] MEDS: *HR* LORazepam Oral Conc 2 MG/ML SL PRN ×2 (01:27→23:41)
[2017-12-16 04:57] LABS: Basophils # 0.1 K/mcL (0.0-0.2); Basophils % 0.4 %; Hematocrit 31.5 % (35.3-44.9); Hemoglobin 9.8 g/dL (11.5-15.4); Immature Granulocytes % 2.1 % (0-4); Lymphocytes # 1.3 K/mcL (0.6-4.6); Lymphocytes % 9.1 %; Mean Corpuscular HGB Conc 31.1 g/dL (31.6-35.5); Mean Corpuscular Hemoglobin 29.7 pg (28.0-33.3); Mean Corpuscular Volume 95.5 fL (83.0-100.0); Mean Platelet Volume 10.9 fL (9.4-12.4); Monocytes # 0.8 K/mcL (0.0-1.3); Monocytes % 5.6 %; Neutrophils # 11.5 K/mcL (1.6-8.9); Platelet Count 336 K/mcL (140-400); Red Cell Distribution Width 15.9 % (11.5-14.5); Segmented Neutrophils % 82.8 %
[2017-12-16] MEDS: predniSONE 20 MG TABLET PO SCH (07:50)
[2017-12-16] MEDS: Aspirin Enteric Coated 325 MG Tablet PO SCH (07:50)
[2017-12-16] MEDS: Insulin LISPRO 300 UNITS/3 ML VIAL SQ SCH ×4 (07:51→22:32)
[2017-12-16] MEDS ORDERED: levoFLOXacin 750 MG TABLET PO SCH (09:00)
--- NOTE | 2017-12-16 09:36 | Internal Med Progress Note ---
<Devonte Ramos - Last Filed: 12/16/17 10:03> Hospitalist Progress Note - Encounter Date of Encounter: 12/16/17 Time of Encounter: 09:00 - Subjective Interval History: 67 y/o F pt is A&Ox3 and was seen and evaluated at bedside. Pt appears weak and struggles to lift her water bottle, however currently reports no pain. Pt pancreatitis has resolved and pt is tolerating a diet of pureed foods. Pt is still in respiratory distress. Pt is currently on day #9 of Levaquin (renally dosed) to manage her UTI and LLL pneumonia. Yesterday pt and daughter consulted with palliative care. Plan is to D/C pt on Wednesday after completing her Abx regimen. Her corticosteroid dose is being tapered out and she will remain on bronchodilators. Pt is CKD stage 4 and SCr levels continue to stay below baseline. Pt no longer has episodic diarrhea. Additionally, Ativan has been reintroduced to pt prn comfort. Blood cx pending - Exam Vitals: Temp Pulse Resp BP Pulse Ox 98.4 F 87 18 105/92 89 12/16/17 07:32 12/16/17 07:32 12/16/17 07:32 12/16/17 07:32 12/16/17 08:06 Exam: Head: Normocephalic Lungs: Some wheezing heard CV: RRR. No murmurs rubs or gallops. Abdomen: Pain with deep palpation at sites of hernias. Bowel sounds heard in all 4 quadrants. MSK: Upper Extremities 4/5 strength Skin: lips are cyanotic - Assessment and Plan (1) Acute respiratory failure with hypoxia and hypercarbia Current Visit: Yes Status: Acute Assessment and Plan: In setting of acute pancreatitis Underlying COPD/emphasematous changes on CXR CT Chest/abd/pelvis shows bibasilar consolidations, atelectasis L>R (her dependent side) ECHO 65%, CXR shows no pulm edema Patient more agreeable to full-faced bipap, has done well on AVAPs prior days, Plan: continuing duonebs and levaquin Taper of corticosteroids (12/15) Oral prednisone at 40 mg po Pt currently on BiPAP O2Sat of 94% Morphine SL prn dyspnea added (12/15) (2) Sepsis Current Visit: Yes Status: Acute Assessment and Plan: Sepsis in setting of acute pancreatitis. Pt meets criteria of leukocytosis, tachycardia, tachypnea, and hypotension. D-Dimer at admission 1923 (H) wt ct downtrending 13.9 (20.2 at admission) MAP today back at 100 (in 60s-70s at admission) Lactic acid measurements: 0.8, 1.0 Pt remains tachycardic Urine Output has been >1cc/kg/hr Last UOP was 525 mL over 4 hours Creatinine levels below pt baseline. Latest measurement 1.98. Abx coverage with Levaquin Day #9 (renally dosed) electrolyte repletion (s/p mag and calcium) (3) Pneumonia Current Visit: Yes Status: Acute Assessment and Plan: LLL pneumonia with identified organism S pneumoniae (12/12) Pt on day 9 of Abx therapy with Levaquin (renal dosing) (4) Pancreatitis Current Visit: Yes Status: Acute Assessment and Plan: Pt had worsening abdominal pain for 2 weeks prior to presentation CT abdomen/pelvis found Acute pancreatitis. GB/Liver WNL with no ductal dilation LFTs and T-ara WNL lipase downtrending at 180 (1624 at admission) TG levels 259 (H) at admission Pt denies alcohol use or trauma, has history of macrobid use. Zofran prn nausea Pt recently reintroduced fluids into diet (12/13) and has experienced no abdominal pain since Pt currently on pureed diet (5) Acute renal failure Current Visit: Yes Status: Acute Assessment and Plan: Pt has CKD Stage 4 Pt now below baseline with SCr 1.98 (3.38 at admission) UOP good >1cc/kg/hr and over last 4 hours produced 525 mL switched from LR to d5 1/2 NS hypotonic to elevate Na. Na WNL at 143 Lasix D/C (12/15) (6) Elevated troponin Current Visit: Yes Status: Acute Assessment and Plan: Elevated in setting of acute respiratory failure; possibly secondary to demand ischemia Pts levels: 0.15, 0.16, 0.16, 0.11 EKG finds: sinus tach w/out ST elevation or depression Pt denies any chest pain Echocardiogram WNL found LVEF 65% (7) COPD (chronic obstructive pulmonary disease) Current Visit: Yes Status: Chronic Assessment and Plan: CXR shows emphysematous changes continue duoneb eron, o2 titration (8) Coronary artery disease Current Visit: Yes Status: Acute Assessment and Plan: Pt has hx of CAD and is taking Aspirin and Metoprolol at home to manage No current complaint of CP (9) UTI (urinary tract infection) Current Visit: Yes Status: Resolved Assessment and Plan: Patient presents with leukocytosis, hypotension Urinalysis early in hospital course shows turbid urine with pH of 9.0, moderate blood, leukocyte esterase and urine bacteria. Urine culture and blood cultures were collected at [facility] Urine Culture has grown Klebsiella - CT abd/pelvis possitlbe cystitis (fat stranding) Abx coverage with Levaquin (renally dosed) Day #9 (10) Aneurysm Current Visit: Yes Status: Acute Assessment and Plan: Abdomen CT incidentally found infrarenal aortic aneurysm measuring 2.9cm. As per guidelines, f/u with PCP every 5 yrs to manage (11) Anxiety Current Visit: Yes Status: Chronic Assessment and Plan: Pt hx of anxiety for which she takes Valium Pt currently not anxious and has been placed on 0.5 mg Ativan to prevent w/ drawal (12/09) Ativan D/C (12/10) Ativan SL prn comfort (12/15) with recent change to palliative care plan (12) DVT prophylaxis Current Visit: Yes Status: Acute Assessment and Plan: Negative LE Doppler Heparin Drip D/C, imaging not concerning for PE (12/13) Currently on SubQ Heparin - Time Spent with Patient Total time spent is greater than 50% in coordination of care (as documented) at patient's floor/unit and/or counseling patient: Internal Medicine: Result - Labs CBC & Chem 7: 12/16/17 04:25 12/16/17 04:25 Labs: Short CBC 12/16/17 Range/Units 04:25 WBC 13.9 H (4.3-11.1) K/mcL Hgb 9.8 L (11.5-15.4) g/dL Hct 31.5 L (35.3-44.9) % Plt Count 336 (140-400) K/mcL Neutrophils # 11.5 H (1.6-8.9) K/mcL BMP 12/16/17 04:25 Sodium 135 L Potassium 5.0 Chloride 108 H Carbon Dioxide 22 L BUN 32 H Creatinine 1.98 H Glucose 234 H Calcium 8.0 L - ABG Interpretation ABG results: ABG ABG pH 7.31 pH Units (7.32-7.45) L 12/10/17 15:16 ABG pCO2 46 mmHg (35-45) H 12/10/17 15:16 ABG pO2 71 mmHg (85-104) L 12/10/17 15:16 ABG O2 Saturation 92 % (95-98) L 12/10/17 15:16 PT/INR, D-dimer PT 12.2 Seconds (9.4-12.1) H 12/11/17 08:30 Consult Discharge Plan - Plan Referrals: NONE,PCP [Primary Care Provider] - <Fili Ulloa - Last Filed: 12/16/17 13:50> Hospitalist Progress Note - Encounter Date of Encounter: 12/16/17 - Exam Vitals: Temp Pulse Resp BP Pulse Ox 98 F 102 21 104/63 79 12/16/17 11:39 12/16/17 11:39 12/16/17 11:33 12/16/17 11:39 12/16/17 11:39 - Assessment and Plan (1) Sepsis Current Visit: Yes Status: Acute (2) Pancreatitis Current Visit: Yes Status: Acute (3) UTI (urinary tract infection) Current Visit: Yes Status: Resolved (4) Coronary artery disease Current Visit: Yes Status: Acute (5) Anxiety Current Visit: Yes Status: Chronic (6) COPD (chronic obstructive pulmonary disease) Current Visit: Yes Status: Chronic (7) Elevated troponin Current Visit: Yes Status: Acute (8) Acute renal failure Current Visit: Yes Status: Acute (9) Hypernatremia Current Visit: Yes Status: Acute (10) Respiratory failure Current Visit: Yes Status: Acute (11) Pneumonia Current Visit: Yes Status: Acute (12) Acute on chronic diastolic (congestive) heart failure Current Visit: Yes Status: Acute - Time Spent with Patient Total time spent is greater than 50% in coordination of care (as documented) at patient's floor/unit and/or counseling patient: Internal Medicine: Result - Labs CBC & Chem 7: 12/16/17 04:25 12/16/17 04:25 Labs: Short CBC 12/16/17 Range/Units 04:25 WBC 13.9 H (4.3-11.1) K/mcL Hgb 9.8 L (11.5-15.4) g/dL Hct 31.5 L (35.3-44.9) % Plt Count 336 (140-400) K/mcL Neutrophils # 11.5 H (1.6-8.9) K/mcL BMP 12/16/17 04:25 Sodium 135 L Potassium 5.0 Chloride 108 H Carbon Dioxide 22 L BUN 32 H Creatinine 1.98 H Glucose 234 H Calcium 8.0 L - ABG Interpretation ABG results: ABG ABG pH 7.31 pH Units (7.32-7.45) L 12/10/17 15:16 ABG pCO2 46 mmHg (35-45) H 12/10/17 15:16 ABG pO2 71 mmHg (85-104) L 12/10/17 15:16 ABG O2 Saturation 92 % (95-98) L 12/10/17 15:16 PT/INR, D-dimer PT 12.2 Seconds (9.4-12.1) H 12/11/17 08:30 - Attending Attestation I performed an independent intrauterine exam this patient. I agree with the findings, assessment, and plan of medical student Devonte Ramos. Patient has improved. She is BiPAP now. She has diuresed well with Lasix. She continues on Levaquin for cystitis/urinary tract infection, currently denying of a 10 day course. She will continue on a steroid taper. The patient to go home on Wednesday with palliative care possibly hospice. She has improved significantly over the last 2 days. Last as outlined above. Exam: NAD, AAOx3 Skin warm and dry neck supple Lung - dimin ns nases Gt RRR abd sot +BS, NT Ext tr edema Neuro non focal <Devonte Ramos S - Last Filed: 12/16/17 10:03> (2) Sepsis Qualifiers: Sepsis type: sepsis due to unspecified organism Qualified Code(s): A41.9 - Sepsis, unspecified organism (3) Pneumonia Qualifiers: Pneumonia type: due to Pneumococcus Laterality: bilateral Lung location: lower lobe of lung Qualified Code(s): J13 - Pneumonia due to Streptococcus pneumoniae (5) Acute renal failure Qualifiers: Acute renal failure type: unspecified Qualified Code(s): N17.9 - Acute kidney failure, unspecified (7) COPD (chronic obstructive pulmonary disease) Qualifiers: COPD type: emphysema Emphysema type: panlobular Qualified Code(s): J43.1 - Panlobular emphysema (8) Coronary artery disease Qualifiers: Coronary Disease-Associated Artery/Lesion type: [place] artery [place] vs. transplanted heart: [place] heart Associated angina: without angina Qualified Code(s): I25.10 - Atherosclerotic heart disease of [place] coronary artery without angina pectoris (9) UTI (urinary tract infection) Qualifiers: Urinary tract infection type: acute cystitis Hematuria presence: with hematuria Qualified Code(s): N30.01 - Acute cystitis with hematuria <Fili Ulloa - Last Filed: 12/16/17 13:50> (1) Sepsis Qualifiers: Sepsis type: sepsis due to unspecified organism Qualified Code(s): A41.9 - Sepsis, unspecified organism (2) Pancreatitis Qualifiers: Chronicity: acute Pancreatitis type: other Acute pancreatitis complication: no infection or necrosis Qualified Code(s): K85.80 - Other acute pancreatitis without necrosis or infection (3) UTI (urinary tract infection) Qualifiers: Urinary tract infection type: acute cystitis Hematuria presence: with hematuria Qualified Code(s): N30.01 - Acute cystitis with hematuria (4) Coronary artery disease Qualifiers: Coronary Disease-Associated Artery/Lesion type: [place] artery [place] vs. transplanted heart: [place] heart Associated angina: without angina Qualified Code(s): I25.10 - Atherosclerotic heart disease of [place] coronary artery without angina pectoris (6) COPD (chronic obstructive pulmonary disease) Qualifiers: COPD type: emphysema Emphysema type: panlobular Qualified Code(s): J43.1 - Panlobular emphysema (8) Acute renal failure Qualifiers: Acute renal failure type: unspecified Qualified Code(s): N17.9 - Acute kidney failure, unspecified (10) Respiratory failure Qualifiers: Chronicity: acute Respiratory failure complication: hypoxia and hypercapnia Qualified Code(s): J96.01 - Acute respiratory failure with hypoxia; J96.02 - Acute respiratory failure with hypercapnia (11) Pneumonia Qualifiers: Pneumonia type: due to Pneumococcus Laterality: bilateral Lung location: lower lobe of lung Qualified Code(s): J13 - Pneumonia due to Streptococcus pneumoniae
--- NOTE | 2017-12-16 11:57 | Nephrology Progress Note ---
Date of Encounter: 12/16/17 Time of Encounter: 11:00 - Assessment and Plan (1) Sepsis Current Visit: Yes Status: Acute Per primary. Qualifiers: Sepsis type: sepsis due to unspecified organism Qualified Code(s): A41.9 - Sepsis, unspecified organism (2) Pancreatitis Current Visit: Yes Status: Acute Per primary, resolved. tolerating po intake Qualifiers: Chronicity: acute Acute pancreatitis complication: no infection or necrosis Qualified Code(s): K85.90 - Acute pancreatitis without necrosis or infection, unspecified (3) CKD (chronic kidney disease) stage 4, GFR 15-29 ml/min Current Visit: Yes Status: Chronic SCr slightly worse today at 1.98, GFR 25 but better than baseline UOP noted at 2050cc in the past 24hrs. Careful use of diuretics advised Continue to avoid nephrotoxins if possible (4) History of nephrectomy Current Visit: Yes Status: Chronic (5) Renal cyst, acquired, right Current Visit: Yes Status: Acute (6) Hypernatremia Current Visit: Yes Status: Acute Resolved at 135 (7) Hypomagnesemia Current Visit: Yes Status: Acute Subjective Principal diagnosis: Pneumonia with Acute Hypoxic respiratory failure Interval history: Interim noted, pt seen and examined resting comfortably with face mask in place. Objective - Vital Signs Vital signs: Vital Signs Temp Pulse Resp BP Pulse Ox 12/16/17 11:39 98 F 102 104/63 79 12/16/17 11:33 21 104/63 89 12/16/17 09:30 106 93/67 86 12/16/17 08:06 89 12/16/17 07:32 98.4 F 87 18 105/92 94 12/16/17 04:05 97.9 F 95 19 123/84 94 12/16/17 03:48 17 108/91 93 12/16/17 00:08 24 86 12/16/17 00:06 29 108/91 89 12/16/17 00:01 98.1 F 98 18 108/91 89 12/15/17 20:51 87 12/15/17 19:54 20 92 12/15/17 19:00 98.6 F 98 20 113/67 95 12/15/17 15:56 98.5 F 96 20 129/84 89 12/15/17 15:51 90 Intake and Output 12/15/17 12/16/17 12/16/17 23:59 07:59 15:59 Intake Total 198 / 198 100 / 100 120 / 120 Output Total 1550 / 1550 775 / 775 Balance -1352 / -1352 -675 / -675 120 / 120 Intake: IV Fluids 58 / 58 Lasix 80 MG In 0.9 % Sodium 58 / 58 Chloride 50 ML @ 100 mls/hr IVPB ONCE ONE Rx#:[id number] Oral 140 / 140 100 / 100 120 / 120 Output: Urine 900 / 900 525 / 525 Catheter 650 / 650 250 / 250 Other: Meal Breakfast Percent of Meal Consumed 100% Stool Size Smear Stool Consistency loose Stool Color Green Weight 61.1 kg Blood Glucose* 255 172 242 Patient Weight 12/16/17 23:59 Weight 61.1 kg - General Appearance General appearance: Present: chronically ill (NAD) EENT: Present: ATNC, mucous membranes moist Neck: Present: no JVD, supple Additional Comments: good areation ant bilat Cardiology: Present: edema, normal S1, normal S2 Gastrointestinal: Present: no tenderness, no guarding, obese Integumentary: Present: warm and dry Neurologic: Present: no focal deficit Musculoskeletal: Present: no deformities Psychiatric: Present: mood/affect appropriate - Lab 12/16/17 04:25 12/16/17 04:25 Most recent lab results ABG pH 7.31 pH Units (7.32-7.45) L 12/10/17 15:16 ABG pCO2 46 mmHg (35-45) H 12/10/17 15:16 ABG pO2 71 mmHg (85-104) L 12/10/17 15:16 ABG HCO3 23 mEq/L (21-27) 12/10/17 15:16 ABG O2 Saturation 92 % (95-98) L 12/10/17 15:16 Calcium 8.0 mg/dL (8.6-10.3) L 12/16/17 04:25 Phosphorus 3.3 mg/dL (2.7-4.5) 12/11/17 04:43 Magnesium 1.5 mg/dL (1.6-2.6) L 12/15/17 04:53 Urine Creatinine 23 mg/dL 12/09/17 19:10 Urine Sodium 68.7 mEq/L 12/09/17 19:10 Urine Total Protein 163 mg/dL (1-14) H 12/09/17 19:10 Consult Discharge Plan - Plan Referrals: NONE,PCP [Primary Care Provider] -
[2017-12-17] MEDS: Ipratropium/Albuterol Neb 3 ML IH SCH ×5 (03:44→20:27)
[2017-12-17] MEDS: Insulin LISPRO 300 UNITS/3 ML VIAL SQ SCH ×4 (09:15→20:38)
[2017-12-17] MEDS: predniSONE 20 MG TABLET PO SCH (09:16)
[2017-12-17] MEDS: *HR* Heparin 5,000 UNIT/ML VIAL SQ SCH ×3 (09:17→18:08)
[2017-12-17] MEDS: Aspirin Enteric Coated 325 MG Tablet PO SCH (09:17)
[2017-12-17 09:46] LABS: Basophils # 0.1 K/mcL (0.0-0.2); Basophils % 0.3 %; Eosinophils # 0.1 K/mcL (0.0-0.6); Eosinophils % 0.7 %; Hemoglobin 11.1 g/dL (11.5-15.4); Immature Granulocytes % 2.3 % (0-4); Lymphocytes # 1.9 K/mcL (0.6-4.6); Lymphocytes % 10.8 %; Mean Corpuscular Hemoglobin 29.8 pg (28.0-33.3); Mean Corpuscular Volume 99.2 fL (83.0-100.0); Mean Platelet Volume 10.8 fL (9.4-12.4); Monocytes # 0.8 K/mcL (0.0-1.3); Monocytes % 4.6 %; Neutrophils # 14.2 K/mcL (1.6-8.9); Platelet Count 298 K/mcL (140-400); Red Blood Count 3.73 M/mcL (3.82-4.97); Segmented Neutrophils % 81.3 %
[2017-12-17 10:06] LABS: Calcium 8.2 mg/dL (8.6-10.3); Potassium 5.1 mEq/L (3.5-5.1)
[2017-12-17] MEDS: MORPHINE SUL Oral CONC 10 MG/0.5 ML ORAL.SYG SL PRN (12:34)
--- NOTE | 2017-12-17 13:16 | Internal Med Progress Note ---
<Fili Ulloa - Last Filed: 12/17/17 14:17> Hospitalist Progress Note - Encounter Date of Encounter: 12/17/17 - Exam Vitals: Temp Pulse Resp BP Pulse Ox 97.7 F 106 18 131/75 90 12/17/17 12:01 12/17/17 12:01 12/17/17 12:01 12/17/17 12:01 12/17/17 12:01 - Assessment and Plan (1) Sepsis Current Visit: Yes Status: Acute (2) Pancreatitis Current Visit: Yes Status: Acute (3) UTI (urinary tract infection) Current Visit: Yes Status: Resolved (4) Coronary artery disease Current Visit: Yes Status: Acute (5) Anxiety Current Visit: Yes Status: Chronic (6) COPD (chronic obstructive pulmonary disease) Current Visit: Yes Status: Chronic (7) Elevated troponin Current Visit: Yes Status: Acute (8) Acute renal failure Current Visit: Yes Status: Acute (9) Hypernatremia Current Visit: Yes Status: Acute (10) Respiratory failure Current Visit: Yes Status: Acute (11) Pneumonia Current Visit: Yes Status: Acute (12) Acute on chronic diastolic (congestive) heart failure Current Visit: Yes Status: Acute - Time Spent with Patient Total time spent is greater than 50% in coordination of care (as documented) at patient's floor/unit and/or counseling patient: Internal Medicine: Result - Labs CBC & Chem 7: 12/17/17 09:35 12/17/17 09:35 Labs: Short CBC 12/17/17 Range/Units 09:35 WBC 17.5 H (4.3-11.1) K/mcL Hgb 11.1 L (11.5-15.4) g/dL Hct 37.0 (35.3-44.9) % Plt Count 298 (140-400) K/mcL Neutrophils # 14.2 H (1.6-8.9) K/mcL BMP 12/17/17 09:35 Sodium 137 Potassium 5.1 Chloride 107 Carbon Dioxide 24 BUN 34 H Creatinine 2.07 H Glucose 147 H Calcium 8.2 L - ABG Interpretation ABG results: ABG ABG pH 7.31 pH Units (7.32-7.45) L 12/10/17 15:16 ABG pCO2 46 mmHg (35-45) H 12/10/17 15:16 ABG pO2 71 mmHg (85-104) L 12/10/17 15:16 ABG O2 Saturation 92 % (95-98) L 12/10/17 15:16 PT/INR, D-dimer PT 12.2 Seconds (9.4-12.1) H 12/11/17 08:30 Consult Discharge Plan - Plan Referrals: NONE,PCP [Primary Care Provider] - Prescriptions: Ondansetron ODT [Zofran ODT] 4 mg SL Q4HR PRN #24 tab.rapdis PRN Reason: Nausea Ipratropium/Albuterol Neb [Duoneb] 3 ml IH Q6HR 4 Days #16 vial.neb Budesonide Neb [Pulmicort Neb] 0.5 mg IH BIDR 4 Days #8 ampul.neb LORazepam Oral Conc [Ativan Oral Conc] 0.5 mg SL Q2H PRN 4 Days #15 mls PRN Reason: Anxiety MORPHINE SUL Oral CONC [Roxanol Oral Conc] 5 mg PO Q4H PRN 4 Days #15 ml PRN Reason: Pain/Dyspnea Sennosides/Docusate Sodium [Senna Plus] 1 each PO BID 4 Days #8 tablet - Attending Attestation I performed an independent interview and examin of this patient. I agree with the findings, assessment, and plan of Devonte Ramos, medical student. Patient is improved. She is agreeable to BiPAP. She is doing well and being arranged for discharge tomorrow. Pt appears clinically euvolemic. Gen NAD Neck supple Lung dimin bs bases Ht rrr abd soft +BS, nt Ext tr edema <Devonte Ramos S - Last Filed: 12/17/17 16:18> Hospitalist Progress Note - Encounter Date of Encounter: 12/17/17 Time of Encounter: 10:30 - Subjective Interval History: 67 y/o F pt is A&Ox3 and was seen and evaluated at bedside. Pt appears to be feeling a lot better with improved strength and lessened SOB. Pt just completed her last day of Levaquin tx for LLL pneumonia. Pt has some complaints of discomfort in her throat and an empiric Nystatin will be added to combat risk of thrush. Plans is to discharge tomorrow. Blood cx pending - Exam Vitals: Temp Pulse Resp BP Pulse Ox 97.7 F 106 18 131/75 90 12/17/17 12:01 12/17/17 12:01 12/17/17 12:01 12/17/17 12:01 12/17/17 12:01 Exam: Head: Normocephalic Skin: Dry and intact. No cyanosis CV: RRR, NO murmurs rubs or gallops Lungs: Some wheezing present, less than previously noted Extremities: Pulses 2/4. No edema Abdomen: Bowel sounds in all quadrants. Pain to deep palpation only at sites of hernia - Assessment and Plan (1) Acute respiratory failure with hypoxia and hypercarbia Current Visit: Yes Status: Acute Assessment and Plan: In setting of acute pancreatitis Underlying COPD/emphasematous changes on CXR CT Chest/abd/pelvis shows bibasilar consolidations, atelectasis L>R (her dependent side) ECHO 65%, CXR shows no pulm edema Patient more agreeable to full-faced bipap, has done well on AVAPs prior days, Plan: continuing duonebs and levaquin Taper of corticosteroids (12/15) Oral prednisone at 40 mg po Pt currently on BiPAP O2Sat of 94% Morphine SL prn dyspnea added (12/15) (2) Sepsis Current Visit: Yes Status: Acute Assessment and Plan: Sepsis in setting of acute pancreatitis. Pt meets criteria of leukocytosis, tachycardia, tachypnea, and hypotension. D-Dimer at admission 1923 (H) wt ct increased to 17.5 (20.2 at admission) Lactic acid measurements: 0.8, 1.0 Pt remains tachycardic Urine Output has been >1cc/kg/hr Creatinine levels below pt baseline. Latest measurement 1.98. Abx coverage with Levaquin Day #10 (Last day of dosing) electrolyte repletion (s/p mag and calcium) (3) Pneumonia Current Visit: Yes Status: Acute Assessment and Plan: LLL pneumonia with identified organism S pneumoniae (12/12) Pt on day 10 of Abx therapy with Levaquin (renal dosing) (4) Pancreatitis Current Visit: Yes Status: Acute Assessment and Plan: Pt had worsening abdominal pain for 2 weeks prior to presentation CT abdomen/pelvis found Acute pancreatitis. GB/Liver WNL with no ductal dilation LFTs and T-ara WNL lipase downtrending at 180 (1624 at admission) TG levels 259 (H) at admission Pt denies alcohol use or trauma, has history of macrobid use. Zofran prn nausea Pt recently reintroduced fluids into diet (12/13) and has experienced no abdominal pain since (5) Acute renal failure Current Visit: Yes Status: Acute Assessment and Plan: Pt has CKD Stage 4 Pt now below baseline with SCr 1.98 (3.38 at admission) UOP good >1cc/kg/hr and over last 4 hours produced 525 mL switched from LR to d5 1/2 NS hypotonic to elevate Na. Na WNL at 143 Lasix D/C (12/15) (6) Elevated troponin Current Visit: Yes Status: Acute Assessment and Plan: Elevated in setting of acute respiratory failure; possibly secondary to demand ischemia Pts levels: 0.15, 0.16, 0.16, 0.11 EKG finds: sinus tach w/out ST elevation or depression Pt denies any chest pain Echocardiogram WNL found LVEF 65% (7) COPD (chronic obstructive pulmonary disease) Current Visit: Yes Status: Chronic Assessment and Plan: CXR shows emphysematous changes continue duoneb eron, o2 titration (8) Coronary artery disease Current Visit: Yes Status: Acute Assessment and Plan: Pt has hx of CAD and is taking Aspirin and Metoprolol at home to manage No current complaint of CP (9) UTI (urinary tract infection) Current Visit: Yes Status: Resolved Assessment and Plan: Patient presents with leukocytosis, hypotension Urinalysis early in hospital course shows turbid urine with pH of 9.0, moderate blood, leukocyte esterase and urine bacteria. Urine culture and blood cultures were collected at [facility] Urine Culture has grown Klebsiella - CT abd/pelvis possitlbe cystitis (fat stranding) Abx coverage with Levaquin (renally dosed) Day #10 (10) Aneurysm Current Visit: Yes Status: Acute Assessment and Plan: Abdomen CT incidentally found infrarenal aortic aneurysm measuring 2.9cm. As per guidelines, f/u with PCP every 5 yrs to manage (11) Anxiety Current Visit: Yes Status: Chronic Assessment and Plan: Pt hx of anxiety for which she takes Valium Pt currently not anxious and has been placed on 0.5 mg Ativan to prevent w/ drawal (12/09) Ativan D/C (12/10) Ativan SL prn comfort (12/15) with recent change to palliative care plan (12) DVT prophylaxis Current Visit: Yes Status: Acute Assessment and Plan: Negative LE Doppler Heparin Drip D/C, imaging not concerning for PE (12/13) Currently on SubQ Heparin - Time Spent with Patient Total time spent is greater than 50% in coordination of care (as documented) at patient's floor/unit and/or counseling patient: Greater than 35 minutes Plan of Care Discussed with: patient Internal Medicine: Result - Labs CBC & Chem 7: 12/17/17 09:35 12/17/17 09:35 Labs: Short CBC 12/17/17 Range/Units 09:35 WBC 17.5 H (4.3-11.1) K/mcL Hgb 11.1 L (11.5-15.4) g/dL Hct 37.0 (35.3-44.9) % Plt Count 298 (140-400) K/mcL Neutrophils # 14.2 H (1.6-8.9) K/mcL BMP 12/17/17 09:35 Sodium 137 Potassium 5.1 Chloride 107 Carbon Dioxide 24 BUN 34 H Creatinine 2.07 H Glucose 147 H Calcium 8.2 L - ABG Interpretation ABG results: ABG ABG pH 7.31 pH Units (7.32-7.45) L 12/10/17 15:16 ABG pCO2 46 mmHg (35-45) H 12/10/17 15:16 ABG pO2 71 mmHg (85-104) L 12/10/17 15:16 ABG O2 Saturation 92 % (95-98) L 12/10/17 15:16 PT/INR, D-dimer PT 12.2 Seconds (9.4-12.1) H 12/11/17 08:30 <Fili Ulloa R - Last Filed: 12/17/17 14:17> (1) Sepsis Qualifiers: Sepsis type: sepsis due to unspecified organism Qualified Code(s): A41.9 - Sepsis, unspecified organism (2) Pancreatitis Qualifiers: Chronicity: acute Pancreatitis type: other Acute pancreatitis complication: no infection or necrosis Qualified Code(s): K85.80 - Other acute pancreatitis without necrosis or infection (3) UTI (urinary tract infection) Qualifiers: Urinary tract infection type: acute cystitis Hematuria presence: with hematuria Qualified Code(s): N30.01 - Acute cystitis with hematuria (4) Coronary artery disease Qualifiers: Coronary Disease-Associated Artery/Lesion type: [place] artery [place] vs. transplanted heart: [place] heart Associated angina: without angina Qualified Code(s): I25.10 - Atherosclerotic heart disease of [place] coronary artery without angina pectoris (6) COPD (chronic obstructive pulmonary disease) Qualifiers: COPD type: emphysema Emphysema type: panlobular Qualified Code(s): J43.1 - Panlobular emphysema (8) Acute renal failure Qualifiers: Acute renal failure type: unspecified Qualified Code(s): N17.9 - Acute kidney failure, unspecified (10) Respiratory failure Qualifiers: Chronicity: acute Respiratory failure complication: hypoxia and hypercapnia Qualified Code(s): J96.01 - Acute respiratory failure with hypoxia; J96.02 - Acute respiratory failure with hypercapnia (11) Pneumonia Qualifiers: Pneumonia type: due to Pneumococcus Laterality: bilateral Lung location: lower lobe of lung Qualified Code(s): J13 - Pneumonia due to Streptococcus pneumoniae <Devonte Ramos S - Last Filed: 12/17/17 16:18> (2) Sepsis Qualifiers: Sepsis type: sepsis due to unspecified organism Qualified Code(s): A41.9 - Sepsis, unspecified organism (3) Pneumonia Qualifiers: Pneumonia type: due to Pneumococcus Laterality: bilateral Lung location: lower lobe of lung Qualified Code(s): J13 - Pneumonia due to Streptococcus pneumoniae (4) Pancreatitis Qualifiers: Chronicity: acute Acute pancreatitis complication: no infection or necrosis (5) Acute renal failure Qualifiers: Acute renal failure type: unspecified Qualified Code(s): N17.9 - Acute kidney failure, unspecified (7) COPD (chronic obstructive pulmonary disease) Qualifiers: COPD type: emphysema Emphysema type: panlobular Qualified Code(s): J43.1 - Panlobular emphysema (8) Coronary artery disease Qualifiers: Coronary Disease-Associated Artery/Lesion type: [place] artery [place] vs. transplanted heart: [place] heart Associated angina: without angina Qualified Code(s): I25.10 - Atherosclerotic heart disease of [place] coronary artery without angina pectoris (9) UTI (urinary tract infection) Qualifiers: Urinary tract infection type: acute cystitis Hematuria presence: with hematuria Qualified Code(s): N30.01 - Acute cystitis with hematuria
--- NOTE | 2017-12-17 14:27 | Palliative Progress Note ---
Date of Encounter: 12/17/17 Time of Encounter: 11:00 - Assessment and plan (1) Dyspnea Current Visit: Yes Status: Acute Assessment and plan: Patient denies dyspnea during assessment. Received 1 dose of Roxanol in the last 24 hours; continue PRN. Qualifiers: Dyspnea type: unspecified Qualified Code(s): R06.00 - Dyspnea, unspecified (2) Sepsis Current Visit: Yes Status: Acute Qualifiers: Sepsis type: sepsis due to unspecified organism Qualified Code(s): A41.9 - Sepsis, unspecified organism (3) Pancreatitis Current Visit: Yes Status: Acute Qualifiers: Chronicity: acute Pancreatitis type: other Acute pancreatitis complication: no infection or necrosis Qualified Code(s): K85.80 - Other acute pancreatitis without necrosis or infection (4) Anxiety Current Visit: Yes Status: Chronic Assessment and plan: Patient denies anxiety during assessment. Has received 1 dose of Ativan in the last 24 hours, continue PRN. (5) COPD (chronic obstructive pulmonary disease) Current Visit: Yes Status: Chronic Qualifiers: COPD type: emphysema Emphysema type: panlobular Qualified Code(s): J43.1 - Panlobular emphysema (6) Acute renal failure Current Visit: Yes Status: Acute Qualifiers: Acute renal failure type: unspecified Qualified Code(s): N17.9 - Acute kidney failure, unspecified (7) Acute respiratory failure with hypoxia and hypercarbia Current Visit: Yes Status: Acute Assessment and plan: Patient being admitted to [facility] at home tomorrow. Oxygen decreased to 15L NC; patient tolerated. (8) Goals of care, counseling/discussion Current Visit: Yes Status: Acute Assessment and plan: Discussed goals of care with patient. Patient desires to go home tomorrow with [facility]. Decreased oxygen level to amount required for home care, patient to be discharged on 15L NC; tolerated well. Patient desires to go home with family care, will have support of [employer]. Discussed CODE STATUS with patient and daughter, change status to DNRCC. Updated Primary RN of plan to discharge home with [facility] on 12/18/17 with 15L NC and BiPAP. Patient will need transport via ambulance home. Notified [facility] of patient's tolerance with lower oxygen requirement. Prescriptions written for Ativan, Senna plus, Zofran, and Roxinol PRN SL; sent to [facility], will be locked on unit until patient's discharge. - Time Spent With Patient Total time spent is greater than 50% in coordination of care (as documented) at patient's floor/unit and/or counseling patient: - Subjective Interval history: Patient sitting up in bed. Alert and oriented times 3. Denies pain, dyspnea, anxiety, nausea, and vomiting. No family present at bedside. Patient's oxygen saturation 86-93% on [place] 70%. Patient sitting up and eating breakfast. Patient reported being ready to go home with [facility] and be kept comfortable. Informed patient would follow up with [facility] regarding Oxygen, agreed. Spoke with [facility] and informed them of patient's oxygen requirements, unable to discharge home with [place]. Highest level of oxygen they can support is 15L NC. Notified Primary RN of need to attempt NC at 15L. Patient tolerated 15L NC for 5 hours at time of charting. Notified [facility] of patient being stable with 15L Oxygen, plan to discharge home in place with [facility]. Notified Daughter Rosanna Izquierdo of plan for discharge with [facility]; verbalized understanding. - Constitutional Vitals: Abnormal lab results WBC 17.5 K/mcL (4.3-11.1) H 12/17/17 09:35 RBC 3.73 M/mcL (3.82-4.97) L 12/17/17 09:35 Hgb 11.1 g/dL (11.5-15.4) L 12/17/17 09:35 MCHC 30.0 g/dL (31.6-35.5) L 12/17/17 09:35 RDW 16.0 % (11.5-14.5) H 12/17/17 09:35 Neutrophils # 14.2 K/mcL (1.6-8.9) H 12/17/17 09:35 PT 12.2 Seconds (9.4-12.1) H 12/11/17 08:30 Heparin Anti-Xa, Unfract 0.08 IU/mL (0.30-0.70) L 12/14/17 01:50 ABG pH 7.31 pH Units (7.32-7.45) L 12/10/17 15:16 ABG pCO2 46 mmHg (35-45) H 12/10/17 15:16 ABG pO2 71 mmHg (85-104) L 12/10/17 15:16 ABG O2 Saturation 92 % (95-98) L 12/10/17 15:16 ABG Base Excess -3 mEq/L (-2 to 3) L 12/10/17 15:16 VBG pH 7.30 pH Units (7.32-7.42) L 12/13/17 06:06 VBG pO2 128 mmHg (25-50) H 12/13/17 06:06 BUN 34 mg/dL (8-23) H 12/17/17 09:35 Creatinine 2.07 mg/dL (0.60-1.20) H 12/17/17 09:35 Est GFR ( Amer) 29 (> 60) L 12/17/17 09:35 Est GFR (Non-Af Amer) 24 (> 60) L 12/17/17 09:35 Glucose 147 mg/dL (70-105) H 12/17/17 09:35 POC Glucose 172 mg/dL (70-99) H 12/16/17 07:30 Uric Acid 8.2 mg/dL (2.3-7.6) H 12/09/17 15:15 Calcium 8.2 mg/dL (8.6-10.3) L 12/17/17 09:35 Magnesium 1.5 mg/dL (1.6-2.6) L 12/15/17 04:53 Total Bilirubin 0.2 mg/dL (0.3-1.0) L 12/10/17 04:34 AST 6 Units/L (13-39) L 12/10/17 04:34 ALT 3 Units/L (7-52) L 12/10/17 04:34 Alkaline Phosphatase 109 Units/L (34-104) H 12/10/17 04:34 Creatine Kinase 14 Units/L (30-223) L 12/09/17 15:15 Troponin I 0.11 ng/mL (< 0.04) H* 12/10/17 15:21 Serum Total Protein 5.9 g/dL (6.4-8.9) L 12/10/17 04:34 Albumin 1.9 g/dL (3.5-5.7) L 12/10/17 04:34 Globulin 4.0 g/dL (2.4-3.5) H 12/10/17 04:34 Albumin/Globulin Ratio 0.5 (1.1-2.2) L 12/10/17 04:34 Triglycerides 259 mg/dL (< 150) H 12/09/17 04:59 Lipase 180 Units/L (11-82) H 12/13/17 05:54 Urine Clarity Turbid (Clear) A 12/09/17 19:10 Ur Specific [place] 1.006 (1.010-1.025) L 12/09/17 19:10 Urine Protein 100 mg/dL (Neg-Trace) H 12/09/17 19:10 Urine Blood Moderate (Negative) H 12/09/17 19:10 Ur Leukocyte Esterase Large (Negative) H 12/09/17 19:10 Urine Microscopic RBC 5-15 per hpf (0-3) H 12/09/17 19:10 Urine Microscopic WBC TNTC per hpf (0-3) H 12/09/17 19:10 Ur Squamous Epith Cells Moderate per lpf (None-Few) H 12/09/17 19:10 Protein/Creatinin Ratio 7.09 mg/mg (0.00-0.20) H 12/09/17 19:10 Urine Total Protein 163 mg/dL (1-14) H 12/09/17 19:10 Vancomycin Trough 20 mcg/mL (5-10) H 12/13/17 05:54 General appearance: Present: cooperative, no acute distress - Head Head exam: Present: atraumatic, normal inspection - Eye Eye exam: Present: normal appearance, PERRL. Absent: periorbital swelling, periorbital tenderness Pupils: Present: normal accommodation - ENT ENT exam: Present: mucous membranes moist, normal external ear exam - Neck Neck exam: Present: full ROM, normal inspection - Respiratory Respiratory exam: Present: decreased breath sounds, rhonchi, wheezes. Absent: accessory muscle use, respiratory distress - Cardiovascular Cardiovascular exam: Present: +S1, +S2 - GI/Abdominal GI/Abdominal exam: Present: hypoactive bowel sounds, soft. Absent: tenderness - Rectal Rectal exam: Present: deferred - Extremities Exam Extremities exam: Present: full ROM, normal inspection. Absent: pedal edema, tenderness - Back Exam Back exam: Present: full ROM - Neurological Exam Neurological exam: Present: alert, oriented X3, strengths equal and symetr throughout. Absent: altered - Psychiatric Psychiatric exam: Present: normal affect, normal mood - Skin Skin exam: Present: intact, normal color, warm Palliative Quality Palliative Quality: Screen for Code Status: Yes, Screen for Goals of Care: Yes, Screen for Pain: Yes, If Pain Regimen Started, Initiate Bowel Regimen: NA, Screen for Nausea/Vomitting: Yes Code Status: 12/08/17 21:09 Resuscitation Status: Active [RES] Routine Comment: Resuscitation Status: Full Code 12/14/17 09:06 DNR [Resuscitation Status: Active] [RES] Routine Comment: Resuscitation Status: [id number] - Labs CBC & Chem 7: 12/17/17 09:35 12/17/17 09:35 Labs: Laboratory Results - last 24 hr 12/16/17 12/17/17 12/17/17 07:30 09:35 09:35 WBC 17.5 H RBC 3.73 L Hgb 11.1 L Hct 37.0 MCV 99.2 MCH 29.8 MCHC 30.0 L RDW 16.0 H Plt Count 298 MPV 10.8 Immature Gran % 2.3 Seg Neutrophils % 81.3 Lymphocytes % 10.8 Monocytes % 4.6 Eosinophils % 0.7 Basophils % 0.3 Neutrophils # 14.2 H Lymphocytes # 1.9 Monocytes # 0.8 Eosinophils # 0.1 Basophils # 0.1 Sodium 137 Potassium 5.1 Chloride 107 Carbon Dioxide 24 BUN 34 H Creatinine 2.07 H Est GFR ( Amer) 29 L Est GFR (Non-Af Amer) 24 L BUN/Creatinine Ratio 16 Glucose 147 H POC Glucose 172 H Calculated Osmolality 294 Calcium 8.2 L - ABG Interpretation ABG results: ABG ABG pH 7.31 pH Units (7.32-7.45) L 12/10/17 15:16 ABG pCO2 46 mmHg (35-45) H 12/10/17 15:16 ABG pO2 71 mmHg (85-104) L 12/10/17 15:16 ABG O2 Saturation 92 % (95-98) L 12/10/17 15:16 PT/INR, D-dimer PT 12.2 Seconds (9.4-12.1) H 12/11/17 08:30 Consult Discharge Plan - Plan Referrals: NONE,PCP [Primary Care Provider] -
[2017-12-17] MEDS: Nystatin SUSP 5 ML UD.LIQ PO SCH ×3 (16:41→20:36)
--- NOTE | 2017-12-17 16:51 | Nephrology Progress Note ---
Date of Encounter: 12/17/17 Time of Encounter: 12:00 - Assessment and Plan (1) CKD (chronic kidney disease) stage 4, GFR 15-29 ml/min Current Visit: Yes Status: Chronic SCr noted improved at 2.07, GFR 24 which is slightly worse than yesterday but still better than baseline UOP documented at 1275cc in the past 24hrs which is good Continue to avoid nephrotoxins if possible Given hospice care transition, will sign off and please reconsult prn (2) Sepsis Current Visit: Yes Status: Acute Qualifiers: Sepsis type: sepsis due to unspecified organism Qualified Code(s): A41.9 - Sepsis, unspecified organism (3) Pancreatitis Current Visit: Yes Status: Acute Qualifiers: Chronicity: acute Acute pancreatitis complication: no infection or necrosis Qualified Code(s): K85.90 - Acute pancreatitis without necrosis or infection, unspecified (4) History of nephrectomy Current Visit: Yes Status: Chronic (5) Renal cyst, acquired, right Current Visit: Yes Status: Acute (6) Hypernatremia Current Visit: Yes Status: Acute (7) Hypomagnesemia Current Visit: Yes Status: Acute Subjective Principal diagnosis: CKD Interval history: Interim noted, pt seen and examined with discharge with hospice care planned tomorrow. Objective - Vital Signs Vital signs: Vital Signs Temp Pulse Resp BP Pulse Ox 12/17/17 16:06 18 93 12/17/17 16:00 97.7 F 86 22 135/77 93 12/17/17 12:01 97.7 F 106 18 131/75 90 12/17/17 11:54 20 93 12/17/17 07:57 18 138/97 91 12/17/17 06:32 98.0 F 95 20 138/97 95 12/17/17 05:02 93 20 137/92 96 12/17/17 03:45 17 96 12/16/17 23:18 20 90 12/16/17 22:17 86 12/16/17 20:54 98.7 F 93 19 129/80 89 12/16/17 19:51 18 90 Intake and Output 12/17/17 12/17/17 12/17/17 07:59 15:59 23:59 Intake Total 300 / 300 Output Total 800 / 800 1 / 1 550 / 550 Balance -800 / -800 -1 / -1 -250 / -250 Intake: Oral 300 / 300 Output: Stool Catheter 800 / 800 550 / 550 Other: Weight 61.3 kg Blood Glucose* 195 Patient Weight 12/17/17 23:59 Weight 61.3 kg - General Appearance General appearance: Present: chronically ill, frail EENT: Present: ATNC, mucous membranes moist Neck: Present: no JVD, supple Additional Comments: good areation ant bilat Cardiology: Present: edema (trace), normal S1, normal S2 Gastrointestinal: Present: no tenderness, no guarding Integumentary: Present: warm and dry Neurologic: Present: no focal deficit Musculoskeletal: Present: no deformities Psychiatric: Present: mood/affect appropriate - Lab 12/19/17 13:06 12/19/17 13:06 Most recent lab results ABG pH 7.31 pH Units (7.32-7.45) L 12/10/17 15:16 ABG pCO2 46 mmHg (35-45) H 12/10/17 15:16 ABG pO2 71 mmHg (85-104) L 12/10/17 15:16 ABG HCO3 23 mEq/L (21-27) 12/10/17 15:16 ABG O2 Saturation 92 % (95-98) L 12/10/17 15:16 Calcium 8.2 mg/dL (8.6-10.3) L 12/17/17 09:35 Phosphorus 3.3 mg/dL (2.7-4.5) 12/11/17 04:43 Magnesium 1.5 mg/dL (1.6-2.6) L 12/15/17 04:53 Urine Creatinine 23 mg/dL 12/09/17 19:10 Urine Sodium 68.7 mEq/L 12/09/17 19:10 Urine Total Protein 163 mg/dL (1-14) H 12/09/17 19:10 Consult Discharge Plan - Plan Instructions: Lorazepam (By mouth), Ipratropium (By breathing), Laxative, Stimulant (By mouth), Morphine, Rapid Release (By mouth), Ondansetron (By mouth) , Budesonide (By breathing), Acute Kidney Injury (DC), Urinary Tract Infection in Women (DC), Hospice Care (GEN), Chronic Obstructive Pulmonary Disease (DC), Pneumonia (DC) Referrals: NONE,PCP [Primary Care Provider] - Prescriptions: Ondansetron ODT [Zofran ODT] 4 mg SL Q4HR PRN #24 tab.rapdis PRN Reason: Nausea Ipratropium/Albuterol Neb [Duoneb] 3 ml IH Q6HR 4 Days #16 vial.neb Budesonide Neb [Pulmicort Neb] 0.5 mg IH BIDR 4 Days #8 ampul.neb LORazepam Oral Conc [Ativan Oral Conc] 0.5 mg SL Q2H PRN 4 Days #15 mls PRN Reason: Anxiety MORPHINE SUL Oral CONC [Roxanol Oral Conc] 5 mg PO Q4H PRN 4 Days #15 ml PRN Reason: Pain/Dyspnea Sennosides/Docusate Sodium [Senna Plus] 1 each PO BID 4 Days #8 tablet
[2017-12-17] MEDS: Sennosides/Docusate Sodium TABLET PO SCH (20:36)
[2017-12-18] MEDS: Ipratropium/Albuterol Neb 3 ML IH SCH ×7 (00:17→23:33)
[2017-12-18] MEDS: *HR* Heparin 5,000 UNIT/ML VIAL SQ SCH ×4 (00:23→23:32)
[2017-12-18] MEDS: *HR* LORazepam Oral Conc 2 MG/ML SL PRN ×2 (00:25→23:32)
[2017-12-18] MEDS: Nystatin SUSP 5 ML UD.LIQ PO SCH ×4 (08:18→20:58)
[2017-12-18] MEDS: Aspirin Enteric Coated 325 MG Tablet PO SCH (08:19)
[2017-12-18] MEDS: predniSONE 20 MG TABLET PO SCH (08:19)
[2017-12-18] MEDS: Sennosides/Docusate Sodium TABLET PO SCH ×2 (08:19→20:58)
[2017-12-18] MEDS: Insulin LISPRO 300 UNITS/3 ML VIAL SQ SCH ×4 (08:19→20:59)
--- NOTE | 2017-12-18 08:57 | Internal Med Progress Note ---
<Fili Ulloa - Last Filed: 12/18/17 12:42> Hospitalist Progress Note - Encounter Date of Encounter: 12/18/17 - Exam Vitals: Temp Pulse Resp BP Pulse Ox 98.2 F 80 16 133/82 95 12/18/17 11:16 12/18/17 11:16 12/18/17 11:16 12/18/17 11:16 12/18/17 11:16 - Assessment and Plan (1) Sepsis Current Visit: Yes Status: Acute (2) Pancreatitis Current Visit: Yes Status: Acute (3) UTI (urinary tract infection) Current Visit: Yes Status: Resolved (4) Coronary artery disease Current Visit: Yes Status: Acute (5) Anxiety Current Visit: Yes Status: Chronic (6) COPD (chronic obstructive pulmonary disease) Current Visit: Yes Status: Chronic (7) Elevated troponin Current Visit: Yes Status: Acute (8) Acute renal failure Current Visit: Yes Status: Acute (9) Hypernatremia Current Visit: Yes Status: Acute (10) Respiratory failure Current Visit: Yes Status: Acute (11) Pneumonia Current Visit: Yes Status: Acute (12) Acute on chronic diastolic (congestive) heart failure Current Visit: Yes Status: Acute - Time Spent with Patient Total time spent is greater than 50% in coordination of care (as documented) at patient's floor/unit and/or counseling patient: Internal Medicine: Result - Labs CBC & Chem 7: 12/18/17 08:58 12/18/17 08:58 Labs: Short CBC 12/18/17 Range/Units 08:58 WBC 14.0 H (4.3-11.1) K/mcL Hgb 9.8 L (11.5-15.4) g/dL Hct 31.9 L (35.3-44.9) % Plt Count 268 (140-400) K/mcL Neutrophils # 11.7 H (1.6-8.9) K/mcL BMP 12/18/17 08:58 Sodium 132 L Potassium 5.6 H Chloride 107 Carbon Dioxide 23 BUN 40 H Creatinine 2.33 H Glucose 287 H Calcium 8.2 L - ABG Interpretation ABG results: ABG ABG pH 7.31 pH Units (7.32-7.45) L 12/10/17 15:16 ABG pCO2 46 mmHg (35-45) H 12/10/17 15:16 ABG pO2 71 mmHg (85-104) L 12/10/17 15:16 ABG O2 Saturation 92 % (95-98) L 12/10/17 15:16 PT/INR, D-dimer PT 12.2 Seconds (9.4-12.1) H 12/11/17 08:30 Consult Discharge Plan - Plan Referrals: NONE,PCP [Primary Care Provider] - Prescriptions: Ondansetron ODT [Zofran ODT] 4 mg SL Q4HR PRN #24 tab.rapdis PRN Reason: Nausea Ipratropium/Albuterol Neb [Duoneb] 3 ml IH Q6HR 4 Days #16 vial.neb Budesonide Neb [Pulmicort Neb] 0.5 mg IH BIDR 4 Days #8 ampul.neb LORazepam Oral Conc [Ativan Oral Conc] 0.5 mg SL Q2H PRN 4 Days #15 mls PRN Reason: Anxiety MORPHINE SUL Oral CONC [Roxanol Oral Conc] 5 mg PO Q4H PRN 4 Days #15 ml PRN Reason: Pain/Dyspnea Sennosides/Docusate Sodium [Senna Plus] 1 each PO BID 4 Days #8 tablet - Attending Attestation I performed an independent interview and exam of this patient. I agree with the findings, assessment, and plan of Dr. Macias, internal medicine resident. Patient states her breathing is improved. She is wearing BiPAP when resting or sleeping. She was mildly hyperkalemic today but otherwise states she feels well. Patient is currently being arranged to go home under the care of hospice. Both patient and family are in their decision. We are making arrangements for discharge to home today. Exam: No acute distress. She is wearing high flow oxygen. Skin is warm and dry Show diminished breath sounds at the bases bilaterally no wheezes. Regular rate and rhythm Diminished soft nontender Ext show trace edema Neurological nonfocal I discussed the case with the son at the bedside today. We are working towards discharge under hospice/comfort care <Urbano Macias - Last Filed: 12/18/17 14:22> Hospitalist Progress Note - Encounter Date of Encounter: 12/18/17 Time of Encounter: 08:55 - Subjective Interval History: Patient was seen and examined at bedside; reports that her breathing has improved. Plan is to discharge patient later today. She has no complaints at this time. - Exam Vitals: Temp Pulse Resp BP Pulse Ox 98 F 80 17 127/68 97 12/18/17 07:41 12/18/17 07:41 12/18/17 07:41 12/18/17 07:41 12/18/17 07:41 Exam: General: Well nourished, well developed. Head: Atraumatic, normocephalic Heart: RRR, no murmurs rubs or gallops Lungs: CTAB, no wheezes, rales, or rhonchi Abdomen: Soft, nontender Neuro: No focal deficits Extremities: Pulses 2/4 throughout. No edema Skin: dry, intact - Assessment and Plan (1) Acute respiratory failure with hypoxia and hypercarbia Current Visit: Yes Status: Acute Assessment and Plan: Underlying COPD/emphasematous changes on CXR - CT Chest/abd/pelvis shows bibasilar consolidations, atelectasis L>R (her dependent side) - ECHO 65%, CXR shows no pulm edema Plan: - Prednisone 40 mg by mouth daily - DuoNeb 3 mL inhaled every 4 when necessary - Currently satting 97% on nasal cannula - Morphine SL prn dyspnea added (12/15) (2) Pneumonia Current Visit: Yes Status: Acute Assessment and Plan: - LLL PNA with identified organism S pneumoniae (12/12) - Completed 10 day course of Levaquin (3) UTI (urinary tract infection) Current Visit: Yes Status: Resolved Assessment and Plan: Resolved - Patient presented with leukocytosis, hypotension - UA early in hospital course shows turbid urine with pH of 9.0, moderate blood , leukocyte esterase and urine bacteria - Urine CX and blood cultures were collected at [facility] - Urine CX has grown Klebsiella - CT abd/pelvis possible cystitis (fat stranding ) (4) Acute renal failure Current Visit: Yes Status: Acute Assessment and Plan: - Pt has CKD Stage 4 - Appears to be stable at this time - Nephrology has signed off (5) COPD (chronic obstructive pulmonary disease) Current Visit: Yes Status: Chronic Assessment and Plan: Known history of COPD - CXR shows emphysematous changes - Continue duoneb eron, o2 titration (6) Coronary artery disease Current Visit: Yes Status: Acute Assessment and Plan: - Known hx of CAD - ASA 325 mg by mouth daily - Lopressor 5 mg IVP every 6 when necessary (7) Anxiety Current Visit: Yes Status: Chronic Assessment and Plan: - Ativan SL prn comfort (12/15) with recent change to palliative care plan (8) Diabetes Current Visit: Yes Status: Acute Assessment and Plan: Low corrective SSI (9) Aneurysm Current Visit: Yes Status: Acute Assessment and Plan: - Abdomen CT incidentally found infrarenal aortic aneurysm measuring 2.9cm - As per guidelines, f/u with PCP every 5 yrs to manage (10) DVT prophylaxis Current Visit: Yes Status: Acute Assessment and Plan: - SubQ Heparin - Time Spent with Patient Total time spent is greater than 50% in coordination of care (as documented) at patient's floor/unit and/or counseling patient: less than 15 minutes Internal Medicine: Result - Labs CBC & Chem 7: 12/18/17 08:58 12/18/17 08:58 Labs: Short CBC 12/17/17 Range/Units 09:35 WBC 17.5 H (4.3-11.1) K/mcL Hgb 11.1 L (11.5-15.4) g/dL Hct 37.0 (35.3-44.9) % Plt Count 298 (140-400) K/mcL Neutrophils # 14.2 H (1.6-8.9) K/mcL BMP 12/17/17 09:35 Sodium 137 Potassium 5.1 Chloride 107 Carbon Dioxide 24 BUN 34 H Creatinine 2.07 H Glucose 147 H Calcium 8.2 L - ABG Interpretation ABG results: ABG ABG pH 7.31 pH Units (7.32-7.45) L 12/10/17 15:16 ABG pCO2 46 mmHg (35-45) H 12/10/17 15:16 ABG pO2 71 mmHg (85-104) L 12/10/17 15:16 ABG O2 Saturation 92 % (95-98) L 12/10/17 15:16 PT/INR, D-dimer PT 12.2 Seconds (9.4-12.1) H 12/11/17 08:30 <UlloaFili - Last Filed: 12/18/17 12:42> (1) Sepsis Qualifiers: Sepsis type: sepsis due to unspecified organism Qualified Code(s): A41.9 - Sepsis, unspecified organism (2) Pancreatitis Qualifiers: Chronicity: acute Pancreatitis type: other Acute pancreatitis complication: no infection or necrosis Qualified Code(s): K85.80 - Other acute pancreatitis without necrosis or infection (3) UTI (urinary tract infection) Qualifiers: Urinary tract infection type: acute cystitis Hematuria presence: with hematuria Qualified Code(s): N30.01 - Acute cystitis with hematuria (4) Coronary artery disease Qualifiers: Coronary Disease-Associated Artery/Lesion type: [place] artery [place] vs. transplanted heart: [place] heart Associated angina: without angina Qualified Code(s): I25.10 - Atherosclerotic heart disease of [place] coronary artery without angina pectoris (6) COPD (chronic obstructive pulmonary disease) Qualifiers: COPD type: emphysema Emphysema type: panlobular Qualified Code(s): J43.1 - Panlobular emphysema (8) Acute renal failure Qualifiers: Acute renal failure type: unspecified Qualified Code(s): N17.9 - Acute kidney failure, unspecified (10) Respiratory failure Qualifiers: Chronicity: acute Respiratory failure complication: hypoxia and hypercapnia Qualified Code(s): J96.01 - Acute respiratory failure with hypoxia; J96.02 - Acute respiratory failure with hypercapnia (11) Pneumonia Qualifiers: Pneumonia type: due to Pneumococcus Laterality: bilateral Lung location: lower lobe of lung Qualified Code(s): J13 - Pneumonia due to Streptococcus pneumoniae <Urbano Macias - Last Filed: 12/18/17 14:22> (2) Pneumonia Qualifiers: Pneumonia type: due to unspecified organism Laterality: bilateral Lung location: lower lobe of lung Qualified Code(s): J18.1 - Lobar pneumonia, unspecified organism (3) UTI (urinary tract infection) Qualifiers: Urinary tract infection type: acute cystitis Hematuria presence: with hematuria Qualified Code(s): N30.01 - Acute cystitis with hematuria (4) Acute renal failure Qualifiers: Acute renal failure type: unspecified Qualified Code(s): N17.9 - Acute kidney failure, unspecified (5) COPD (chronic obstructive pulmonary disease) Qualifiers: COPD type: emphysema Emphysema type: panlobular Qualified Code(s): J43.1 - Panlobular emphysema (6) Coronary artery disease Qualifiers: Coronary Disease-Associated Artery/Lesion type: [place] artery [place] vs. transplanted heart: [place] heart Associated angina: without angina Qualified Code(s): I25.10 - Atherosclerotic heart disease of [place] coronary artery without angina pectoris
[2017-12-18 09:08] LABS: Basophils # 0.1 K/mcL (0.0-0.2); Basophils % 0.4 %; Eosinophils % 0.1 %; Hematocrit 31.9 % (35.3-44.9); Hemoglobin 9.8 g/dL (11.5-15.4); Immature Granulocytes % 2.9 % (0-4); Lymphocytes # 1.2 K/mcL (0.6-4.6); Lymphocytes % 8.5 %; Mean Corpuscular HGB Conc 30.7 g/dL (31.6-35.5); Mean Corpuscular Hemoglobin 29.9 pg (28.0-33.3); Mean Corpuscular Volume 97.3 fL (83.0-100.0); Mean Platelet Volume 10.8 fL (9.4-12.4); Monocytes # 0.7 K/mcL (0.0-1.3); Monocytes % 4.9 %; Neutrophils # 11.7 K/mcL (1.6-8.9); Platelet Count 268 K/mcL (140-400); Red Blood Count 3.28 M/mcL (3.82-4.97); Red Cell Distribution Width 15.9 % (11.5-14.5); Segmented Neutrophils % 83.2 %
[2017-12-18 09:26] LABS: Calcium 8.2 mg/dL (8.6-10.3); Potassium 5.6 mEq/L (3.5-5.1)
--- NOTE | 2017-12-18 14:44 | Discharge Summary ---
<Urbano Macias - Last Filed: 12/18/17 14:50> Orders not resulted at time of discharge: Pending orders 12/13/17 07:23 Culture,Sputum with Gram Stain [RM] Stat Date of Encounter: 12/18/17 Time of Encounter: 10:00 - Discharge Diagnosis (1) Acute respiratory failure with hypoxia and hypercarbia Priority: Primary Status: Acute (2) Pneumonia Priority: Secondary Status: Resolved Qualifiers: Pneumonia type: due to unspecified organism Laterality: bilateral Lung location: lower lobe of lung Qualified Code(s): J18.1 - Lobar pneumonia, unspecified organism (3) UTI (urinary tract infection) Priority: Secondary Status: Resolved Qualifiers: Urinary tract infection type: acute cystitis Hematuria presence: with hematuria Qualified Code(s): N30.01 - Acute cystitis with hematuria (4) Acute renal failure Priority: Secondary Status: Acute Qualifiers: Acute renal failure type: unspecified Qualified Code(s): N17.9 - Acute kidney failure, unspecified (5) COPD (chronic obstructive pulmonary disease) Priority: Secondary Status: Chronic Qualifiers: COPD type: emphysema Emphysema type: panlobular Qualified Code(s): J43.1 - Panlobular emphysema (6) Coronary artery disease Priority: Secondary Status: Acute Qualifiers: Coronary Disease-Associated Artery/Lesion type: [place] artery [place] vs. transplanted heart: [place] heart Associated angina: without angina Qualified Code(s): I25.10 - Atherosclerotic heart disease of [place] coronary artery without angina pectoris (7) Anxiety Priority: Secondary Status: Chronic (8) Diabetes Priority: Secondary Status: Acute Qualifiers: Qualified Code(s): E11.9 - Type 2 diabetes mellitus without complications (9) Aneurysm Priority: Secondary Status: Acute (10) DVT prophylaxis Priority: Secondary Status: Acute Hospital course: Ms. Morales is a 67 year old female with a PMH of arthritis, COPD, coronary artery disease, GERD, hyperlipidemia, hypertension, and osteoporosis who presented to [facility] ED on 12/08/17 with chief complaint of abdominal pain. She reported chronic abdominal pain secondary to abdominal hernias, but stated that in the 2 weeks prior to admission, she had worsening abdominal pain along with N /V/D. She reported a poor appetite secondary to abdominal pain. This pain was exacerbated by movement and coughing. She reported having been treated for a UTI shortly before admission with macrobid. Urinalysis demonstrated UTI. She had leukocytosis, tachycardia, and hypotension on arrival. Her O2 sat was 86 percent. She was admitted for sepsis and UTI. She was diagnosed with pancreatitis with a lipase of 164. She developed acute respiratory failure, and imaging was obtained. A CT scan of the chest demonstrated bibasilar consolidations. Strep pneumo antigen was positive, and she was diagnosed with pneumonia. She was started on steroids and duonebs. She completed a 10 day course of Levaquin. Palliative care was consulted on 12/15 due to worsening clinical status. She was started on morphine for dyspnea and Ativan for anxiety. Patient was seen and examined at bedside this morning; She reports a significant improvement in her breathing. She is wearing BiPAP when resting/ sleeping. Patient will be discharged home on hospice. - Time Spent with Patient Total time spent providing and/or coordinating discharge services: Greater than 30 minutes (42 minutes) - Discharge Medications Prescriptions: Ondansetron ODT [Zofran ODT] 4 mg SL Q4HR PRN #24 tab.rapdis PRN Reason: Nausea Ipratropium/Albuterol Neb [Duoneb] 3 ml IH Q6HR 4 Days #16 vial.neb Budesonide Neb [Pulmicort Neb] 0.5 mg IH BIDR 4 Days #8 ampul.neb LORazepam Oral Conc [Ativan Oral Conc] 0.5 mg SL Q2H PRN 4 Days #15 mls PRN Reason: Anxiety MORPHINE SUL Oral CONC [Roxanol Oral Conc] 5 mg PO Q4H PRN 4 Days #15 ml PRN Reason: Pain/Dyspnea Sennosides/Docusate Sodium [Senna Plus] 1 each PO BID 4 Days #8 tablet Home Medications: Albuterol Sulfate [Ventolin Hfa] 2 puff IH Q6H PRN 10/07/17 [History] Aspirin [Ecotrin] 325 mg PO DAILY 10/07/17 [History] Furosemide [Lasix] 20 mg PO DAILY 10/07/17 [History] Isosorbide MONOnitrate (24 HR) [Imdur] 60 mg PO DAILY 10/07/17 [History] Montelukast Sodium [Singulair] 10 mg PO HS 10/07/17 [History] Omeprazole [PriLOSEC] 40 mg PO DAILY 10/07/17 [History] diazePAM [Valium] 5 mg PO TID PRN 10/07/17 [History] Diltiazem HCl [Cardizem Cd] 360 mg PO DAILY 12/09/17 [History] Budesonide Neb [Pulmicort Neb] 0.5 mg IH BIDR 4 Days #8 ampul.neb 12/17/17 [Rx] Ipratropium/Albuterol Neb [Duoneb] 3 ml IH Q6HR 4 Days #16 vial.neb 12/17/17 [Rx ] LORazepam Oral Conc [Ativan Oral Conc] 0.5 mg SL Q2H PRN 4 Days #15 mls [Rx] MORPHINE SUL Oral CONC [Roxanol Oral Conc] 5 mg PO Q4H PRN 4 Days #15 ml [Rx] Ondansetron ODT [Zofran ODT] 4 mg SL Q4HR PRN #24 tab.rapdis 12/17/17 [Rx] Sennosides/Docusate Sodium [Senna Plus] 1 each PO BID 4 Days #8 tablet 12/17/17 [Rx] Allergies/Adverse Reactions: 3 Allergy/AdvReac Type Severity Reaction Status Date / Time iodine AdvReac See Verified 10/07/17 14:34 Comments Date of admission: 12/09/17 16:57 Primary care physician: PCP NONE Consults: 12/09/17 12:55 Consult to Nephrology [CONS] Routine Consulting Provider: [facility]/LAVERN/CHRISTIANA/CONRADO Reason for Consult: admitted for sepsis 2/2 uti vs pancreatitis; volume depleted on presentation, has seen Dr. 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 Saturates around 88-92 on bipap (toleraing facemask version) CT shows atelectasis and bibasilar consolidation L lower lobe>R; kidneys have tolerated spot diuresis (creat below baseline), receiving zosyn/ levaquin/vanc, steroid Time Notified: 14:00 Call Completed: Yes 12/15/17 13:24 Consult to Palliative Care [CONS] Routine Comment: Consulting Provider: Palliative Care [facility] Reason for Consult: End stage resp failure Time Notified: 13:24 Call Completed: Yes Discharging clinician: Urbano Macias Anticipated date of discharge: 12/18/17 - Constitutional Vitals: Temp Pulse Resp BP Pulse Ox 98.2 F 80 16 133/82 95 12/18/17 11:16 12/18/17 11:16 12/18/17 11:16 12/18/17 11:16 12/18/17 11:16 Exam: General: Well nourished, well developed. Head: Atraumatic, normocephalic Heart: RRR, no murmurs rubs or gallops Lungs: CTAB, no wheezes, rales, or rhonchi Abdomen: Soft, nontender Neuro: No focal deficits Extremities: Pulses 2/4 throughout. No edema Skin: dry, intact - Patient Status Disposition: Home, Self-Care Condition: Fair Overall status at discharge: patient is progressing back to baseline - Discharge Instructions Instructions: Lorazepam (By mouth), Ipratropium (By breathing), Laxative, Stimulant (By mouth), Morphine, Rapid Release (By mouth), Ondansetron (By mouth) , Budesonide (By breathing), Acute Kidney Injury (DC), Urinary Tract Infection in Women (DC), Hospice Care (GEN), Chronic Obstructive Pulmonary Disease (DC), Pneumonia (DC) Follow Up With: NONE,PCP [Primary Care Provider] - - Diet and Activity Activity: increase activity as tolerated Diet: advance to your usual diet <Fili Ulloa R - Last Filed: 12/18/17 16:39> Orders not resulted at time of discharge: Pending orders 12/13/17 07:23 Culture,Sputum with Gram Stain [RM] Stat Date of Encounter: 12/18/17 - Discharge Diagnosis (1) Sepsis Status: Acute Qualifiers: Sepsis type: sepsis due to unspecified organism Qualified Code(s): A41.9 - Sepsis, unspecified organism (2) Pancreatitis Status: Acute Qualifiers: Chronicity: acute Pancreatitis type: other Acute pancreatitis complication: no infection or necrosis Qualified Code(s): K85.80 - Other acute pancreatitis without necrosis or infection (3) UTI (urinary tract infection) Status: Resolved Qualifiers: Urinary tract infection type: acute cystitis Hematuria presence: with hematuria Qualified Code(s): N30.01 - Acute cystitis with hematuria (4) Coronary artery disease Status: Acute Qualifiers: Coronary Disease-Associated Artery/Lesion type: [place] artery [place] vs. transplanted heart: [place] heart Associated angina: without angina Qualified Code(s): I25.10 - Atherosclerotic heart disease of [place] coronary artery without angina pectoris (5) Anxiety Status: Chronic (6) COPD (chronic obstructive pulmonary disease) Status: Chronic Qualifiers: COPD type: emphysema Emphysema type: panlobular Qualified Code(s): J43.1 - Panlobular emphysema (7) Elevated troponin Status: Acute (8) Acute renal failure Status: Acute Qualifiers: Acute renal failure type: unspecified Qualified Code(s): N17.9 - Acute kidney failure, unspecified (9) Hypernatremia Status: Acute (10) Respiratory failure Status: Acute Qualifiers: Chronicity: acute Respiratory failure complication: hypoxia and hypercapnia Qualified Code(s): J96.01 - Acute respiratory failure with hypoxia ; J96.02 - Acute respiratory failure with hypercapnia (11) Pneumonia Status: Acute Qualifiers: Pneumonia type: due to Pneumococcus Laterality: bilateral Lung location: lower lobe of lung Qualified Code(s): J13 - Pneumonia due to Streptococcus pneumoniae (12) Acute on chronic diastolic (congestive) heart failure Status: Acute Hospital course: Ms. Morales is a 67 year old female - Time Spent with Patient Total time spent providing and/or coordinating discharge services: Date of admission: 12/09/17 16:57 Primary care physician: PCP NONE Consults: 12/09/17 12:55 Consult to Nephrology [CONS] Routine Consulting Provider: Rocio Robbins/LAVERN/CHRISTIANA/CONRADO Reason for Consult: admitted for sepsis 2/2 uti vs pancreatitis; volume depleted on presentation, has seen Dr. 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 Saturates around 88-92 on bipap (toleraing facemask version) CT shows atelectasis and bibasilar consolidation L lower lobe>R; kidneys have tolerated spot diuresis (creat below baseline), receiving zosyn/ levaquin/vanc, steroid Time Notified: 14:00 Call Completed: Yes 12/15/17 13:24 Consult to Palliative Care [CONS] Routine Comment: Consulting Provider: Palliative Care [facility] Reason for Consult: End stage resp failure Time Notified: 13:24 Call Completed: Yes - Constitutional Vitals: Temp Pulse Resp BP Pulse Ox 98.2 F 80 16 133/82 91 12/18/17 11:16 12/18/17 11:16 12/18/17 16:08 12/18/17 11:16 12/18/17 16:08 - Attending Attestation See my addendum and exam documeneted on today's earlier progress note. Pt arranged to go home under hospice care. I discussed case with son at bedside. I agree with the findings, assessment and pplan of Dr. Macias, Internal Medicine Resident. 41 min spent on dc/coor of care. Condition on dc: gaurded
--- NOTE | 2017-12-18 15:06 | Physician Discharge Referral ---
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 - Diagnosis (1) Acute respiratory failure with hypoxia and hypercarbia Priority: Primary Status: Acute (2) Pneumonia Priority: Secondary Status: Resolved (3) UTI (urinary tract infection) Priority: Secondary Status: Resolved (4) Acute renal failure Priority: Secondary Status: Acute (5) COPD (chronic obstructive pulmonary disease) Priority: Secondary Status: Chronic (6) Coronary artery disease Priority: Secondary Status: Acute (7) Anxiety Priority: Secondary Status: Chronic (8) Diabetes Priority: Secondary Status: Acute (9) Aneurysm Priority: Secondary Status: Acute (10) DVT prophylaxis Priority: Secondary Status: Acute - Respiratory Orders Smoking Cessation: Smoking cessation has been advised. For more information, call the [place] Tobacco Quit Line at 0-134-KBDE-NOW. - Transfer Medications Prescriptions: Ondansetron ODT [Zofran ODT] 4 mg SL Q4HR PRN #24 tab.rapdis PRN Reason: Nausea Ipratropium/Albuterol Neb [Duoneb] 3 ml IH Q6HR 4 Days #16 vial.neb Budesonide Neb [Pulmicort Neb] 0.5 mg IH BIDR 4 Days #8 ampul.neb LORazepam Oral Conc [Ativan Oral Conc] 0.5 mg SL Q2H PRN 4 Days #15 mls PRN Reason: Anxiety MORPHINE SUL Oral CONC [Roxanol Oral Conc] 5 mg PO Q4H PRN 4 Days #15 ml PRN Reason: Pain/Dyspnea Sennosides/Docusate Sodium [Senna Plus] 1 each PO BID 4 Days #8 tablet Home Medications: Albuterol Sulfate [Ventolin Hfa] 2 puff IH Q6H PRN 10/07/17 [History] Aspirin [Ecotrin] 325 mg PO DAILY 10/07/17 [History] Furosemide [Lasix] 20 mg PO DAILY 10/07/17 [History] Isosorbide MONOnitrate (24 HR) [Imdur] 60 mg PO DAILY 10/07/17 [History] Montelukast Sodium [Singulair] 10 mg PO HS 10/07/17 [History] Omeprazole [PriLOSEC] 40 mg PO DAILY 10/07/17 [History] diazePAM [Valium] 5 mg PO TID PRN 10/07/17 [History] Diltiazem HCl [Cardizem Cd] 360 mg PO DAILY 12/09/17 [History] Budesonide Neb [Pulmicort Neb] 0.5 mg IH BIDR 4 Days #8 ampul.neb 12/17/17 [Rx] Ipratropium/Albuterol Neb [Duoneb] 3 ml IH Q6HR 4 Days #16 vial.neb 12/17/17 [Rx ] LORazepam Oral Conc [Ativan Oral Conc] 0.5 mg SL Q2H PRN 4 Days #15 mls [Rx] MORPHINE SUL Oral CONC [Roxanol Oral Conc] 5 mg PO Q4H PRN 4 Days #15 ml [Rx] Ondansetron ODT [Zofran ODT] 4 mg SL Q4HR PRN #24 tab.rapdis 12/17/17 [Rx] Sennosides/Docusate Sodium [Senna Plus] 1 each PO BID 4 Days #8 tablet 12/17/17 [Rx] Allergies/Adverse Reactions: 3 Allergy/AdvReac Type Severity Reaction Status Date / Time iodine AdvReac See Verified 10/07/17 14:34 Comments Certification: Further, I certify that my clinical findings support that this patient is homebound (i.e. absences from home require considerable and taxing effort and are for medical reasons or pentec[employer] services or infrequently or short duration when for other reasons) because: Homebound Reason: Severity of cardiac or pulmonary status limits activity tolerance Attestation: My signature below is to certify that this patient is under my care and that I, or nurse practitioner, or a physician's administrative sales assistant working with me, has a face-to -face encounter with this patient.
[2017-12-18] MEDS: Ipratropium/Albuterol Neb 3 ML IH PRN (16:05)
[2017-12-19] MEDS: Ipratropium/Albuterol Neb 3 ML IH SCH ×6 (04:22→23:34)
--- NOTE | 2017-12-19 08:04 | Internal Med Progress Note ---
<Urbano Macias - Last Filed: 12/19/17 12:07> Hospitalist Progress Note - Encounter Date of Encounter: 12/19/17 Time of Encounter: 11:00 - Subjective Interval History: Patient was seen and examined at bedside; reports no change in her symptoms. Family was in the room, and patient's goals of care were discussed with both myself and Dr. Ulloa. The patient's family expressed concerns about sending the patient home on hospice. Patient's clinical condition and prognosis were discussed with the family. Due to the patient's multiple comorbidities and worsening fluid overload/renal status, the patient's overall clinical condition has been decling. The patient has been adamant throughout her visit that she does not want aggressive treatment at this time. Patient's family says that she just wants to go home and get better. Due to patient's declining kidney function, the use of diuresis is restricted at this time. We all agreed on consulting nephrology to get their opinion on starting the patient on dialysis. - Exam Vitals: Temp Pulse Resp BP Pulse Ox 98.0 F 88 18 139/66 89 12/19/17 01:01 12/19/17 01:01 12/19/17 04:22 12/19/17 01:01 12/19/17 04:22 Exam: General: Well nourished, well developed. Head: Atraumatic, normocephalic Heart: RRR, no murmurs rubs or gallops Lungs: CTAB, no wheezes, rales, or rhonchi Abdomen: Soft, nontender Neuro: No focal deficits Extremities: Pulses 2/4 throughout. No edema Skin: dry, intact - Assessment and Plan (1) Acute respiratory failure with hypoxia and hypercarbia Current Visit: Yes Status: Acute Assessment and Plan: Underlying COPD/emphasematous changes on CXR - CT Chest/abd/pelvis shows bibasilar consolidations, atelectasis L>R (her dependent side) - ECHO 65%, CXR shows no pulm edema Plan: - Prednisone 40 mg by mouth daily - DuoNeb 3 mL inhaled every 4 when necessary - Currently satting 97% on nasal cannula - Morphine SL prn dyspnea added (12/15) (2) Pneumonia Current Visit: Yes Status: Resolved Assessment and Plan: - LLL PNA with identified organism S pneumoniae (12/12) - Completed 10 day course of Levaquin (3) UTI (urinary tract infection) Current Visit: Yes Status: Resolved Assessment and Plan: Resolved - Patient presented with leukocytosis, hypotension - UA early in hospital course shows turbid urine with pH of 9.0, moderate blood , leukocyte esterase and urine bacteria - Urine CX and blood cultures were collected at [facility] - Urine CX has grown Klebsiella - CT abd/pelvis possible cystitis (fat stranding ) (4) Acute renal failure Current Visit: Yes Status: Acute Assessment and Plan: - Pt has CKD Stage 4 - We will re-consult nephrology to get their opinion on starting this patient on dialysis. (5) COPD (chronic obstructive pulmonary disease) Current Visit: Yes Status: Chronic Assessment and Plan: Known history of COPD - CXR shows emphysematous changes - Continue duoneb eron, o2 titration (6) Coronary artery disease Current Visit: Yes Status: Acute Assessment and Plan: - Known hx of CAD - ASA 325 mg by mouth daily - Lopressor 5 mg IVP every 6 when necessary (7) Anxiety Current Visit: Yes Status: Chronic Assessment and Plan: - Ativan SL prn comfort (12/15) with recent change to palliative care plan (8) Diabetes Current Visit: Yes Status: Acute Assessment and Plan: Low corrective SSI (9) Aneurysm Current Visit: Yes Status: Acute Assessment and Plan: - Abdomen CT incidentally found infrarenal aortic aneurysm measuring 2.9cm - As per guidelines, f/u with PCP every 5 yrs to manage (10) DVT prophylaxis Current Visit: Yes Status: Acute Assessment and Plan: - SubQ Heparin - Time Spent with Patient Total time spent is greater than 50% in coordination of care (as documented) at patient's floor/unit and/or counseling patient: Internal Medicine: Result - Labs CBC & Chem 7: 12/18/17 08:58 12/18/17 08:58 Labs: Short CBC 12/18/17 Range/Units 08:58 WBC 14.0 H (4.3-11.1) K/mcL Hgb 9.8 L (11.5-15.4) g/dL Hct 31.9 L (35.3-44.9) % Plt Count 268 (140-400) K/mcL Neutrophils # 11.7 H (1.6-8.9) K/mcL BMP 12/18/17 08:58 Sodium 132 L Potassium 5.6 H Chloride 107 Carbon Dioxide 23 BUN 40 H Creatinine 2.33 H Glucose 287 H Calcium 8.2 L - ABG Interpretation ABG results: ABG ABG pH 7.31 pH Units (7.32-7.45) L 12/10/17 15:16 ABG pCO2 46 mmHg (35-45) H 12/10/17 15:16 ABG pO2 71 mmHg (85-104) L 12/10/17 15:16 ABG O2 Saturation 92 % (95-98) L 12/10/17 15:16 PT/INR, D-dimer PT 12.2 Seconds (9.4-12.1) H 12/11/17 08:30 Consult Discharge Plan - Plan Instructions: Lorazepam (By mouth), Ipratropium (By breathing), Laxative, Stimulant (By mouth), Morphine, Rapid Release (By mouth), Ondansetron (By mouth) , Budesonide (By breathing), Acute Kidney Injury (DC), Urinary Tract Infection in Women (DC), Hospice Care (GEN), Chronic Obstructive Pulmonary Disease (DC), Pneumonia (DC) Referrals: NONE,PCP [Primary Care Provider] - Prescriptions: Ondansetron ODT [Zofran ODT] 4 mg SL Q4HR PRN #24 tab.rapdis PRN Reason: Nausea Ipratropium/Albuterol Neb [Duoneb] 3 ml IH Q6HR 4 Days #16 vial.neb Budesonide Neb [Pulmicort Neb] 0.5 mg IH BIDR 4 Days #8 ampul.neb LORazepam Oral Conc [Ativan Oral Conc] 0.5 mg SL Q2H PRN 4 Days #15 mls PRN Reason: Anxiety MORPHINE SUL Oral CONC [Roxanol Oral Conc] 5 mg PO Q4H PRN 4 Days #15 ml PRN Reason: Pain/Dyspnea Sennosides/Docusate Sodium [Senna Plus] 1 each PO BID 4 Days #8 tablet <Fili Ulloa - Last Filed: 12/19/17 13:46> Hospitalist Progress Note - Encounter Date of Encounter: 12/19/17 - Exam Vitals: Temp Pulse Resp BP Pulse Ox 98.2 F 106 20 133/89 90 12/19/17 08:02 12/19/17 08:02 12/19/17 11:32 12/19/17 08:02 12/19/17 11:32 - Assessment and Plan (1) Sepsis Current Visit: Yes Status: Acute (2) Pancreatitis Current Visit: Yes Status: Acute (3) UTI (urinary tract infection) Current Visit: Yes Status: Resolved (4) Coronary artery disease Current Visit: Yes Status: Acute (5) Anxiety Current Visit: Yes Status: Chronic (6) COPD (chronic obstructive pulmonary disease) Current Visit: Yes Status: Chronic (7) Elevated troponin Current Visit: Yes Status: Acute (8) Acute renal failure Current Visit: Yes Status: Acute (9) Hypernatremia Current Visit: Yes Status: Acute (10) Respiratory failure Current Visit: Yes Status: Acute (11) Pneumonia Current Visit: Yes Status: Acute (12) Acute on chronic diastolic (congestive) heart failure Current Visit: Yes Status: Acute - Time Spent with Patient Total time spent is greater than 50% in coordination of care (as documented) at patient's floor/unit and/or counseling patient: Internal Medicine: Result - Labs CBC & Chem 7: 12/19/17 13:06 12/18/17 08:58 Labs: Short CBC 12/19/17 Range/Units 13:06 WBC 19.1 H (4.3-11.1) K/mcL Hgb 10.8 L (11.5-15.4) g/dL Hct 36.1 (35.3-44.9) % Plt Count 263 (140-400) K/mcL Neutrophils # 16.6 H (1.6-8.9) K/mcL - ABG Interpretation ABG results: ABG ABG pH 7.31 pH Units (7.32-7.45) L 12/10/17 15:16 ABG pCO2 46 mmHg (35-45) H 12/10/17 15:16 ABG pO2 71 mmHg (85-104) L 12/10/17 15:16 ABG O2 Saturation 92 % (95-98) L 12/10/17 15:16 PT/INR, D-dimer PT 12.2 Seconds (9.4-12.1) H 12/11/17 08:30 - Attending Attestation I performed an independent interview and exam of this patient. I was present during Dr. Maicas's evaluation. I agree with his findings, assessment and plan. Patient has not improved despite her treatment. Her creatinine has worsened, therefore Lasix would be risky. Family states they are not ready for patient to go to hospice and would like to have another opinion regarding potential dialysis. We will reconsult nephrology. All else as outlined above. Gen: NAD, AAOx2 Skin warm and dry Lungs crackles at bases Ht RRR Abd soft +BS, NT Ext tr edema Neuro non focal <Urbano Macias - Last Filed: 12/19/17 12:07> (2) Pneumonia Qualifiers: Pneumonia type: due to unspecified organism Laterality: bilateral Lung location: lower lobe of lung Qualified Code(s): J18.1 - Lobar pneumonia, unspecified organism (3) UTI (urinary tract infection) Qualifiers: Urinary tract infection type: acute cystitis Hematuria presence: with hematuria Qualified Code(s): N30.01 - Acute cystitis with hematuria (4) Acute renal failure Qualifiers: Acute renal failure type: unspecified Qualified Code(s): N17.9 - Acute kidney failure, unspecified (5) COPD (chronic obstructive pulmonary disease) Qualifiers: COPD type: emphysema Emphysema type: panlobular Qualified Code(s): J43.1 - Panlobular emphysema (6) Coronary artery disease Qualifiers: Coronary Disease-Associated Artery/Lesion type: [place] artery [place] vs. transplanted heart: [place] heart Associated angina: without angina Qualified Code(s): I25.10 - Atherosclerotic heart disease of [place] coronary artery without angina pectoris <iFli Ulloa - Last Filed: 12/19/17 13:46> (1) Sepsis Qualifiers: Sepsis type: sepsis due to unspecified organism Qualified Code(s): A41.9 - Sepsis, unspecified organism (2) Pancreatitis Qualifiers: Chronicity: acute Pancreatitis type: other Acute pancreatitis complication: no infection or necrosis Qualified Code(s): K85.80 - Other acute pancreatitis without necrosis or infection (3) UTI (urinary tract infection) Qualifiers: Urinary tract infection type: acute cystitis Hematuria presence: with hematuria Qualified Code(s): N30.01 - Acute cystitis with hematuria (4) Coronary artery disease Qualifiers: Coronary Disease-Associated Artery/Lesion type: [place] artery [place] vs. transplanted heart: [place] heart Associated angina: without angina Qualified Code(s): I25.10 - Atherosclerotic heart disease of [place] coronary artery without angina pectoris (6) COPD (chronic obstructive pulmonary disease) Qualifiers: COPD type: emphysema Emphysema type: panlobular Qualified Code(s): J43.1 - Panlobular emphysema (8) Acute renal failure Qualifiers: Acute renal failure type: unspecified Qualified Code(s): N17.9 - Acute kidney failure, unspecified (10) Respiratory failure Qualifiers: Chronicity: acute Respiratory failure complication: hypoxia and hypercapnia Qualified Code(s): J96.01 - Acute respiratory failure with hypoxia; J96.02 - Acute respiratory failure with hypercapnia (11) Pneumonia Qualifiers: Pneumonia type: due to Pneumococcus Laterality: bilateral Lung location: lower lobe of lung Qualified Code(s): J13 - Pneumonia due to Streptococcus pneumoniae
[2017-12-19] MEDS: Nystatin SUSP 5 ML UD.LIQ PO SCH ×4 (09:17→21:56)
[2017-12-19] MEDS: Aspirin Enteric Coated 325 MG Tablet PO SCH (09:17)
[2017-12-19] MEDS: *HR* Heparin 5,000 UNIT/ML VIAL SQ SCH ×3 (09:17→23:43)
[2017-12-19] MEDS: predniSONE 20 MG TABLET PO SCH (09:17)
[2017-12-19] MEDS: Insulin LISPRO 300 UNITS/3 ML VIAL SQ SCH ×4 (09:18→21:57)
[2017-12-19] MEDS: Sennosides/Docusate Sodium TABLET PO SCH ×2 (09:18→21:58)
[2017-12-19 13:34] LABS: Basophils # 0.1 K/mcL (0.0-0.2); Basophils % 0.3 %; Eosinophils # 0.2 K/mcL (0.0-0.6); Eosinophils % 0.8 %; Hematocrit 36.1 % (35.3-44.9); Hemoglobin 10.8 g/dL (11.5-15.4); Immature Granulocytes % 2.1 % (0-4); Lymphocytes # 0.8 K/mcL (0.6-4.6); Lymphocytes % 4.4 %; Mean Corpuscular HGB Conc 29.9 g/dL (31.6-35.5); Mean Corpuscular Hemoglobin 29.6 pg (28.0-33.3); Mean Corpuscular Volume 98.9 fL (83.0-100.0); Mean Platelet Volume 11.1 fL (9.4-12.4); Monocytes % 5.4 %; Neutrophils # 16.6 K/mcL (1.6-8.9); Platelet Count 263 K/mcL (140-400); Red Blood Count 3.65 M/mcL (3.82-4.97); Red Cell Distribution Width 15.8 % (11.5-14.5)
[2017-12-19 13:55] LABS: Calcium 8.2 mg/dL (8.6-10.3); Potassium 5.3 mEq/L (3.5-5.1)
[2017-12-19] MEDS: *HR* LORazepam Oral Conc 2 MG/ML SL PRN (14:32)
--- NOTE | 2017-12-19 15:15 | Nephrology Progress Note ---
Date of Encounter: 12/19/17 Time of Encounter: 15:00 - Assessment and Plan (1) Acute respiratory failure with hypoxia and hypercarbia Current Visit: Yes Status: Acute Likely mulitfactorial with recent PNA, COPD and CHF and noted pleural effusions Will try to diurese for CHF but note pt has been in negative fluid balance for several days now Strict I/Os advised Pleural effusions vcannot be majorly impacted with diuretics. May need reassessment and if worse thoracentesis Also needs incentive spirometer use regularly for atelectasis Continue nebs and prednisone (2) CKD (chronic kidney disease) stage 4, GFR 15-29 ml/min Current Visit: Yes Status: Chronic SCr still better than labs outpatient in september at 2.1, GFR 23. No acute indication for RUG RENOVATOR at this time as pt s stable in stage 4 CKD UOP noted 1450cc yesterday in the past 24hrs and already 1850cc today which are pretty good. Will dose with one dose lasix/albumin today Continue fluid restriction Daily weights noted, not sure if accurate Continue to avoid nephrotoxins if possible (3) Hyperkalemia Current Visit: Yes Status: Acute Mild and improving at 5.3, should improve further with diuretics May need renal diet if persistent (4) Sepsis Current Visit: Yes Status: Acute Per primary. a/p abx Qualifiers: Sepsis type: sepsis due to unspecified organism Qualified Code(s): A41.9 - Sepsis, unspecified organism (5) Pancreatitis Current Visit: Yes Status: Acute Per primary. resolved Qualifiers: Chronicity: acute Acute pancreatitis complication: no infection or necrosis Qualified Code(s): K85.90 - Acute pancreatitis without necrosis or infection, unspecified (6) History of nephrectomy Current Visit: Yes Status: Chronic Hx of left nephrectomy, and in this solitary renal state, this has likely contributed at least in part to her CKD stage IV. (7) Renal cyst, acquired, right Current Visit: Yes Status: Acute (8) Hypernatremia Current Visit: Yes Status: Acute resolved Subjective Principal diagnosis: CKD Interval history: Called to see pt again by primary team after family rejected hospice care as an option for their loved one. The concern was continued respiratory distress and CKD. On review Lastest Scr today was 2.1, GFR 23 an improvement from previous and also better than he GFR in stiven of 16. Also notable is her UOP has consistently been >1 liter daily (1450cc yesterday and 1850cc so far today)for the past 5 days without diuretics since 12/15/17 and has been negative fluid balance per the records. Pt seen and examined with her oldest daughter by bedside. Pt reports feeling like her breathing has improved and is eager to go home soon. Last CXR as of 12/14/17 showed bilateral opacities consistent with bilateral pleural and possible atelectasis vs infiltrates. Objective - Vital Signs Vital signs: Vital Signs Temp Pulse Resp BP Pulse Ox 12/19/17 11:32 20 90 12/19/17 08:02 98.2 F 106 17 133/89 91 12/19/17 07:34 18 90 12/19/17 04:22 18 89 12/19/17 01:01 98.0 F 88 24 139/66 91 12/18/17 20:01 18 92 12/18/17 20:00 97.6 F 76 16 128/64 93 12/18/17 16:58 98.1 F 86 17 126/79 88 12/18/17 16:08 16 91 Intake and Output 12/18/17 12/19/17 12/19/17 23:59 07:59 15:59 Intake Total 0 / 0 120 / 120 Output Total 900 / 900 1300 / 1300 550 / 550 Balance -900 / -900 -1180 / -1180 -550 / -550 Intake: Oral 0 / 0 120 / 120 Output: Urine 900 / 900 550 / 550 Catheter 0 / 0 1300 / 1300 Other: Percent of Meal Consumed 100% Stool Size Moderate Stool Consistency soft Stool Color Brown # Bowel Movement Diapers 2 Weight 63.4 kg Blood Glucose* 344 197 Patient Weight 12/19/17 23:59 Weight 63.4 kg - General Appearance General appearance: Present: chronically ill, frail EENT: Present: ATNC, mucous membranes moist Neck: Present: no JVD, supple Additional Comments: good areation ant bilat Cardiology: Present: edema (trace LE edema bilat), normal S1, normal S2 Gastrointestinal: Present: no tenderness, no guarding Integumentary: Present: warm and dry Neurologic: Present: no focal deficit Musculoskeletal: Present: no deformities Psychiatric: Present: mood/affect appropriate, cooperative - Lab 12/19/17 13:06 12/19/17 13:06 Most recent lab results ABG pH 7.31 pH Units (7.32-7.45) L 12/10/17 15:16 ABG pCO2 46 mmHg (35-45) H 12/10/17 15:16 ABG pO2 71 mmHg (85-104) L 12/10/17 15:16 ABG HCO3 23 mEq/L (21-27) 12/10/17 15:16 ABG O2 Saturation 92 % (95-98) L 12/10/17 15:16 Calcium 8.2 mg/dL (8.6-10.3) L 12/19/17 13:06 Phosphorus 3.3 mg/dL (2.7-4.5) 12/11/17 04:43 Magnesium 1.5 mg/dL (1.6-2.6) L 12/15/17 04:53 Urine Creatinine 23 mg/dL 12/09/17 19:10 Urine Sodium 68.7 mEq/L 12/09/17 19:10 Urine Total Protein 163 mg/dL (1-14) H 12/09/17 19:10 Consult Discharge Plan - Plan Instructions: Lorazepam (By mouth), Ipratropium (By breathing), Laxative, Stimulant (By mouth), Morphine, Rapid Release (By mouth), Ondansetron (By mouth) , Budesonide (By breathing), Acute Kidney Injury (DC), Urinary Tract Infection in Women (DC), Hospice Care (GEN), Chronic Obstructive Pulmonary Disease (DC), Pneumonia (DC) Referrals: NONE,PCP [Primary Care Provider] - Prescriptions: Ondansetron ODT [Zofran ODT] 4 mg SL Q4HR PRN #24 tab.rapdis PRN Reason: Nausea Ipratropium/Albuterol Neb [Duoneb] 3 ml IH Q6HR 4 Days #16 vial.neb Budesonide Neb [Pulmicort Neb] 0.5 mg IH BIDR 4 Days #8 ampul.neb LORazepam Oral Conc [Ativan Oral Conc] 0.5 mg SL Q2H PRN 4 Days #15 mls PRN Reason: Anxiety MORPHINE SUL Oral CONC [Roxanol Oral Conc] 5 mg PO Q4H PRN 4 Days #15 ml PRN Reason: Pain/Dyspnea Sennosides/Docusate Sodium [Senna Plus] 1 each PO BID 4 Days #8 tablet
[2017-12-19] MEDS ORDERED: Albumin 25% 25gram/100mL 25 GM/100 ML IV.SOLN IVPB ONE (15:36)
[2017-12-19] MEDS: Furosemide 40 MG/4 ML VIAL IVP ONE ×2 (16:10→18:01)
[2017-12-19] MEDS: *HR* LORazepam 0.5 MG TABLET PO PRN (21:56)
[2017-12-20 04:07] LABS: Basophils # 0.1 K/mcL (0.0-0.2); Basophils % 0.4 %; Hematocrit 30.4 % (35.3-44.9); Hemoglobin 9.4 g/dL (11.5-15.4); Immature Granulocytes % 3.1 % (0-4); Lymphocytes # 0.6 K/mcL (0.6-4.6); Lymphocytes % 4.3 %; Mean Corpuscular HGB Conc 30.9 g/dL (31.6-35.5); Mean Corpuscular Hemoglobin 29.9 pg (28.0-33.3); Mean Corpuscular Volume 96.8 fL (83.0-100.0); Mean Platelet Volume 11.3 fL (9.4-12.4); Monocytes # 0.5 K/mcL (0.0-1.3); Monocytes % 3.7 %; Platelet Count 262 K/mcL (140-400); Red Blood Count 3.14 M/mcL (3.82-4.97); Red Cell Distribution Width 15.8 % (11.5-14.5); Segmented Neutrophils % 88.5 %
[2017-12-20] MEDS: Ipratropium/Albuterol Neb 3 ML IH SCH ×5 (04:13→19:39)
[2017-12-20 04:31] LABS: Calcium 8.2 mg/dL (8.6-10.3)
[2017-12-20] MEDS: predniSONE 20 MG TABLET PO SCH (09:42)
[2017-12-20] MEDS: *HR* Heparin 5,000 UNIT/ML VIAL SQ SCH ×3 (09:42→23:23)
[2017-12-20] MEDS: Nystatin SUSP 5 ML UD.LIQ PO SCH ×4 (09:42→21:46)
[2017-12-20] MEDS: Aspirin Enteric Coated 325 MG Tablet PO SCH (09:42)
[2017-12-20] MEDS: Insulin LISPRO 300 UNITS/3 ML VIAL SQ SCH ×3 (09:42→16:14)
[2017-12-20] MEDS: Sennosides/Docusate Sodium TABLET PO SCH ×2 (09:51→21:40)
--- NOTE | 2017-12-20 10:10 | Internal Med Progress Note ---
<Fili Ulloa - Last Filed: 12/20/17 12:50> Hospitalist Progress Note - Encounter Date of Encounter: 12/20/17 - Exam Vitals: Temp Pulse Resp BP Pulse Ox 98.7 F 76 18 144/84 96 12/20/17 07:15 12/20/17 07:15 12/20/17 11:17 12/20/17 07:15 12/20/17 11:17 - Assessment and Plan (1) Sepsis Current Visit: Yes Status: Acute (2) Pancreatitis Current Visit: Yes Status: Acute (3) UTI (urinary tract infection) Current Visit: Yes Status: Resolved (4) Coronary artery disease Current Visit: Yes Status: Acute (5) Anxiety Current Visit: Yes Status: Chronic (6) COPD (chronic obstructive pulmonary disease) Current Visit: Yes Status: Chronic (7) Elevated troponin Current Visit: Yes Status: Acute (8) Acute renal failure Current Visit: Yes Status: Acute (9) Hypernatremia Current Visit: Yes Status: Acute (10) Respiratory failure Current Visit: Yes Status: Acute (11) Pneumonia Current Visit: Yes Status: Acute (12) Acute on chronic diastolic (congestive) heart failure Current Visit: Yes Status: Acute - Time Spent with Patient Total time spent is greater than 50% in coordination of care (as documented) at patient's floor/unit and/or counseling patient: Internal Medicine: Result - Labs CBC & Chem 7: 12/20/17 03:54 12/20/17 03:54 Labs: Short CBC 12/19/17 12/20/17 Range/Units 13:06 03:54 WBC 19.1 H 13.6 H (4.3-11.1) K/mcL Hgb 10.8 L 9.4 L (11.5-15.4) g/dL Hct 36.1 30.4 L (35.3-44.9) % Plt Count 263 262 (140-400) K/mcL Neutrophils # 16.6 H 12.0 H (1.6-8.9) K/mcL BMP 12/19/17 12/20/17 13:06 03:54 Sodium 137 137 Potassium 5.3 H 6.0 H Chloride 108 H 107 Carbon Dioxide 22 L 22 L BUN 46 H 56 H Creatinine 2.10 H 2.18 H Glucose 209 H 373 H Calcium 8.2 L 8.2 L - ABG Interpretation ABG results: ABG ABG pH 7.31 pH Units (7.32-7.45) L 12/10/17 15:16 ABG pCO2 46 mmHg (35-45) H 12/10/17 15:16 ABG pO2 71 mmHg (85-104) L 12/10/17 15:16 ABG O2 Saturation 92 % (95-98) L 12/10/17 15:16 PT/INR, D-dimer PT 12.2 Seconds (9.4-12.1) H 12/11/17 08:30 Consult Discharge Plan - Plan Instructions: Lorazepam (By mouth), Ipratropium (By breathing), Laxative, Stimulant (By mouth), Morphine, Rapid Release (By mouth), Ondansetron (By mouth) , Budesonide (By breathing), Acute Kidney Injury (DC), Urinary Tract Infection in Women (DC), Hospice Care (GEN), Chronic Obstructive Pulmonary Disease (DC), Pneumonia (DC) Referrals: NONE,PCP [Primary Care Provider] - Prescriptions: Ondansetron ODT [Zofran ODT] 4 mg SL Q4HR PRN #24 tab.rapdis PRN Reason: Nausea Ipratropium/Albuterol Neb [Duoneb] 3 ml IH Q6HR 4 Days #16 vial.neb Budesonide Neb [Pulmicort Neb] 0.5 mg IH BIDR 4 Days #8 ampul.neb LORazepam Oral Conc [Ativan Oral Conc] 0.5 mg SL Q2H PRN 4 Days #15 mls PRN Reason: Anxiety MORPHINE SUL Oral CONC [Roxanol Oral Conc] 5 mg PO Q4H PRN 4 Days #15 ml PRN Reason: Pain/Dyspnea Sennosides/Docusate Sodium [Senna Plus] 1 each PO BID 4 Days #8 tablet - Attending Attestation I performed an independent interview and examine this patient. I agree with the findings, assessment, and plan of Devonte Ramos, Medical Student. Patient has had a prolonged hospital stay due to ongoing acute on chronic [place] failure, need for BiPAP, she also has acute kidney injury on chronic kidney disease stage IV. Improved with her therapy. Nephrology is following and as of yesterday was adding Lasix and albumin to try to assist with controlling her volume status. Fortunately Lasix has made her renal function worsened. Family and patient have been hovering around hospice versus ongoing aggressive care. Presently they wish to pursue ongoing medical management with the hopes that she will improve. Palliative care continues to follow along. Her prognosis is poor. Gen NAD, AAOx3, mild confusion, hard of hearing Neck supple Lung bibasilar crackles Ht rrr Abd soft +bs Ext 1+ edema bilat Neuro nonfocal We had a detailed family meeting yesterday. Presently they wish to continue with current therapy and are not ready to make to hospice decision. Despite this patient has multiple time stated she does not want aggressive care but there is some question of whether or not she is able to make her own decisions consistently. She has however adamantly stated she does not want intubation and /or chest compressions in the event of cardiopulmonary arrest. We are currently further recommendations from nephrology. <Devonte Ramos - Last Filed: 12/20/17 12:56> Hospitalist Progress Note - Encounter Date of Encounter: 12/20/17 Time of Encounter: 09:00 - Subjective Interval History: 67 y/o F pt is A&Ox3 and was seen and evaluated at bedside. Pt reports no change in symptoms and is quite adamant to leave today. Family has stated that they have home healthcare set up for the pt and would prefer this over hospice. Pt continues to state she does not want any aggressive treatment. Kidney function continues to worsen. Pt SCr has begun to rise above baseline (2.18) and BUN continues to increase to 56 today (46, 40, 34, 32). Nephrology was consulted in regards to pt starting dialysis however recommends against doing so due to pt current kidney function. Pt was diuresed with albumin along with a Lasix bolus. - Exam Vitals: Temp Pulse Resp BP Pulse Ox 98.7 F 76 18 144/84 94 12/20/17 07:15 12/20/17 07:15 12/20/17 07:15 12/20/17 07:15 12/20/17 07:15 Exam: Head: Normocephalic Lungs: Wheezing B/L CV: RRR. No murmurs rubs or gallops. Abdomen: Pain only with deep palpation at sites of hernias. Bowel sounds heard in all 4 quadrants. MSK: Upper Extremities 5/5 strength Skin: dry and intact - Assessment and Plan (1) Acute respiratory failure with hypoxia and hypercarbia Current Visit: Yes Status: Acute Assessment and Plan: Underlying COPD/emphasematous changes on CXR - CT Chest/abd/pelvis shows bibasilar consolidations, atelectasis L>R (her dependent side) - ECHO 65%, CXR shows no pulm edema Plan: - Prednisone 40 mg by mouth daily - DuoNeb 3 mL inhaled every 4 when necessary - Currently satting 94% on nasal cannula - Morphine SL prn dyspnea added (12/15) (2) Pneumonia Current Visit: Yes Status: Acute Assessment and Plan: - LLL PNA with identified organism S pneumoniae (12/12) - Completed 10 day course of Levaquin (12/18) (3) Acute renal failure Current Visit: Yes Status: Acute Assessment and Plan: - Pt has CKD Stage 4 - General Technician recommends against dialysis for pt due to worsening kidney function - Albumin was added to diuresis (12/19) (4) COPD (chronic obstructive pulmonary disease) Current Visit: Yes Status: Chronic Assessment and Plan: Known history of COPD - CXR shows emphysematous changes - Continue duoneb eron, o2 titration (5) Coronary artery disease Current Visit: Yes Status: Acute Assessment and Plan: - Known hx of CAD - ASA 325 mg by mouth daily - Lopressor 5 mg IVP every 6 when necessary (6) UTI (urinary tract infection) Current Visit: Yes Status: Resolved Assessment and Plan: Resolved - Patient presented with leukocytosis, hypotension - UA early in hospital course shows turbid urine with pH of 9.0, moderate blood , leukocyte esterase and urine bacteria - Urine CX and blood cultures were collected at [facility] - Urine CX has grown Klebsiella - CT abd/pelvis possible cystitis (fat stranding ) (7) Aneurysm Current Visit: Yes Status: Acute Assessment and Plan: - Abdomen CT incidentally found infrarenal aortic aneurysm measuring 2.9cm - As per guidelines, f/u with PCP every 5 yrs to manage (8) Anxiety Current Visit: Yes Status: Chronic Assessment and Plan: - Ativan SL prn comfort (12/15) with recent change to palliative care plan (9) Diabetes Current Visit: Yes Status: Acute Assessment and Plan: Low corrective SSI (10) DVT prophylaxis Current Visit: Yes Status: Acute Assessment and Plan: SubQ Heparin - Time Spent with Patient Total time spent is greater than 50% in coordination of care (as documented) at patient's floor/unit and/or counseling patient: Internal Medicine: Result - Labs CBC & Chem 7: 12/20/17 03:54 12/20/17 03:54 Labs: Short CBC 12/19/17 12/20/17 Range/Units 13:06 03:54 WBC 19.1 H 13.6 H (4.3-11.1) K/mcL Hgb 10.8 L 9.4 L (11.5-15.4) g/dL Hct 36.1 30.4 L (35.3-44.9) % Plt Count 263 262 (140-400) K/mcL Neutrophils # 16.6 H 12.0 H (1.6-8.9) K/mcL BMP 12/19/17 12/20/17 13:06 03:54 Sodium 137 137 Potassium 5.3 H 6.0 H Chloride 108 H 107 Carbon Dioxide 22 L 22 L BUN 46 H 56 H Creatinine 2.10 H 2.18 H Glucose 209 H 373 H Calcium 8.2 L 8.2 L - ABG Interpretation ABG results: ABG ABG pH 7.31 pH Units (7.32-7.45) L 12/10/17 15:16 ABG pCO2 46 mmHg (35-45) H 12/10/17 15:16 ABG pO2 71 mmHg (85-104) L 12/10/17 15:16 ABG O2 Saturation 92 % (95-98) L 12/10/17 15:16 PT/INR, D-dimer PT 12.2 Seconds (9.4-12.1) H 12/11/17 08:30 <Fili Ulloa R - Last Filed: 12/20/17 12:50> (1) Sepsis Qualifiers: Sepsis type: sepsis due to unspecified organism Qualified Code(s): A41.9 - Sepsis, unspecified organism (2) Pancreatitis Qualifiers: Chronicity: acute Pancreatitis type: other Acute pancreatitis complication: no infection or necrosis Qualified Code(s): K85.80 - Other acute pancreatitis without necrosis or infection (3) UTI (urinary tract infection) Qualifiers: Urinary tract infection type: acute cystitis Hematuria presence: with hematuria Qualified Code(s): N30.01 - Acute cystitis with hematuria (4) Coronary artery disease Qualifiers: Coronary Disease-Associated Artery/Lesion type: [place] artery [place] vs. transplanted heart: [place] heart Associated angina: without angina Qualified Code(s): I25.10 - Atherosclerotic heart disease of [place] coronary artery without angina pectoris (6) COPD (chronic obstructive pulmonary disease) Qualifiers: COPD type: emphysema Emphysema type: panlobular Qualified Code(s): J43.1 - Panlobular emphysema (8) Acute renal failure Qualifiers: Acute renal failure type: unspecified Qualified Code(s): N17.9 - Acute kidney failure, unspecified (10) Respiratory failure Qualifiers: Chronicity: acute Respiratory failure complication: hypoxia and hypercapnia Qualified Code(s): J96.01 - Acute respiratory failure with hypoxia; J96.02 - Acute respiratory failure with hypercapnia (11) Pneumonia Qualifiers: Pneumonia type: due to Pneumococcus Laterality: bilateral Lung location: lower lobe of lung Qualified Code(s): J13 - Pneumonia due to Streptococcus pneumoniae <Devonte Ramos S - Last Filed: 12/20/17 12:56> (2) Pneumonia Qualifiers: Pneumonia type: due to Pneumococcus Laterality: bilateral Lung location: lower lobe of lung Qualified Code(s): J13 - Pneumonia due to Streptococcus pneumoniae (3) Acute renal failure Qualifiers: Acute renal failure type: unspecified Qualified Code(s): N17.9 - Acute kidney failure, unspecified (4) COPD (chronic obstructive pulmonary disease) Qualifiers: COPD type: emphysema Emphysema type: panlobular Qualified Code(s): J43.1 - Panlobular emphysema (5) Coronary artery disease Qualifiers: Coronary Disease-Associated Artery/Lesion type: [place] artery [place] vs. transplanted heart: [place] heart Associated angina: without angina Qualified Code(s): I25.10 - Atherosclerotic heart disease of [place] coronary artery without angina pectoris (6) UTI (urinary tract infection) Qualifiers: Urinary tract infection type: acute cystitis Hematuria presence: with hematuria Qualified Code(s): N30.01 - Acute cystitis with hematuria
[2017-12-20] MEDS ORDERED: OXYCODONE Oral CONC 10 MG/0.5 ML ORAL.SYG SL PRN (10:24)
--- NOTE | 2017-12-20 10:58 | Palliative Progress Note ---
Date of Encounter: 12/20/17 Time of Encounter: 10:00 - Assessment and plan (1) Dyspnea Current Visit: Yes Status: Acute Assessment and plan: Continues with high flow oxygen, Duonebs, did received Furosemide/Albumin for fluid overload. Qualifiers: Dyspnea type: unspecified Qualified Code(s): R06.00 - Dyspnea, unspecified (2) Goals of care, counseling/discussion Current Visit: Yes Status: Acute Assessment and plan: Patient's daughter at bedside - discussed events over weekend. Patient originally was to be discharged with hospice on Sat, however, when hospice here to speak with pt/family, they changed their mind and did not want to follow through with this plan. Patient and family now desire home health care upon discharge. Discussed that any previous medical equipment set up at home for discharge Sat was provided by [facility], so they will eventually get equipment, and if oxygen and bipap remain, pt will have to meet qualifications for that and the bipap. Rest of children supposed to be in later today. Discussed that they needed to meet with social work or telephonic case manager to discuss home health. Provided my contact number to daughter if they need to reach me. (3) Acute respiratory failure Current Visit: Yes Status: Acute Qualifiers: Respiratory failure complication: hypoxia Qualified Code(s): J96.01 - Acute respiratory failure with hypoxia (4) Acute kidney injury superimposed on CKD Current Visit: Yes Status: Acute Assessment and plan: Nephrology following. - Time Spent With Patient Total time spent is greater than 50% in coordination of care (as documented) at patient's floor/unit and/or counseling patient: - Subjective Interval history: Patient resting quietly - daughter at bedside. She awakens easily - do not really want to be disturbed at this time. Did let me to assessment, but wants to go back to sleep. She denies pain/anxiety, states breathing feels "pretty good", states she is eating well and bowels are moving. Remains on 12LPM high flow oxygen. She didn't interact with other conversation. Daughter at bedside states that they spoke with Briana at [facility] this weekend, and they have decided to NOT transition to hospice care. Daughter states they still desire to come back to hospital if has respiratory symptoms, and do not agree with Roxanol and other medications that hospice provides. She was not open to further education at this time, stated they have made their decision. - Constitutional Vitals: Abnormal lab results WBC 13.6 K/mcL (4.3-11.1) H 12/20/17 03:54 RBC 3.14 M/mcL (3.82-4.97) L 12/20/17 03:54 Hgb 9.4 g/dL (11.5-15.4) L 12/20/17 03:54 Hct 30.4 % (35.3-44.9) L 12/20/17 03:54 MCHC 30.9 g/dL (31.6-35.5) L 12/20/17 03:54 RDW 15.8 % (11.5-14.5) H 12/20/17 03:54 Neutrophils # 12.0 K/mcL (1.6-8.9) H 12/20/17 03:54 PT 12.2 Seconds (9.4-12.1) H 12/11/17 08:30 Heparin Anti-Xa, Unfract 0.08 IU/mL (0.30-0.70) L 12/14/17 01:50 ABG pH 7.31 pH Units (7.32-7.45) L 12/10/17 15:16 ABG pCO2 46 mmHg (35-45) H 12/10/17 15:16 ABG pO2 71 mmHg (85-104) L 12/10/17 15:16 ABG O2 Saturation 92 % (95-98) L 12/10/17 15:16 ABG Base Excess -3 mEq/L (-2 to 3) L 12/10/17 15:16 VBG pH 7.30 pH Units (7.32-7.42) L 12/13/17 06:06 VBG pO2 128 mmHg (25-50) H 12/13/17 06:06 Potassium 6.0 mEq/L (3.5-5.1) H 12/20/17 03:54 Carbon Dioxide 22 mEq/L (23-29) L 12/20/17 03:54 BUN 56 mg/dL (8-23) H 12/20/17 03:54 Creatinine 2.18 mg/dL (0.60-1.20) H 12/20/17 03:54 Est GFR ( Amer) 27 (> 60) L 12/20/17 03:54 Est GFR (Non-Af Amer) 22 (> 60) L 12/20/17 03:54 Glucose 373 mg/dL (70-105) H 12/20/17 03:54 POC Glucose 279 mg/dL (70-99) H 12/19/17 21:11 Calculated Osmolality 315 (280-300) H 12/20/17 03:54 Uric Acid 8.2 mg/dL (2.3-7.6) H 12/09/17 15:15 Calcium 8.2 mg/dL (8.6-10.3) L 12/20/17 03:54 Magnesium 1.5 mg/dL (1.6-2.6) L 12/15/17 04:53 Total Bilirubin 0.2 mg/dL (0.3-1.0) L 12/10/17 04:34 AST 6 Units/L (13-39) L 12/10/17 04:34 ALT 3 Units/L (7-52) L 12/10/17 04:34 Alkaline Phosphatase 109 Units/L (34-104) H 12/10/17 04:34 Creatine Kinase 14 Units/L (30-223) L 12/09/17 15:15 Troponin I 0.11 ng/mL (< 0.04) H* 12/10/17 15:21 Serum Total Protein 5.9 g/dL (6.4-8.9) L 12/10/17 04:34 Albumin 1.9 g/dL (3.5-5.7) L 12/10/17 04:34 Globulin 4.0 g/dL (2.4-3.5) H 12/10/17 04:34 Albumin/Globulin Ratio 0.5 (1.1-2.2) L 12/10/17 04:34 Triglycerides 259 mg/dL (< 150) H 12/09/17 04:59 Lipase 180 Units/L (11-82) H 12/13/17 05:54 Urine Clarity Turbid (Clear) A 12/09/17 19:10 Ur Specific [place] 1.006 (1.010-1.025) L 12/09/17 19:10 Urine Protein 100 mg/dL (Neg-Trace) H 12/09/17 19:10 Urine Blood Moderate (Negative) H 12/09/17 19:10 Ur Leukocyte Esterase Large (Negative) H 12/09/17 19:10 Urine Microscopic RBC 5-15 per hpf (0-3) H 12/09/17 19:10 Urine Microscopic WBC TNTC per hpf (0-3) H 12/09/17 19:10 Ur Squamous Epith Cells Moderate per lpf (None-Few) H 12/09/17 19:10 Protein/Creatinin Ratio 7.09 mg/mg (0.00-0.20) H 12/09/17 19:10 Urine Total Protein 163 mg/dL (1-14) H 12/09/17 19:10 Vancomycin Trough 20 mcg/mL (5-10) H 12/13/17 05:54 General appearance: Present: no acute distress - Respiratory Respiratory exam: Present: decreased breath sounds - Cardiovascular Cardiovascular exam: Present: +S1, +S2 - GI/Abdominal GI/Abdominal exam: Present: normal bowel sounds, soft - Extremities Exam Extremities exam: Present: normal capillary refill, normal inspection - Neurological Exam Neurological exam: Present: alert, oriented X3, strengths equal and symetr throughout - Skin Skin exam: Present: dry, pallor, warm Palliative Quality Palliative Quality: Screen for Code Status: Yes, Screen for Goals of Care: Yes, Screen for Pain: Yes, If Pain Regimen Started, Initiate Bowel Regimen: NA, Screen for Nausea/Vomitting: Yes Code Status: 12/08/17 21:09 Resuscitation Status: Active [RES] Routine Comment: Resuscitation Status: Full Code 12/14/17 09:06 DNR [Resuscitation Status: Active] [RES] Routine Comment: Resuscitation Status: [id number] 12/17/17 15:25 DNR [Resuscitation Status: Active] [RES] Routine Comment: state form completed. Resuscitation Status: DNR-Comfort Care - Labs CBC & Chem 7: 12/20/17 03:54 12/20/17 03:54 Labs: Laboratory Results - last 24 hr 12/19/17 12/19/17 12/19/17 12:05 13:06 13:06 WBC 19.1 H RBC 3.65 L Hgb 10.8 L Hct 36.1 MCV 98.9 MCH 29.6 MCHC 29.9 L RDW 15.8 H Plt Count 263 MPV 11.1 Immature Gran % 2.1 Seg Neutrophils % 87.0 Lymphocytes % 4.4 Monocytes % 5.4 Eosinophils % 0.8 Basophils % 0.3 Neutrophils # 16.6 H Lymphocytes # 0.8 Monocytes # 1.0 Eosinophils # 0.2 Basophils # 0.1 Sodium 137 Potassium 5.3 H Chloride 108 H Carbon Dioxide 22 L BUN 46 H Creatinine 2.10 H Est GFR ( Amer) 28 L Est GFR (Non-Af Amer) 23 L BUN/Creatinine Ratio 22 Glucose 209 H POC Glucose 197 H Calculated Osmolality 302 H Calcium 8.2 L 12/19/17 12/19/17 12/20/17 17:06 21:11 03:54 WBC 13.6 H RBC 3.14 L Hgb 9.4 L Hct 30.4 L MCV 96.8 MCH 29.9 MCHC 30.9 L RDW 15.8 H Plt Count 262 MPV 11.3 Immature Gran % 3.1 Seg Neutrophils % 88.5 Lymphocytes % 4.3 Monocytes % 3.7 Eosinophils % 0.0 Basophils % 0.4 Neutrophils # 12.0 H Lymphocytes # 0.6 Monocytes # 0.5 Eosinophils # 0.0 Basophils # 0.1 Sodium Potassium Chloride Carbon Dioxide BUN Creatinine Est GFR ( Amer) Est GFR (Non-Af Amer) BUN/Creatinine Ratio Glucose POC Glucose 343 H 279 H Calculated Osmolality Calcium 12/20/17 03:54 WBC RBC Hgb Hct MCV MCH MCHC RDW Plt Count MPV Immature Gran % Seg Neutrophils % Lymphocytes % Monocytes % Eosinophils % Basophils % Neutrophils # Lymphocytes # Monocytes # Eosinophils # Basophils # Sodium 137 Potassium 6.0 H Chloride 107 Carbon Dioxide 22 L BUN 56 H Creatinine 2.18 H Est GFR ( Amer) 27 L Est GFR (Non-Af Amer) 22 L BUN/Creatinine Ratio 26 Glucose 373 H POC Glucose Calculated Osmolality 315 H Calcium 8.2 L - ABG Interpretation ABG results: ABG ABG pH 7.31 pH Units (7.32-7.45) L 12/10/17 15:16 ABG pCO2 46 mmHg (35-45) H 12/10/17 15:16 ABG pO2 71 mmHg (85-104) L 12/10/17 15:16 ABG O2 Saturation 92 % (95-98) L 12/10/17 15:16 PT/INR, D-dimer PT 12.2 Seconds (9.4-12.1) H 12/11/17 08:30 Consult Discharge Plan - Plan Instructions: Lorazepam (By mouth), Ipratropium (By breathing), Laxative, Stimulant (By mouth), Morphine, Rapid Release (By mouth), Ondansetron (By mouth) , Budesonide (By breathing), Acute Kidney Injury (DC), Urinary Tract Infection in Women (DC), Hospice Care (GEN), Chronic Obstructive Pulmonary Disease (DC), Pneumonia (DC) Referrals: NONE,PCP [Primary Care Provider] - Prescriptions: Ondansetron ODT [Zofran ODT] 4 mg SL Q4HR PRN #24 tab.rapdis PRN Reason: Nausea Ipratropium/Albuterol Neb [Duoneb] 3 ml IH Q6HR 4 Days #16 vial.neb Budesonide Neb [Pulmicort Neb] 0.5 mg IH BIDR 4 Days #8 ampul.neb LORazepam Oral Conc [Ativan Oral Conc] 0.5 mg SL Q2H PRN 4 Days #15 mls PRN Reason: Anxiety MORPHINE SUL Oral CONC [Roxanol Oral Conc] 5 mg PO Q4H PRN 4 Days #15 ml PRN Reason: Pain/Dyspnea Sennosides/Docusate Sodium [Senna Plus] 1 each PO BID 4 Days #8 tablet
[2017-12-20] MEDS ORDERED: Furosemide 40 MG/4 ML VIAL IVP ONE (13:05)
[2017-12-20] MEDS ORDERED: Albumin 25% 25gram/100mL 25 GM/100 ML IV.SOLN IVPB ONE (13:05)
[2017-12-20] MEDS: *HR* LORazepam 0.5 MG TABLET PO PRN ×2 (16:14→21:54)
[2017-12-20] MEDS ORDERED: Insulin LISPRO 300 UNITS/3 ML VIAL SQ SCH (21:27)
[2017-12-20] MEDS ORDERED: Insulin DETEMIR 100 UNIT/ML X5UNITS SQ SCH (23:30)
[2017-12-21] MEDS: Ipratropium/Albuterol Neb 3 ML IH SCH ×4 (00:01→11:32)
[2017-12-21] MEDS: Nystatin SUSP 5 ML UD.LIQ PO SCH ×2 (08:45→11:56)
[2017-12-21] MEDS: Aspirin Enteric Coated 325 MG Tablet PO SCH (08:46)
[2017-12-21] MEDS: *HR* Heparin 5,000 UNIT/ML VIAL SQ SCH (08:46)
[2017-12-21] MEDS: Sennosides/Docusate Sodium TABLET PO SCH (08:46)
[2017-12-21] MEDS: Insulin LISPRO 300 UNITS/3 ML VIAL SQ SCH ×2 (08:47→11:54)
[2017-12-21] MEDS ORDERED: Diltiazem CD (24hr) 120 MG CAPSULE PO SCH (09:00)
[2017-12-21] MEDS ORDERED: predniSONE 10 MG TABLET PO SCH (09:00)
--- NOTE | 2017-12-21 09:20 | Palliative Progress Note ---
Date of Encounter: 12/21/17 Time of Encounter: 08:45 - Assessment and plan (1) Dyspnea Current Visit: Yes Status: Acute Assessment and plan: Patient denies dyspnea during assessment. Received 0 doses of Oxycodone in the last 24 hours; continue PRN. Qualifiers: Dyspnea type: unspecified Qualified Code(s): R06.00 - Dyspnea, unspecified (2) Sepsis Current Visit: Yes Status: Acute Qualifiers: Sepsis type: sepsis due to unspecified organism Qualified Code(s): A41.9 - Sepsis, unspecified organism (3) Pancreatitis Current Visit: Yes Status: Acute Qualifiers: Chronicity: acute Pancreatitis type: other Acute pancreatitis complication: no infection or necrosis Qualified Code(s): K85.80 - Other acute pancreatitis without necrosis or infection (4) Anxiety Current Visit: Yes Status: Chronic Assessment and plan: Patient denies anxiety during assessment. Has received 2 dose of Ativan in the last 24 hours, continue PRN. (5) COPD (chronic obstructive pulmonary disease) Current Visit: Yes Status: Chronic Assessment and plan: Patient currently using 12L High flow oxygen. Continue. Qualifiers: COPD type: emphysema Emphysema type: panlobular Qualified Code(s): J43.1 - Panlobular emphysema (6) Acute renal failure Current Visit: Yes Status: Acute Assessment and plan: Nephrology consulted; recommendations appreciated. Per report from Margret CROOK, not interested in dialyzing patient as patient is at baseline. Qualifiers: Acute renal failure type: unspecified Qualified Code(s): N17.9 - Acute kidney failure, unspecified (7) Acute respiratory failure with hypoxia and hypercarbia Current Visit: Yes Status: Acute (8) Goals of care, counseling/discussion Current Visit: Yes Status: Acute Assessment and plan: Attempted to discuss goals of care with patient. Patient reports she wants to go home. She "guesses home with hospice," but reports she is not sure. No family is present at bedside. Palliative care will follow up later today to see if family available at bedside to discuss goals of care. 1025: Attempted to call patient's Daughter Emanuel Izquierdo regarding goals of care. No answer and no voicemail. Will re-attempt later. 1100: Spoke with patient's son, he believes family in agreement for discharge home with hospice. 1130: Angel STEVENSON spoke with patient's daughter MALIKA Castellanos and confirmed home today with [facility]. Prescription written for Oxycodone. Called Laure[facility] to arrange discharge time and ambulance, awaiting return phone call. 1245: Spoke with Kiersten [facility]. [facility] unable to pay for transportation home; patient's insurance will under skilled need. Requested time for admission, unable to provide; however, informed patient will be first admission for afternoon nurse. Notified Bill RN [employer] of need for discharge order and [facility]. Notified Dr. Kaye of need for discharge order; will take care of. Patient plans to discharge home today with [facility]. - Time Spent With Patient Total time spent is greater than 50% in coordination of care (as documented) at patient's floor/unit and/or counseling patient: 25 - 35 minutes - Subjective Interval history: Spoke to patient's nurse Margret RN prior to assessment; was informed of family dillemma regarding discharge planning as family had argument over home health versus hospice yesterday evening; however, reports that she believes majority of family desires home with hospice. Reports ELVA and Dr. Ulloa met with family yesterday evening to discuss discharge planning. Patient lying in bed upon arrival for assessment. Alert and oriented times three. Denies pain, dyspnea, anxiety, nausea, and vomiting. No family present at bedside. Patient's oxygen saturation 93% on 12L High Flow [place]. Patient has received 0 doses of Oxycodone and 2 doses of Ativan in the last 24 hours. Discussed goals of care with patient, reports "I don't care how I go home, I just want to go home, I hate this place." - Constitutional Vitals: Abnormal lab results WBC 13.6 K/mcL (4.3-11.1) H 12/20/17 03:54 RBC 3.14 M/mcL (3.82-4.97) L 12/20/17 03:54 Hgb 9.4 g/dL (11.5-15.4) L 12/20/17 03:54 Hct 30.4 % (35.3-44.9) L 12/20/17 03:54 MCHC 30.9 g/dL (31.6-35.5) L 12/20/17 03:54 RDW 15.8 % (11.5-14.5) H 12/20/17 03:54 Neutrophils # 12.0 K/mcL (1.6-8.9) H 12/20/17 03:54 PT 12.2 Seconds (9.4-12.1) H 12/11/17 08:30 Heparin Anti-Xa, Unfract 0.08 IU/mL (0.30-0.70) L 12/14/17 01:50 ABG pH 7.31 pH Units (7.32-7.45) L 12/10/17 15:16 ABG pCO2 46 mmHg (35-45) H 12/10/17 15:16 ABG pO2 71 mmHg (85-104) L 12/10/17 15:16 ABG O2 Saturation 92 % (95-98) L 12/10/17 15:16 ABG Base Excess -3 mEq/L (-2 to 3) L 12/10/17 15:16 VBG pH 7.30 pH Units (7.32-7.42) L 12/13/17 06:06 VBG pO2 128 mmHg (25-50) H 12/13/17 06:06 Potassium 6.0 mEq/L (3.5-5.1) H 12/20/17 03:54 Carbon Dioxide 22 mEq/L (23-29) L 12/20/17 03:54 BUN 56 mg/dL (8-23) H 12/20/17 03:54 Creatinine 2.18 mg/dL (0.60-1.20) H 12/20/17 03:54 Est GFR ( Amer) 27 (> 60) L 12/20/17 03:54 Est GFR (Non-Af Amer) 22 (> 60) L 12/20/17 03:54 Glucose 373 mg/dL (70-105) H 12/20/17 03:54 POC Glucose 530 mg/dL (70-99) H* 12/20/17 23:04 Calculated Osmolality 315 (280-300) H 12/20/17 03:54 Uric Acid 8.2 mg/dL (2.3-7.6) H 12/09/17 15:15 Calcium 8.2 mg/dL (8.6-10.3) L 12/20/17 03:54 Magnesium 1.5 mg/dL (1.6-2.6) L 12/15/17 04:53 Total Bilirubin 0.2 mg/dL (0.3-1.0) L 12/10/17 04:34 AST 6 Units/L (13-39) L 12/10/17 04:34 ALT 3 Units/L (7-52) L 12/10/17 04:34 Alkaline Phosphatase 109 Units/L (34-104) H 12/10/17 04:34 Creatine Kinase 14 Units/L (30-223) L 12/09/17 15:15 Troponin I 0.11 ng/mL (< 0.04) H* 12/10/17 15:21 Serum Total Protein 5.9 g/dL (6.4-8.9) L 12/10/17 04:34 Albumin 1.9 g/dL (3.5-5.7) L 12/10/17 04:34 Globulin 4.0 g/dL (2.4-3.5) H 12/10/17 04:34 Albumin/Globulin Ratio 0.5 (1.1-2.2) L 12/10/17 04:34 Triglycerides 259 mg/dL (< 150) H 12/09/17 04:59 Lipase 180 Units/L (11-82) H 12/13/17 05:54 Urine Clarity Turbid (Clear) A 12/09/17 19:10 Ur Specific [place] 1.006 (1.010-1.025) L 12/09/17 19:10 Urine Protein 100 mg/dL (Neg-Trace) H 12/09/17 19:10 Urine Blood Moderate (Negative) H 12/09/17 19:10 Ur Leukocyte Esterase Large (Negative) H 12/09/17 19:10 Urine Microscopic RBC 5-15 per hpf (0-3) H 12/09/17 19:10 Urine Microscopic WBC TNTC per hpf (0-3) H 12/09/17 19:10 Ur Squamous Epith Cells Moderate per lpf (None-Few) H 12/09/17 19:10 Protein/Creatinin Ratio 7.09 mg/mg (0.00-0.20) H 12/09/17 19:10 Urine Total Protein 163 mg/dL (1-14) H 12/09/17 19:10 Vancomycin Trough 20 mcg/mL (5-10) H 12/13/17 05:54 General appearance: Present: cooperative, mild distress - Head Head exam: Present: atraumatic, normal inspection - Eye Eye exam: Present: PERRL. Absent: periorbital swelling, periorbital tenderness Pupils: Present: normal accommodation - ENT ENT exam: Present: mucous membranes moist, normal external ear exam - Neck Neck exam: Present: full ROM, normal inspection - Respiratory Respiratory exam: Present: accessory muscle use, rales, rhonchi, tachypnea. Absent: respiratory distress - Cardiovascular Cardiovascular exam: Present: +S1, +S2 - GI/Abdominal GI/Abdominal exam: Present: normal bowel sounds, soft. Absent: tenderness - Rectal Rectal exam: Present: deferred - Additional comments: Patient has weeks in place with reddened output; primary team addressing. - Extremities Exam Extremities exam: Present: normal inspection. Absent: calf tenderness, pedal edema - Back Exam Back exam: Present: full ROM, normal inspection. Absent: tenderness - Neurological Exam Neurological exam: Present: alert, oriented X3, strengths equal and symetr throughout - Psychiatric Psychiatric exam: Present: anxious - Skin Skin exam: Present: intact, warm Palliative Quality Palliative Quality: Screen for Code Status: Yes, Screen for Goals of Care: Yes, Screen for Pain: Yes, If Pain Regimen Started, Initiate Bowel Regimen: NA, Screen for Nausea/Vomitting: Yes Code Status: 12/08/17 21:09 Resuscitation Status: Active [RES] Routine Comment: Resuscitation Status: Full Code 12/14/17 09:06 DNR [Resuscitation Status: Active] [RES] Routine Comment: Resuscitation Status: [id number] 12/17/17 15:25 DNR [Resuscitation Status: Active] [RES] Routine Comment: state form completed. Resuscitation Status: DNR-Comfort Care - Labs CBC & Chem 7: 12/21/17 10:39 12/21/17 10:39 Labs: Laboratory Results - last 24 hr 12/20/17 12/20/17 12/20/17 07:17 11:34 15:58 POC Glucose 351 H 256 H 294 H 12/20/17 12/20/17 12/20/17 20:42 20:43 23:03 POC Glucose 520 H* 543 H* 517 H* 12/20/17 23:04 POC Glucose 530 H* - ABG Interpretation ABG results: ABG ABG pH 7.31 pH Units (7.32-7.45) L 12/10/17 15:16 ABG pCO2 46 mmHg (35-45) H 12/10/17 15:16 ABG pO2 71 mmHg (85-104) L 12/10/17 15:16 ABG O2 Saturation 92 % (95-98) L 12/10/17 15:16 PT/INR, D-dimer PT 12.2 Seconds (9.4-12.1) H 12/11/17 08:30 Consult Discharge Plan - Plan Instructions: Lorazepam (By mouth), Ipratropium (By breathing), Laxative, Stimulant (By mouth), Morphine, Rapid Release (By mouth), Ondansetron (By mouth) , Budesonide (By breathing), Acute Kidney Injury (DC), Urinary Tract Infection in Women (DC), Hospice Care (GEN), Chronic Obstructive Pulmonary Disease (DC), Pneumonia (DC) Referrals: NONE,PCP [Primary Care Provider] - Prescriptions: Ondansetron ODT [Zofran ODT] 4 mg SL Q4HR PRN #24 tab.rapdis PRN Reason: Nausea Ipratropium/Albuterol Neb [Duoneb] 3 ml IH Q6HR 4 Days #16 vial.neb Budesonide Neb [Pulmicort Neb] 0.5 mg IH BIDR 4 Days #8 ampul.neb LORazepam Oral Conc [Ativan Oral Conc] 0.5 mg SL Q2H PRN 4 Days #15 mls PRN Reason: Anxiety OXYCODONE Oral CONC [Oxycodone Oral Conc] 5 mg PO Q6H PRN 4 Days #10 ml PRN Reason: pain/dyspnea Sennosides/Docusate Sodium [Senna Plus] 1 each PO BID 4 Days #8 tablet
[2017-12-21] MEDS ORDERED: Diltiazem CD (24hr) 120 MG CAPSULE PO ONE (09:48)
[2017-12-21 11:16] LABS: Basophils % 0.2 %; Eosinophils % 0.1 %; Hematocrit 33.5 % (35.3-44.9); Hemoglobin 10.5 g/dL (11.5-15.4); Immature Granulocytes % 2.9 % (0-4); Lymphocytes # 1.2 K/mcL (0.6-4.6); Mean Corpuscular HGB Conc 31.3 g/dL (31.6-35.5); Mean Corpuscular Volume 95.7 fL (83.0-100.0); Mean Platelet Volume 12.1 fL (9.4-12.4); Monocytes # 0.7 K/mcL (0.0-1.3); Monocytes % 4.9 %; Neutrophils # 12.3 K/mcL (1.6-8.9); Platelet Count 259 K/mcL (140-400); Red Cell Distribution Width 15.7 % (11.5-14.5); Segmented Neutrophils % 83.9 %
[2017-12-21 11:18] LABS: Albumin 3.5 g/dL (3.5-5.7); Albumin/Globulin Ratio 1.3 (1.1-2.2); Bilirubin,Total 0.2 mg/dL (0.3-1.0); Calcium 8.4 mg/dL (8.6-10.3); Globulin 2.7 g/dL (2.4-3.5); Magnesium 1.4 mg/dL (1.6-2.6); Potassium 4.8 mEq/L (3.5-5.1); Total Protein 6.2 g/dL (6.4-8.9)
--- NOTE | 2017-12-21 12:45 | Nephrology Progress Note ---
Date of Encounter: 12/21/17 Time of Encounter: 12:00 - Assessment and Plan (1) CKD (chronic kidney disease) stage 4, GFR 15-29 ml/min Current Visit: Yes Status: Chronic (2) Sepsis Current Visit: Yes Status: Acute Qualifiers: Sepsis type: sepsis due to unspecified organism Qualified Code(s): A41.9 - Sepsis, unspecified organism (3) Pancreatitis Current Visit: Yes Status: Acute Qualifiers: Chronicity: acute Acute pancreatitis complication: no infection or necrosis Qualified Code(s): K85.90 - Acute pancreatitis without necrosis or infection, unspecified (4) History of nephrectomy Current Visit: Yes Status: Chronic (5) Renal cyst, acquired, right Current Visit: Yes Status: Acute (6) Hypernatremia Current Visit: Yes Status: Acute (7) Hypomagnesemia Current Visit: Yes Status: Acute Subjective Principal diagnosis: CKD Interval history: Interim noted, pt seen and examined with discharge with hospice care planned tomorrow. Objective - Vital Signs Vital signs: Vital Signs Temp Pulse Resp BP Pulse Ox 12/21/17 11:33 18 93 12/21/17 08:45 16 94 12/21/17 07:53 97.6 F 113 16 127/83 92 12/21/17 03:40 20 92 12/21/17 03:25 97.8 F 82 15 113/77 96 12/21/17 00:01 21 132/66 95 12/20/17 22:13 12 12/20/17 19:40 24 90 12/20/17 18:34 98.5 F 108 17 132/66 91 12/20/17 15:46 16 90 12/20/17 15:00 98.7 F 78 16 152/87 99 Intake and Output 12/20/17 12/21/17 12/21/17 23:59 07:59 15:59 Intake Total 580 / 580 Output Total 1650 / 1650 250 / 250 450 / 450 Balance -1070 / -1070 -250 / -250 -450 / -450 Intake: IV Fluids 100 / 100 Flexbumin 25 gm In 100 ml @ 60 100 / 100 mls/hr IVPB ONCE ONE Rx#: [id number] Oral 480 / 480 Output: Urine 1650 / 1650 250 / 250 Catheter 450 / 450 Other: Meal Dinner Percent of Meal Consumed 90% Stool Size Small Stool Consistency loose Stool Color Brown # Bowel Movements 1 Weight 61.8 kg Blood Glucose* 530 163 Patient Weight 12/21/17 23:59 Weight 61.8 kg - Lab 12/21/17 10:39 12/21/17 10:39 Most recent lab results ABG pH 7.31 pH Units (7.32-7.45) L 12/10/17 15:16 ABG pCO2 46 mmHg (35-45) H 12/10/17 15:16 ABG pO2 71 mmHg (85-104) L 12/10/17 15:16 ABG HCO3 23 mEq/L (21-27) 12/10/17 15:16 ABG O2 Saturation 92 % (95-98) L 12/10/17 15:16 Calcium 8.4 mg/dL (8.6-10.3) L 12/21/17 10:39 Phosphorus 3.3 mg/dL (2.7-4.5) 12/11/17 04:43 Magnesium 1.4 mg/dL (1.6-2.6) L 12/21/17 10:39 Urine Creatinine 23 mg/dL 12/09/17 19:10 Urine Sodium 68.7 mEq/L 12/09/17 19:10 Urine Total Protein 163 mg/dL (1-14) H 12/09/17 19:10 Consult Discharge Plan - Plan Instructions: Lorazepam (By mouth), Ipratropium (By breathing), Laxative, Stimulant (By mouth), Morphine, Rapid Release (By mouth), Ondansetron (By mouth) , Budesonide (By breathing), Acute Kidney Injury (DC), Urinary Tract Infection in Women (DC), Hospice Care (GEN), Chronic Obstructive Pulmonary Disease (DC), Pneumonia (DC) Referrals: NONE,PCP [Primary Care Provider] - Prescriptions: Ondansetron ODT [Zofran ODT] 4 mg SL Q4HR PRN #24 tab.rapdis PRN Reason: Nausea Ipratropium/Albuterol Neb [Duoneb] 3 ml IH Q6HR 4 Days #16 vial.neb Budesonide Neb [Pulmicort Neb] 0.5 mg IH BIDR 4 Days #8 ampul.neb LORazepam Oral Conc [Ativan Oral Conc] 0.5 mg SL Q2H PRN 4 Days #15 mls PRN Reason: Anxiety OXYCODONE Oral CONC [Oxycodone Oral Conc] 5 mg PO Q6H PRN 4 Days #10 ml PRN Reason: pain/dyspnea Sennosides/Docusate Sodium [Senna Plus] 1 each PO BID 4 Days #8 tablet
--- NOTE | 2017-12-21 14:11 | Discharge Summary ---
<Nathan Ruggiero - Last Filed: 12/21/17 15:27> Orders not resulted at time of discharge: Pending orders 12/13/17 07:23 Culture,Sputum with Gram Stain [RM] Stat Date of Encounter: 12/21/17 Time of Encounter: 11:00 - Discharge Diagnosis (1) Pancreatitis Priority: Primary Status: Acute Qualifiers: Chronicity: acute Pancreatitis type: other Acute pancreatitis complication: no infection or necrosis Qualified Code(s): K85.80 - Other acute pancreatitis without necrosis or infection (2) Sepsis Priority: Primary Status: Acute Qualifiers: Sepsis type: sepsis due to unspecified organism Qualified Code(s): A41.9 - Sepsis, unspecified organism (3) Acute respiratory failure Priority: Secondary Status: Acute Qualifiers: Respiratory failure complication: hypoxia Qualified Code(s): J96.01 - Acute respiratory failure with hypoxia (4) UTI (urinary tract infection) Priority: Secondary Status: Resolved Qualifiers: Urinary tract infection type: acute cystitis Hematuria presence: with hematuria Qualified Code(s): N30.01 - Acute cystitis with hematuria (5) Coronary artery disease Priority: Secondary Status: Acute Qualifiers: Coronary Disease-Associated Artery/Lesion type: [place] artery [place] vs. transplanted heart: [place] heart Associated angina: without angina Qualified Code(s): I25.10 - Atherosclerotic heart disease of [place] coronary artery without angina pectoris (6) Anxiety Priority: Secondary Status: Chronic (7) COPD (chronic obstructive pulmonary disease) Priority: Secondary Status: Chronic Qualifiers: COPD type: emphysema Emphysema type: panlobular Qualified Code(s): J43.1 - Panlobular emphysema (8) CKD (chronic kidney disease) stage 4, GFR 15-29 ml/min Priority: Secondary Status: Chronic (9) History of nephrectomy Priority: Secondary Status: Chronic (10) Dyspnea Priority: Secondary Status: Acute Qualifiers: Dyspnea type: unspecified Qualified Code(s): R06.00 - Dyspnea, unspecified (11) Diabetes Priority: Secondary Status: Acute Qualifiers: Qualified Code(s): E11.9 - Type 2 diabetes mellitus without complications (12) Hyperkalemia Priority: Secondary Status: Acute Hospital course: Ms. Morales is a 67 year old female PMHx abdominal hearnias, recurrent UTIs, COPD, CAD, hyperlipidemia, HTN, osteoporosis, anemia, CKD stage III, renal mass , left nephrectomy CC abdominal pain, n/v/diarrhea. She was found to be septic with pancreatitis, UTI, and NEETU on CKD. Developed respiratory failure and Required BiPap. LLL pneumonia NEETU improving but added albumin to diuresis. No need for HD due to stable stage 4CKD. Culture demonstrated LLL pneumonia with S. pneumoniae and she completed 10 day course of Levaquin (12/18). Nephrology recommended against dialysis as CKD was stable. Patient's respiratory failure improved with prednisone (day #5), duoneb as needed. Palliative was consulted for deconditioning and multiple comorbidities. Patient has improved but has overall poor prognosis. After multiple meetings with palliative, patient and family have decided to be discharged home today with [facility]. Discharge discussed with: patient, family Time spent discussing smoking cessation with patient: more than 10 minutes - Time Spent with Patient Total time spent providing and/or coordinating discharge services: Greater than 30 minutes - Discharge Medications Prescriptions: Ondansetron ODT [Zofran ODT] 4 mg SL Q4HR PRN #24 tab.rapdis PRN Reason: Nausea Ipratropium/Albuterol Neb [Duoneb] 3 ml IH Q6HR 4 Days #16 vial.neb Budesonide Neb [Pulmicort Neb] 0.5 mg IH BIDR 4 Days #8 ampul.neb LORazepam Oral Conc [Ativan Oral Conc] 0.5 mg SL Q2H PRN 4 Days #15 mls PRN Reason: Anxiety OXYCODONE Oral CONC [Oxycodone Oral Conc] 5 mg PO Q6H PRN 4 Days #10 ml PRN Reason: pain/dyspnea Sennosides/Docusate Sodium [Senna Plus] 1 each PO BID 4 Days #8 tablet Home Medications: Albuterol Sulfate [Ventolin Hfa] 2 puff IH Q6H PRN 10/07/17 [History] Aspirin [Ecotrin] 325 mg PO DAILY 10/07/17 [History] Furosemide [Lasix] 20 mg PO DAILY 10/07/17 [History] Isosorbide MONOnitrate (24 HR) [Imdur] 60 mg PO DAILY 10/07/17 [History] Montelukast Sodium [Singulair] 10 mg PO HS 10/07/17 [History] Omeprazole [PriLOSEC] 40 mg PO DAILY 10/07/17 [History] diazePAM [Valium] 5 mg PO TID PRN 10/07/17 [History] Diltiazem HCl [Cardizem Cd] 360 mg PO DAILY 12/09/17 [History] Budesonide Neb [Pulmicort Neb] 0.5 mg IH BIDR 4 Days #8 ampul.neb 12/17/17 [Rx] Ipratropium/Albuterol Neb [Duoneb] 3 ml IH Q6HR 4 Days #16 vial.neb 12/17/17 [Rx ] LORazepam Oral Conc [Ativan Oral Conc] 0.5 mg SL Q2H PRN 4 Days #15 mls [Rx] Ondansetron ODT [Zofran ODT] 4 mg SL Q4HR PRN #24 tab.rapdis 12/17/17 [Rx] Sennosides/Docusate Sodium [Senna Plus] 1 each PO BID 4 Days #8 tablet 12/17/17 [Rx] OXYCODONE Oral CONC [Oxycodone Oral Conc] 5 mg PO Q6H PRN 4 Days #10 ml [Rx] Allergies/Adverse Reactions: 3 Allergy/AdvReac Type Severity Reaction Status Date / Time iodine AdvReac See Verified 10/07/17 14:34 Comments Date of admission: 12/09/17 16:57 Primary care physician: PCP NONE Consults: 12/09/17 12:55 Consult to Nephrology [CONS] Routine Consulting Provider: [facility] Reason for Consult: admitted for sepsis 2/2 uti vs pancreatitis; volume depleted on presentation, has seen Dr. 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 Saturates around 88-92 on bipap (toleraing facemask version) CT shows atelectasis and bibasilar consolidation L lower lobe>R; kidneys have tolerated spot diuresis (creat below baseline), receiving zosyn/ levaquin/vanc, steroid Time Notified: 14:00 Call Completed: Yes 12/15/17 13:24 Consult to Palliative Care [CONS] Routine Comment: Consulting Provider: [facility] Reason for Consult: End stage resp failure Time Notified: 13:24 Call Completed: Yes 12/20/17 10:26 Consult to Physical Therapy [CONS] Routine Comment: Evaluate, develop and implement POC Reason for Consult: eval and treat - patient orginally wanted hospice - now desires home health. Still requiring high flow oxygen. Please attempt to see how she may be able to participate. Does patient have active BEDREST order?: No Is patient medically & hemodynamically stable?: Yes Discharging clinician: Nathan Ruggiero Anticipated date of discharge: 12/21/17 - Constitutional Vitals: Temp Pulse Resp BP Pulse Ox 97.6 F 113 18 127/83 93 12/21/17 07:53 12/21/17 07:53 12/21/17 11:33 12/21/17 07:53 12/21/17 11:33 Exam: Head: Chronically ill. Anxious. Normocephalic Lungs: Wheezing B/L CV: RRR. No murmurs rubs or gallops. Abdomen: Pain only with deep palpation at sites of hernias. Bowel sounds heard in all 4 quadrants. MSK: Upper Extremities 5/5 strength Skin: dry and intact - Patient Status Disposition: Hospice - Medical Facility Condition: Serious Functional capacity at discharge: independent ambulation Overall status at discharge: patient is not back to baseline - Discharge Instructions Instructions: Lorazepam (By mouth), Ipratropium (By breathing), Laxative, Stimulant (By mouth), Morphine, Rapid Release (By mouth), Ondansetron (By mouth) , Budesonide (By breathing), Acute Kidney Injury (DC), Urinary Tract Infection in Women (DC), Hospice Care (GEN), Chronic Obstructive Pulmonary Disease (DC), Pneumonia (DC) Follow Up With: NONE,PCP [Primary Care Provider] - - Diet and Activity Activity: as per physical therapy, increase activity as tolerated Diet: advance to your usual diet <Elizabeth Kaye - Last Filed: 12/21/17 15:58> Orders not resulted at time of discharge: Pending orders 12/13/17 07:23 Culture,Sputum with Gram Stain [RM] Stat Date of Encounter: 12/21/17 - Discharge Diagnosis (1) Sepsis Status: Acute Qualifiers: Sepsis type: sepsis due to unspecified organism Qualified Code(s): A41.9 - Sepsis, unspecified organism (2) Pancreatitis Status: Acute Qualifiers: Chronicity: acute Pancreatitis type: other Acute pancreatitis complication: no infection or necrosis Qualified Code(s): K85.80 - Other acute pancreatitis without necrosis or infection (3) UTI (urinary tract infection) Status: Resolved Qualifiers: Urinary tract infection type: acute cystitis Hematuria presence: with hematuria Qualified Code(s): N30.01 - Acute cystitis with hematuria (4) Coronary artery disease Status: Acute Qualifiers: Coronary Disease-Associated Artery/Lesion type: [place] artery [place] vs. transplanted heart: [place] heart Associated angina: without angina Qualified Code(s): I25.10 - Atherosclerotic heart disease of [place] coronary artery without angina pectoris (5) Anxiety Status: Chronic (6) COPD (chronic obstructive pulmonary disease) Status: Chronic Qualifiers: COPD type: emphysema Emphysema type: panlobular Qualified Code(s): J43.1 - Panlobular emphysema (7) Elevated troponin Status: Acute (8) Acute renal failure Status: Acute Qualifiers: Acute renal failure type: unspecified Qualified Code(s): N17.9 - Acute kidney failure, unspecified (9) Hypernatremia Status: Acute (10) Respiratory failure Status: Acute Qualifiers: Chronicity: acute Respiratory failure complication: hypoxia and hypercapnia Qualified Code(s): J96.01 - Acute respiratory failure with hypoxia ; J96.02 - Acute respiratory failure with hypercapnia (11) Pneumonia Status: Acute Qualifiers: Pneumonia type: due to Pneumococcus Laterality: bilateral Lung location: lower lobe of lung Qualified Code(s): J13 - Pneumonia due to Streptococcus pneumoniae (12) Acute on chronic diastolic (congestive) heart failure Status: Acute Hospital course: Ms. Morales is a 67 year old female - Time Spent with Patient Total time spent providing and/or coordinating discharge services: Date of admission: 12/09/17 16:57 Primary care physician: PCP NONE Consults: 12/09/17 12:55 Consult to Nephrology [CONS] Routine Consulting Provider: [facility] [place] Reason for Consult: admitted for sepsis 2/2 uti vs pancreatitis; volume depleted on presentation, has seen Dr. Connor in clinic September 2017; solitary kidney after L nephrectomy due to abscess; NEETU on CKD stage 4; Creat responding to IV fluids 3.3->3.0, appreciate nephrology onboard in setting of solitary kidney Call Completed: Yes 12/12/17 15:05 Consult to Pulmonology [CONS] Routine Consulting Provider: [facility] [place] Reason for Consult: acute pancreatitis, emphasematous changes on CXR, desaturates on non-rebreather and hi-flow. Saturates around 88-92 on bipap (toleraing facemask version) CT shows atelectasis and bibasilar consolidation L lower lobe>R; kidneys have tolerated spot diuresis (creat below baseline), receiving zosyn/ levaquin/vanc, steroid Time Notified: 14:00 Call Completed: Yes 12/15/17 13:24 Consult to Palliative Care [CONS] Routine Comment: Consulting Provider: [facility] Reason for Consult: End stage resp failure Time Notified: 13:24 Call Completed: Yes 12/20/17 10:26 Consult to Physical Therapy [CONS] Routine Comment: Evaluate, develop and implement POC Reason for Consult: eval and treat - patient orginally wanted hospice - now desires home health. Still requiring high flow oxygen. Please attempt to see how she may be able to participate. Does patient have active BEDREST order?: No Is patient medically & hemodynamically stable?: Yes - Constitutional Vitals: Temp Pulse Resp BP Pulse Ox 97.6 F 113 18 127/83 93 12/21/17 07:53 12/21/17 07:53 12/21/17 11:33 12/21/17 07:53 12/21/17 11:33 - Attending Attestation I examined this patient and my medical decision-making was reviewed with the Resident Physician Dr. Ruggiero. I agree with the documented findings, disposition and treatment plan as described except to the extent set forth below. Ms. Morales is a 67 year old female PMHx abdominal hearnias, recurrent UTIs, COPD, CAD, hyperlipidemia, HTN, osteoporosis, anemia, CKD stage III, renal mass , left nephrectomy patient admitted here for acute pancreatitis, sepsis with UTI. She was admitted in the hospital and started on empirical antibiotic and IV hydration. Patient also happened to have acute kidney injury on CKD III. patient does have acute on chronic hypoxic respiratory failure was requiring almost 14 L high flow oxygen through nasal cannula. Patient and her family would like to take her home under [facility] so will arrange for the discharge today. Gen: A, A, O to Place, person and self Chest: Diminished BS, Mild wheezing, No crackles
--- NOTE | 2017-12-21 14:20 | Physician Discharge Referral ---
Home Health/Hosp Referral Info Transfer to: Hospice Provider in Charge Post Discharge: PCP - Diagnosis (1) Pancreatitis Priority: Primary Status: Acute (2) Sepsis Priority: Primary Status: Acute (3) Acute respiratory failure Priority: Secondary Status: Acute (4) UTI (urinary tract infection) Priority: Secondary Status: Resolved (5) Coronary artery disease Priority: Secondary Status: Acute (6) Anxiety Priority: Secondary Status: Chronic (7) COPD (chronic obstructive pulmonary disease) Priority: Secondary Status: Chronic (8) CKD (chronic kidney disease) stage 4, GFR 15-29 ml/min Priority: Secondary Status: Chronic (9) History of nephrectomy Priority: Secondary Status: Chronic (10) Dyspnea Priority: Secondary Status: Acute (11) Diabetes Priority: Secondary Status: Acute (12) Hyperkalemia Priority: Secondary Status: Acute - Respiratory Orders Smoking Cessation: Smoking cessation has been advised. For more information, call the [place] Tobacco Quit Line at 8-860-YZVV-NOW. - Diet/Nutrition Diet/Nutrition Orders: Regular - Activity Activity Orders: Walker - Services Needed Following services are medically necessary services: Physical Therapy, Occupational Therapy - Transfer Medications Prescriptions: Ondansetron ODT [Zofran ODT] 4 mg SL Q4HR PRN #24 tab.rapdis PRN Reason: Nausea Ipratropium/Albuterol Neb [Duoneb] 3 ml IH Q6HR 4 Days #16 vial.neb Budesonide Neb [Pulmicort Neb] 0.5 mg IH BIDR 4 Days #8 ampul.neb LORazepam Oral Conc [Ativan Oral Conc] 0.5 mg SL Q2H PRN 4 Days #15 mls PRN Reason: Anxiety OXYCODONE Oral CONC [Oxycodone Oral Conc] 5 mg PO Q6H PRN 4 Days #10 ml PRN Reason: pain/dyspnea Sennosides/Docusate Sodium [Senna Plus] 1 each PO BID 4 Days #8 tablet Home Medications: Albuterol Sulfate [Ventolin Hfa] 2 puff IH Q6H PRN 10/07/17 [History] Aspirin [Ecotrin] 325 mg PO DAILY 10/07/17 [History] Furosemide [Lasix] 20 mg PO DAILY 10/07/17 [History] Isosorbide MONOnitrate (24 HR) [Imdur] 60 mg PO DAILY 10/07/17 [History] Montelukast Sodium [Singulair] 10 mg PO HS 10/07/17 [History] Omeprazole [PriLOSEC] 40 mg PO DAILY 10/07/17 [History] diazePAM [Valium] 5 mg PO TID PRN 10/07/17 [History] Diltiazem HCl [Cardizem Cd] 360 mg PO DAILY 12/09/17 [History] Budesonide Neb [Pulmicort Neb] 0.5 mg IH BIDR 4 Days #8 ampul.neb 12/17/17 [Rx] Ipratropium/Albuterol Neb [Duoneb] 3 ml IH Q6HR 4 Days #16 vial.neb 12/17/17 [Rx ] LORazepam Oral Conc [Ativan Oral Conc] 0.5 mg SL Q2H PRN 4 Days #15 mls [Rx] Ondansetron ODT [Zofran ODT] 4 mg SL Q4HR PRN #24 tab.rapdis 12/17/17 [Rx] Sennosides/Docusate Sodium [Senna Plus] 1 each PO BID 4 Days #8 tablet 12/17/17 [Rx] OXYCODONE Oral CONC [Oxycodone Oral Conc] 5 mg PO Q6H PRN 4 Days #10 ml [Rx] Allergies/Adverse Reactions: 3 Allergy/AdvReac Type Severity Reaction Status Date / Time iodine AdvReac See Verified 10/07/17 14:34 Comments Certification: Further, I certify that my clinical findings support that this patient is homebound (i.e. absences from home require considerable and taxing effort and are for medical reasons or alevism services or infrequently or short duration when for other reasons) because: Homebound Reason: Patient requires assistance of a person or device to safely leave home Attestation: My signature below is to certify that this patient is under my care and that I, or nurse practitioner, or a physician's assistant manager airside operations working with me, has a face-to -face encounter with this patient.
[2017-12-22] MEDS ORDERED: Diltiazem CD (24hr) 240 MG CAPSULE PO SCH (09:00)
== END 2017-12-21 15:37 | disposition hospice, inpatient (51) | DRG 720 ==
LOC: 2NENU → SUATTDRO 19:56 → 2NENU 21:09 → SUATTDRO 12-09 16:57 → 2NENU 12-17 11:54
PROVIDERS: ADMIT Internal Medicine; ATTEND Family Medicine

== ENCOUNTER 2018-12-30 17:55 | Inpatient (IN) ==
[2018-12-30] MEDS ORDERED: Naloxone 0.4 MG/ML INJ IVP PRN (20:42)
[2018-12-30] MEDS ORDERED: Ipratropium/Albuterol Neb 3 ML IH PRN (21:50)
[2018-12-30 22:48] LABS: Calcium 7.8 mg/dL (8.6-10.3); Potassium 5.9 mEq/L (3.5-5.1)
[2018-12-30] MEDS: *HR* Heparin 5,000 UNIT/ML VIAL SQ SCH (22:55)
[2018-12-31] MEDS ORDERED: *HR* Dextrose 50 % in Water (Vial) 50 ML VIAL IVP ONE (01:38)
[2018-12-31] MEDS ORDERED: Insulin Human Regular 10 UNIT in 0.9 % Sodium Chloride 10 ML IV ONE (01:38)
[2018-12-31] MEDS ORDERED: 0.9 % Sodium Chloride 500 ML IVC SCH (01:45)
[2018-12-31] MEDS ORDERED: Budesonide Neb 0.5 MG/2 ML IH PRN (02:03)
[2018-12-31 05:02] LABS: Basophils % 0.2 %; Hemoglobin 7.9 g/dL (11.5-15.4); Red Cell Distribution Width 18.6 % (11.5-14.5)
[2018-12-31 05:04] LABS: Hematocrit 27.4 % (35.3-44.9); Immature Granulocytes % 0.5 % (0-4); Lymphocytes # 0.6 K/mcL (0.6-4.6); Lymphocytes % 4.8 %; Mean Corpuscular HGB Conc 28.8 g/dL (31.6-35.5); Mean Corpuscular Hemoglobin 30.2 pg (28.0-33.3); Mean Corpuscular Volume 104.6 fL (83.0-100.0); Mean Platelet Volume 10.3 fL (9.4-12.4); Monocytes # 0.2 K/mcL (0.0-1.3); Monocytes % 1.8 %; Neutrophils # 11.4 K/mcL (1.6-8.9); Platelet Count 240 K/mcL (140-400); Red Blood Count 2.62 M/mcL (3.82-4.97); Segmented Neutrophils % 92.7 %; White Blood Count 12.3 K/mcL (4.3-11.1)
[2018-12-31 05:09] LABS: INR 1.1; Prothrombin Time 12.1 Seconds (9.4-12.1)
[2018-12-31 05:11] LABS: Activated Partial Thrombo Time 30.5 Seconds (26.0-36.0)
[2018-12-31 05:19] LABS: Albumin/Globulin Ratio 0.9 (1.1-2.2); Bilirubin,Total 0.2 mg/dL (0.3-1.0); Globulin 3.4 g/dL (2.4-3.5); Magnesium 1.6 mg/dL (1.6-2.6); Phosphorous 5.6 mg/dL (2.7-4.5); Potassium 4.6 mEq/L (3.5-5.1); Total Protein 6.4 g/dL (6.4-8.9)
[2018-12-31] MEDS: *HR* Heparin 5,000 UNIT/ML VIAL SQ SCH ×3 (06:03→20:29)
[2018-12-31 06:11] LABS: Platelet Estimate Normal (Normal)
[2018-12-31 06:12] LABS: Anisocytosis 1+ (Not Present); Hypochromasia Present (Not Present)
[2018-12-31] MEDS: Azithromycin 500 MG in 0.9 % Sodium Chloride 250 ML IVPB SCH (09:45)
[2018-12-31] MEDS: Isosorbide MONOnitrate (24 HR) 60 MG TAB.ER.24H PO SCH (09:45)
[2018-12-31] MEDS: cefTRIAXone 1,000 MG in Water for inj. (sterile) 10 ML IVP SCH (09:45)
[2018-12-31] MEDS: Aspirin Enteric Coated 81 MG Tablet PO SCH (09:45)
[2018-12-31 11:07] LABS: Adenovirus Not Detected (Not Detect)
[2018-12-31 11:08] LABS: Bordetella Pertussis Not Detected (Not Detect); Chlamydophila pneumoniae Not Detected (Not Detect); Coronavirus 229E Not Detected (Not Detect); Coronavirus HKU1 Not Detected (Not Detect); Coronavirus NL63 Not Detected (Not Detect); Coronavirus OC43 Not Detected (Not Detect); Human Metapneumovirus Not Detected (Not Detect); Human Rhinovirus/Enterovirus Not Detected (Not Detect); Influenza A Subtype 2009 H1 Not Detected (Not Detect); Influenza A Untypeable Not Detected (Not Detect); Influenza B Not Detected (Not Detect); Mycoplasma pneumoniae Not Detected (Not Detect); Parainfluenza Virus 1 Not Detected (Not Detect); Parainfluenza Virus 2 Not Detected (Not Detect); Parainfluenza Virus 3 Not Detected (Not Detect); Parainfluenza Virus 4 Not Detected (Not Detect); Respiratory Syncytial Virus Not Detected (Not Detect)
[2019-01-01] MEDS: diazePAM 5 MG TABLET PO PRN ×2 (00:21→21:25)
[2019-01-01 00:29] LABS: Protein/Creatinine Ratio,Urine 3.69 mg/mg (0.00-0.20); Sodium, Urine 68.6 mEq/L
[2019-01-01] MEDS: *HR* Heparin 5,000 UNIT/ML VIAL SQ SCH ×3 (05:24→21:25)
[2019-01-01 07:10] LABS: Basophils % 0.3 %; Eosinophils # 0.2 K/mcL (0.0-0.6); Eosinophils % 2.1 %; Hematocrit 25.5 % (35.3-44.9); Hemoglobin 7.5 g/dL (11.5-15.4); Immature Granulocytes % 0.5 % (0-4); Lymphocytes # 2.9 K/mcL (0.6-4.6); Lymphocytes % 25.2 %; Mean Corpuscular HGB Conc 29.4 g/dL (31.6-35.5); Mean Platelet Volume 11.6 fL (9.4-12.4); Monocytes # 0.9 K/mcL (0.0-1.3); Monocytes % 7.4 %; Neutrophils # 7.5 K/mcL (1.6-8.9); Nucleated Red Blood Cells 0.2 /100 WBC (0); Platelet Count 156 K/mcL (140-400); Red Cell Distribution Width 18.5 % (11.5-14.5); Segmented Neutrophils % 64.5 %
[2019-01-01 07:45] LABS: White Blood Count 11.6 K/mcL (4.3-11.1)
[2019-01-01 07:46] LABS: Folate 4.4 ng/mL (3.0-16.0)
[2019-01-01] MEDS: Diclofenac Sodium (24 HR) 100 MG TABLET PO SCH ×2 (09:14→21:25)
[2019-01-01] MEDS: Aspirin Enteric Coated 81 MG Tablet PO SCH (09:14)
[2019-01-01] MEDS: cefTRIAXone 1,000 MG in Water for inj. (sterile) 10 ML IVP SCH (09:14)
[2019-01-01] MEDS: Isosorbide MONOnitrate (24 HR) 60 MG TAB.ER.24H PO SCH (09:14)
[2019-01-01] MEDS: Azithromycin 500 MG in 0.9 % Sodium Chloride 250 ML IVPB SCH (09:15)
[2019-01-01 09:40] LABS: Albumin 2.9 g/dL (3.5-5.7); Calcium 7.2 mg/dL (8.6-10.3); Phosphorous 5.9 mg/dL (2.7-4.5); Potassium 3.8 mEq/L (3.5-5.1)
[2019-01-01 10:09] LABS: ABG Base Excess -10 mEq/L (-2 to 3); ABG HCO3 17 mEq/L (21-27); ABG Oxygen Saturation 74 % (95-98); ABG PCO2 41 mmHg (35-45); ABG PH 7.22 pH Units (7.32-7.45); ABG PO2 46 mmHg (85-104); ABG TCO2 18 mEq/L (20-26)
[2019-01-01 10:49] LABS: Calcium 7.2 mg/dL (8.6-10.3); Potassium 3.3 mEq/L (3.5-5.1)
[2019-01-01] MEDS: 0.9 % Sodium Chloride 1,000 ML IVC SCH (13:36)
[2019-01-01] MEDS ORDERED: Simethicone 80 MG TAB.CHEW PO PRN (22:17)
[2019-01-02 05:10] LABS: Basophils % 0.3 %; Eosinophils # 0.5 K/mcL (0.0-0.6); Eosinophils % 4.6 %; Hematocrit 24.3 % (35.3-44.9); Hemoglobin 7.2 g/dL (11.5-15.4); Immature Granulocytes % 1.1 % (0-4); Lymphocytes # 2.4 K/mcL (0.6-4.6); Lymphocytes % 24.9 %; Mean Corpuscular HGB Conc 29.6 g/dL (31.6-35.5); Mean Corpuscular Hemoglobin 30.3 pg (28.0-33.3); Mean Corpuscular Volume 102.1 fL (83.0-100.0); Mean Platelet Volume 10.5 fL (9.4-12.4); Monocytes # 0.6 K/mcL (0.0-1.3); Monocytes % 6.4 %; Neutrophils # 6.1 K/mcL (1.6-8.9); Nucleated Red Blood Cells 0.2 /100 WBC (0); Platelet Count 243 K/mcL (140-400); Red Blood Count 2.38 M/mcL (3.82-4.97); Red Cell Distribution Width 18.3 % (11.5-14.5); Segmented Neutrophils % 62.7 %; White Blood Count 9.8 K/mcL (4.3-11.1)
[2019-01-02 05:30] LABS: Calcium 6.9 mg/dL (8.6-10.3)
[2019-01-02 05:39] LABS: Platelet Estimate Normal (Normal)
[2019-01-02] MEDS: *HR* Heparin 5,000 UNIT/ML VIAL SQ SCH ×3 (06:22→21:01)
[2019-01-02] MEDS: Isosorbide MONOnitrate (24 HR) 60 MG TAB.ER.24H PO SCH (08:57)
[2019-01-02] MEDS: Aspirin Enteric Coated 81 MG Tablet PO SCH (08:58)
[2019-01-02] MEDS: 0.9 % Sodium Chloride 1,000 ML IVC SCH (09:06)
[2019-01-02] MEDS: Diclofenac Sodium (24 HR) 100 MG TABLET PO SCH (09:37)
[2019-01-02] MEDS: Azithromycin 250 MG TABLET PO SCH (09:40)
[2019-01-02] MEDS: cefTRIAXone 1,000 MG in 0.9 % Sodium Chloride Mini Bag 100 ML IVPB SCH (09:59)
[2019-01-02] MEDS ORDERED: Acetaminophen 325 MG TABLET PO PRN (10:21)
[2019-01-02] MEDS: Sodium Bicarbonate 75 MEQ in 0.45 % Sodium Chloride 1,000 ML IVC SCH (14:58)
[2019-01-02] MEDS: Ipratropium/Albuterol Neb 3 ML IH SCH ×2 (15:07→22:07)
[2019-01-02] MEDS: diazePAM 5 MG TABLET PO PRN (21:35)
[2019-01-02] MEDS: Budesonide Neb 0.5 MG/2 ML IH SCH (22:07)
[2019-01-03] MEDS ORDERED: Acetaminophen 325 MG TABLET PO PRN (01:19)
[2019-01-03] MEDS: *HR* Heparin 5,000 UNIT/ML VIAL SQ SCH ×3 (05:33→20:09)
[2019-01-03] MEDS: Sodium Bicarbonate 75 MEQ in 0.45 % Sodium Chloride 1,000 ML IVC SCH (05:38)
[2019-01-03 06:06] LABS: Basophils % 0.3 %; Hemoglobin 6.9 g/dL (11.5-15.4); Mean Platelet Volume 10.3 fL (9.4-12.4); Red Cell Distribution Width 18.4 % (11.5-14.5)
[2019-01-03 06:08] LABS: Eosinophils # 0.4 K/mcL (0.0-0.6); Eosinophils % 4.4 %; Hematocrit 23.6 % (35.3-44.9); Immature Granulocytes % 2.1 % (0-4); Lymphocytes # 1.9 K/mcL (0.6-4.6); Lymphocytes % 19.1 %; Mean Corpuscular HGB Conc 29.2 g/dL (31.6-35.5); Mean Corpuscular Hemoglobin 30.1 pg (28.0-33.3); Mean Corpuscular Volume 103.1 fL (83.0-100.0); Monocytes # 0.6 K/mcL (0.0-1.3); Monocytes % 6.5 %; Neutrophils # 6.6 K/mcL (1.6-8.9); Nucleated Red Blood Cells 0.2 /100 WBC (0); Platelet Count 222 K/mcL (140-400); Red Blood Count 2.29 M/mcL (3.82-4.97); Segmented Neutrophils % 67.6 %; White Blood Count 9.7 K/mcL (4.3-11.1)
[2019-01-03 06:25] LABS: Calcium 6.7 mg/dL (8.6-10.3); Potassium 4.3 mEq/L (3.5-5.1)
[2019-01-03 06:30] LABS: Anisocytosis 1+ (Not Present); Hypochromasia Present (Not Present); Microcytosis Present (Not Present); Platelet Estimate Normal (Normal)
[2019-01-03] MEDS: Ipratropium/Albuterol Neb 3 ML IH SCH ×3 (07:33→22:04)
[2019-01-03] MEDS: Budesonide Neb 0.5 MG/2 ML IH SCH ×2 (07:33→22:04)
[2019-01-03] MEDS: Aspirin Enteric Coated 81 MG Tablet PO SCH (08:00)
[2019-01-03] MEDS: Azithromycin 250 MG TABLET PO SCH (08:00)
[2019-01-03] MEDS: cefTRIAXone 1,000 MG in 0.9 % Sodium Chloride Mini Bag 100 ML IVPB SCH (08:00)
[2019-01-03] MEDS: Isosorbide MONOnitrate (24 HR) 60 MG TAB.ER.24H PO SCH (08:00)
[2019-01-03] MEDS: Folic Acid 1 MG TABLET PO SCH (09:32)
[2019-01-03 09:41] LABS: Bilirubin,Urine Negative (Negative); Blood,Urine Small (Negative); Clarity,Urine Clear (Clear); Color,Urine Yellow (Yellow); Glucose,Urine (UA) 100 mg/dL (Normal); Ketones,Urine Negative (Negative); Leukocyte Esterase,Urine Small (Negative); Nitrite,Urine Negative (Negative); PH,Urine 6.5 pH Units (5.0-8.0); Protein,Urine 100 mg/dL (Neg-Trace); Specific Gravity,Urine 1.011 (1.010-1.025); Urobilinogen,Urine Normal (Normal)
[2019-01-03 09:45] LABS: Bacteria,Urine None Seen per hpf (None-Few); Hyaline Casts,Urine None Seen per lpf (None-Few); Squamous Epithelial Cell,Urine Many per lpf (None-Few)
[2019-01-03 09:59] LABS: Yeast,Urine Few per hpf (None Seen)
[2019-01-03] MEDS ORDERED: 0.9 % Sodium Chloride 500 ML ONE ×2 (11:29→15:27)
[2019-01-03] MEDS: Acetaminophen 325 MG TABLET PO PRN ×2 (13:47→20:06)
[2019-01-03] MEDS: diazePAM 5 MG TABLET PO PRN ×2 (13:47→20:08)
[2019-01-03] MEDS ORDERED: Melatonin 3 MG TABLET PO ONE (23:38)
[2019-01-04] MEDS: Acetaminophen 325 MG TABLET PO PRN ×2 (05:42→21:12)
[2019-01-04] MEDS: *HR* Heparin 5,000 UNIT/ML VIAL SQ SCH ×2 (05:43→14:38)
[2019-01-04 06:15] LABS: Basophils # 0.1 K/mcL (0.0-0.2); Basophils % 0.5 %; Eosinophils # 0.6 K/mcL (0.0-0.6); Eosinophils % 4.5 %; Hematocrit 30.8 % (35.3-44.9); Immature Granulocytes % 2.4 % (0-4); Lymphocytes # 2.6 K/mcL (0.6-4.6); Mean Corpuscular HGB Conc 30.8 g/dL (31.6-35.5); Mean Corpuscular Hemoglobin 29.9 pg (28.0-33.3); Mean Platelet Volume 10.6 fL (9.4-12.4); Monocytes # 0.8 K/mcL (0.0-1.3); Monocytes % 6.3 %; Platelet Count 242 K/mcL (140-400); Red Blood Count 3.18 M/mcL (3.82-4.97); Red Cell Distribution Width 18.7 % (11.5-14.5); Segmented Neutrophils % 65.3 %; White Blood Count 12.3 K/mcL (4.3-11.1)
[2019-01-04 06:20] LABS: Hemoglobin 9.5 g/dL (11.5-15.4); Mean Corpuscular Volume 96.9 fL (83.0-100.0)
[2019-01-04 06:31] LABS: Calcium 6.9 mg/dL (8.6-10.3); Potassium 4.8 mEq/L (3.5-5.1)
[2019-01-04] MEDS ORDERED: *HR* Metoprolol 5 MG/5 ML VIAL IVP ONE (07:30)
[2019-01-04] MEDS: Budesonide Neb 0.5 MG/2 ML IH SCH ×2 (07:52→22:38)
[2019-01-04] MEDS: Ipratropium/Albuterol Neb 3 ML IH SCH ×3 (07:52→22:38)
[2019-01-04 08:11] LABS: Platelet Estimate Normal (Normal)
[2019-01-04] MEDS: cefTRIAXone 1,000 MG in 0.9 % Sodium Chloride Mini Bag 100 ML IVPB SCH (08:13)
[2019-01-04] MEDS: Folic Acid 1 MG TABLET PO SCH (08:14)
[2019-01-04] MEDS: Isosorbide MONOnitrate (24 HR) 60 MG TAB.ER.24H PO SCH (08:14)
[2019-01-04] MEDS: Azithromycin 250 MG TABLET PO SCH (08:14)
[2019-01-04] MEDS: Aspirin Enteric Coated 81 MG Tablet PO SCH (08:15)
[2019-01-04] MEDS ORDERED: *HR* Metoprolol 5 MG/5 ML VIAL IVP PRN (09:21)
[2019-01-04 09:58] LABS: Magnesium 1.4 mg/dL (1.6-2.6)
[2019-01-04 10:12] LABS: Troponin I 0.04 ng/mL (< 0.04)
[2019-01-04 10:41] LABS: Thyroid Stimulating Hormone 0.487 mcIU/mL (0.340-5.600)
[2019-01-04] MEDS ORDERED: Albumin 25% 25gram/100mL 25 GM/100 ML IV.SOLN IVPB ONE (11:51)
[2019-01-04] MEDS ORDERED: Furosemide 40 MG/4 ML VIAL IVP ONE (11:52)
[2019-01-04] MEDS: Metoprolol XL (24 HR) Succ 25 MG TAB.ER.24H PO SCH (16:55)
[2019-01-04] MEDS ORDERED: SODIUM CHLORIDE/NAHCO3/KCL/PEG 4,000 ML SOLN.RECON PO ONE (17:00)
[2019-01-04] MEDS: diazePAM 5 MG TABLET PO PRN (21:12)
[2019-01-05 05:06] LABS: Basophils # 0.1 K/mcL (0.0-0.2); Basophils % 0.5 %; Eosinophils # 0.5 K/mcL (0.0-0.6); Hematocrit 30.3 % (35.3-44.9); Hemoglobin 9.1 g/dL (11.5-15.4); Immature Granulocytes % 2.5 % (0-4); Lymphocytes # 2.2 K/mcL (0.6-4.6); Lymphocytes % 17.6 %; Mean Corpuscular Hemoglobin 29.5 pg (28.0-33.3); Mean Corpuscular Volume 98.4 fL (83.0-100.0); Mean Platelet Volume 10.8 fL (9.4-12.4); Monocytes # 0.9 K/mcL (0.0-1.3); Monocytes % 7.4 %; Neutrophils # 8.6 K/mcL (1.6-8.9); Nucleated Red Blood Cells 0.2 /100 WBC (0); Platelet Count 257 K/mcL (140-400); Red Blood Count 3.08 M/mcL (3.82-4.97); Red Cell Distribution Width 18.8 % (11.5-14.5); White Blood Count 12.6 K/mcL (4.3-11.1)
[2019-01-05 05:47] LABS: Platelet Estimate Normal (Normal)
[2019-01-05 05:48] LABS: Anisocytosis 1+ (Not Present); Reactive Lymphocytes Present (Not Present)
[2019-01-05 05:51] LABS: Calcium 7.6 mg/dL (8.6-10.3)
[2019-01-05] MEDS: Budesonide Neb 0.5 MG/2 ML IH SCH ×2 (07:54→23:22)
[2019-01-05] MEDS: Ipratropium/Albuterol Neb 3 ML IH SCH ×3 (07:54→23:22)
[2019-01-05] MEDS: Folic Acid 1 MG TABLET PO SCH (09:17)
[2019-01-05] MEDS: Azithromycin 250 MG TABLET PO SCH (09:17)
[2019-01-05] MEDS: Metoprolol XL (24 HR) Succ 25 MG TAB.ER.24H PO SCH (09:17)
[2019-01-05] MEDS: Aspirin Enteric Coated 81 MG Tablet PO SCH (09:18)
[2019-01-05] MEDS: Isosorbide MONOnitrate (24 HR) 60 MG TAB.ER.24H PO SCH (09:18)
[2019-01-05] MEDS: cefTRIAXone 1,000 MG in 0.9 % Sodium Chloride Mini Bag 100 ML IVPB SCH (09:18)
[2019-01-05] MEDS ORDERED: Albumin 25% 25gram/100mL 25 GM/100 ML IV.SOLN IVPB ONE (10:04)
[2019-01-05] MEDS ORDERED: Furosemide 40 MG/4 ML VIAL IVP ONE (10:04)
[2019-01-05] MEDS: *HR* Heparin 5,000 UNIT/ML VIAL SQ SCH (22:13)
[2019-01-05] MEDS: Acetaminophen 325 MG TABLET PO PRN (22:23)
[2019-01-05] MEDS: diazePAM 5 MG TABLET PO PRN (22:24)
[2019-01-06] MEDS: Acetaminophen 325 MG TABLET PO PRN (06:22)
[2019-01-06] MEDS: *HR* Heparin 5,000 UNIT/ML VIAL SQ SCH ×2 (06:22→15:28)
[2019-01-06 06:38] LABS: Basophils # 0.1 K/mcL (0.0-0.2); Basophils % 0.5 %; Eosinophils # 0.4 K/mcL (0.0-0.6); Eosinophils % 4.6 %; Hematocrit 29.3 % (35.3-44.9); Hemoglobin 9.1 g/dL (11.5-15.4); Immature Granulocytes % 2.2 % (0-4); Lymphocytes # 2.5 K/mcL (0.6-4.6); Lymphocytes % 26.6 %; Mean Corpuscular HGB Conc 31.1 g/dL (31.6-35.5); Mean Corpuscular Hemoglobin 30.1 pg (28.0-33.3); Mean Platelet Volume 11.4 fL (9.4-12.4); Monocytes # 0.8 K/mcL (0.0-1.3); Monocytes % 8.4 %; Neutrophils # 5.4 K/mcL (1.6-8.9); Platelet Count 272 K/mcL (140-400); Red Blood Count 3.02 M/mcL (3.82-4.97); Red Cell Distribution Width 18.6 % (11.5-14.5); Segmented Neutrophils % 57.7 %; White Blood Count 9.4 K/mcL (4.3-11.1)
[2019-01-06 06:51] LABS: Calcium 7.8 mg/dL (8.6-10.3); Potassium 4.9 mEq/L (3.5-5.1)
[2019-01-06] MEDS: Ipratropium/Albuterol Neb 3 ML IH SCH ×2 (07:18→15:37)
[2019-01-06] MEDS: Budesonide Neb 0.5 MG/2 ML IH SCH (07:18)
[2019-01-06] MEDS ORDERED: Propofol 500 MG/50 ML INFUS..BTL ONE (07:32)
[2019-01-06] MEDS ORDERED: Lidocaine -MPF 2% 2 ML VIAL ONE (07:34)
[2019-01-06] MEDS ORDERED: 0.9 % Sodium Chloride 1,000 ML IVC SCH (08:15)
[2019-01-06] MEDS: Folic Acid 1 MG TABLET PO SCH (10:36)
[2019-01-06] MEDS: Aspirin Enteric Coated 81 MG Tablet PO SCH (10:37)
[2019-01-06] MEDS: cefTRIAXone 1,000 MG in 0.9 % Sodium Chloride Mini Bag 100 ML IVPB SCH (10:37)
[2019-01-06] MEDS: Metoprolol XL (24 HR) Succ 25 MG TAB.ER.24H PO SCH (10:37)
[2019-01-06] MEDS: Isosorbide MONOnitrate (24 HR) 60 MG TAB.ER.24H PO SCH (10:37)
[2019-01-06 15:24] VITALS: BP 103/61
[2019-01-09 18:41] LABS: Hepatitis B Surface Antibody < 3.10 mIU/mL
[2019-01-09 18:53] LABS: Hepatitis B Surface Antigen Nonreactive (Nonreactive)
[2019-01-09 19:22] LABS: Hepatitis B Core IgM Nonreactive (Nonreactive)
== END 2019-01-06 17:42 | disposition home or self-care (01) | DRG 137 ==
LOC: 2ANU → SUATTDRO 19:43
PROVIDERS: ADMIT Internal Medicine; ATTEND Internal Medicine
PROC: ENDOEBX (~2018-12-30)